=== PATIENT | female | born 1980 | race Caucasian/White ===

== ENCOUNTER 2023-11-24 07:49 | Outpatient (REF) | payer OTHER, SELFPAY ==
[2023-11-24 11:50] LABS: Thyroid Stimulating Hormone 0.57 uIU/mL (0.32-4.0)
[2023-11-25 15:38] LABS: Follicle Stimulating Hormone 38.9 mIU/mL
[2023-11-30 01:18] LABS: Estradiol Ultra Sensitive 101 pg/mL
== END 2023-11-24 07:50 | disposition home or self-care (01) ==
LOC: HO.10HDL 07:49
PROVIDERS: Visit Provider Obstetrics & Gynecology
DX: R61 Generalized hyperhidrosis (principal)
CPT/HCPCS: 36415; 82670; 83001; 84443

== ENCOUNTER 2024-03-23 07:10 | Outpatient (AMB) | payer OTHER, SELFPAY ==
--- NOTE | 2024-03-23 08:32 | MHC.OFFVIS ---
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 Denies any previous injuries. Patient reports pain on her right side scapula. She states she has a very large muscle knots that she has been having for a few years now. Her symptoms started intensifying about a year ago. She is unable to find a comfortable position. When her symptoms flare up she is unable to find relief. This is going on daily, different intensity depending on the day. She describes her pain as aching and pulling. Pressure feels better. When she pulls her arm forward and places a tennis ball on her scapula and then pushes against the wall this gives her relief. Occasionally having numbness and tingling in her right pinky and right ring finger which she thinks may be related to spine. Some times she feels like she has to pop something in her back so she will pull her arm forward forcefully and will find relief after the pop occurs. She has tried ibuprofen and naproxen for relief but has not been successful. Allergies Seasonal Allergies Allergy (Severe, Verified 03/23/24 08:35) Itchy Eyes Medication List - Last Reconciled 03/23/24 by Joann Byers MD amitriptyline 10 mg PO BEDTIME fremanezumab-vfrm (Ajovy) 675 mg subcut [id number] loratadine 10 mg PO DAILY sumatriptan 20 mg/actuation mg intranasal topiramate mg PO HPI Comments Details: Right upper back/scapular, gradually progressive, on/off but more consistent/intensified to becoming more constant. No shoulder anterior pain. Rare posterior neck pain. Non radiating to arm. She can adjust the area/posture to pop it. Occasional episodes with 4th and 5th digits. No weakness. Denies posterior headache. Treatment done so far: massage History of vertigo, migraines, thyroid. 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 Patient was appropriately conversant and oriented. Good historian. MSK: Inspection reveals appropriate head and neck positioning. No pain with palpation over the neck musculature. Cervical ROM was full. Spurling's sign negative. Bilateral shoulder, elbow and wrist ROM WNL. No ligamentous laxity or crepitance. No increased effusion. No scapular winging. Focal tenderness on right rhomboids spine or as it inserts into scapula. Negative Garcia sign. Negative empty can sign. Negative speed's test. Strength is 5/5 in all muscle groups tested. No increased tone noted. Neurological: Neurologic examination of the upper and lower extremities was nonfocal with intact sensation, muscle stretch reflexes and without focal motor deficits . Becerra?s negative bilaterally. Gait is non-antalgic without loss of balance. Office Procedures Therapeutic Injection Therapeutic Injection Details: Trigger point injection, right rhomboids minor. Conset obtained. Trigger points palpated on right rhomboids minor, proximal/as it attaches to scapula. Needling performed with gauge 27 needle, subsequently injecting 1 ml of 2% Lidocaine. Patient tolerated procedure well. Post-injection instructions given. 51241-Aiquppw Point Injection 1 or 2 sites All charges added?: Procedure code (CPT) selection complete Assessment & Plan Assessment & Plan (1) Pain of right scapula: Code(s): M89.8X1 - Other specified disorders of bone, shoulder Category: Medical (2) Myofascial pain: Code(s): M79.18 - Myalgia, other site Category: Medical Plan Very focal sharp pain on right rhomboids minor as it attaches to scapula. Almost feels like a tight cord. Suspect trigger point. She does not have any signs of cervical or thoracic spine radiculitis. There is no scapular winging. We talked about trigger point injections. Patient was eager to proceed. Patient tolerated procedure well. We will schedule 2 more, we total of 3 in series. Scapular x-ray was done prior to injection. Other options in the future would include referral to Dr. Delarosa for trigger point injection under ultrasound or PRP injection. Assessment and plan discussed with patient, and patient was agreeable. All questions were answered thoroughly. Joann Byers MD, YOLY Board Certified, [place] Board [employer] Medicine and Rehabilitation (ABPMR) Board Certified, [place] Board of Electrodiagnostic Medicine (ABEM) Orders: Orders XR scapula RT Today M89.8X1 - Other specified disorders of bone, shoulder AMB Trigger Point Injection Today M79.18 - Myalgia, other site Coding Level of Care Code New Pt Level 4 (40145) Diagnoses Pain of right scapula M89.8X1 Myofascial pain M79.18 CPT Codes Therapeutic Injection - Ther Injection 1: 89556-Ikvtedt Point Injection 1 or 2 sites ([id number])
[2024-03-23 08:33] VITALS: BMI 20.8
== END 2024-03-23 12:02 | disposition home or self-care (01) ==
PROVIDERS: Visit Provider Physical Medicine & Rehabilitation
DX: M89.8X1 Other specified disorders of bone, shoulder (principal); M79.18 Myalgia, other site
CPT/HCPCS: 20552; 99204

== ENCOUNTER 2024-03-23 07:10 | Outpatient (REF) | payer OTHER, SELFPAY | END 2024-03-23 07:11 | disposition home or self-care (01) | LOC: HO.HOSX 07:10 | PROVIDERS: Visit Provider Physical Medicine & Rehabilitation | DX: M79.18 Myalgia, other site (principal); M89.8X1 Other specified disorders of bone, shoulder | CPT/HCPCS: 20552; 73010; J2003 ==

== ENCOUNTER 2024-03-29 08:32 | Outpatient (AMB) | payer OTHER, MEDICAID, SELFPAY ==
[2024-03-29 08:36] VITALS: BMI 20.8
--- NOTE | 2024-03-29 08:36 | MHC.OFFVIS ---
Vital Signs 03/29/24 08:36 Height 5 ft 5 in Weight 125 lb BMI 20.8 Intake Visit Reasons: Trigger Point #2 Intake Note: Layla is a 43 year old female who presents today for: trigger point injection #2. Last injection administered on 03/23/24. Allergies Seasonal Allergies Allergy (Severe, Verified 03/29/24 08:36) Itchy Eyes HPI Comments Details: Layla says there was some relief overall from last week's injection. 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 I do not feel the same cord like swelling that I did last week. Office Procedures Therapeutic Injection Therapeutic Injection Details: Trigger point injection, right rhomboids minor. Consent obtained. Trigger points palpated on right rhomboids minor, proximal/as it attaches to scapula. Needling performed with gauge 27 needle, subsequently injecting 1 ml of 2% Lidocaine. 11658-Jjzzjrb Point Injection 1 or 2 sites All charges added?: Procedure code (CPT) selection complete Assessment & Plan Assessment & Plan (1) Myofascial pain: Code(s): M79.18 - Myalgia, other site Category: Medical Plan Tolerated procedure well. We have 1 last injection next week then we will continue to observe if this resolves her symptoms. No restrictions, can work out or exercise at home. Assessment and plan discussed with patient, and patient was agreeable. All questions were answered thoroughly. Joann Byers MD, YOLY Board Certified, [place] [employer] Medicine and Rehabilitation (ABPMR) Board Certified, [place] Board [employer] Electrodiagnostic Medicine (ABEM) Orders: Orders AMB Trigger Point Injection Today M79.18 - Myalgia, other site Coding Level of Care Code Procedure Only Diagnoses Myofascial pain M79.18 CPT Codes Therapeutic Injection - Ther Injection 1: 71682-Mkadict Point Injection 1 or 2 sites ([id number])
== END 2024-03-29 10:51 | disposition home or self-care (01) ==
LOC: HO.HOS 08:33
PROVIDERS: Visit Provider Physical Medicine & Rehabilitation
DX: M79.18 Myalgia, other site (principal)
CPT/HCPCS: 20552

== ENCOUNTER → 2024-03-29 08:32 | Outpatient (BNVA) | payer OTHER, MEDICAID, SELFPAY | PROVIDERS: Visit Provider Physical Medicine & Rehabilitation | DX: M79.18 Myalgia, other site (principal) | CPT/HCPCS: 20552; J2003 ==

== ENCOUNTER 2024-04-05 10:23 | Outpatient (AMB) | payer OTHER, MEDICAID, SELFPAY ==
--- NOTE | 2024-04-05 10:24 | A.OFFVIS_ITS ---
Intake Visit Reasons: Trigger Point #3 Intake Note: Layla is a 43 year old female who presents today for: trigger point injection #3. Patient reports her pain has traveled further down, she would like to discuss injection. Allergies Seasonal Allergies Allergy (Severe, Verified 04/05/24 10:25) Itchy Eyes HPI Comments Details: She feels that the area that was very tight and tender previously is now improved. But there is an area lower to that that is tighter now. 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 But she does have a tightness/trigger point a little bit lower to that area, on rhomboids major. Office Procedures Therapeutic Injection Therapeutic Injection Details: Trigger point injection, right rhomboids. Consent obtained. Trigger points palpated on right rhomboids. Needling performed with gauge 27 needle, subsequently injecting 1 ml of 2% Lidocaine., injecting 2 sites, total of 2 mL. Patient tolerated procedure well. Post-injection instructions given. 32081-Amtttsr Point Injection 1 or 2 sites All charges added?: Procedure code (CPT) selection complete Assessment & Plan Assessment & Plan (1) Myofascial pain: Code(s): M79.18 - Myalgia, other site Category: Medical Plan Tolerated procedure well. We might need to inject the new trigger point further. We will touch base with Layla tomorrow. Assessment and plan discussed with patient, and patient was agreeable. All questions were answered thoroughly. Joann Byers MD, YOLY Board Certified, [place] Board [employer] Medicine and Rehabilitation (ABPMR) Board Certified, [place] Board [employer] Electrodiagnostic Medicine (ABEM) Orders: Orders AMB Trigger Point Injection Today M79.18 - Myalgia, other site Coding Level of Care Code Procedure Only Diagnoses Myofascial pain M79.18 CPT Codes Therapeutic Injection - Ther Injection 1: 16140-Gnkbrco Point Injection 1 or 2 sites ([id number])
== END 2024-04-05 10:53 | disposition home or self-care (01) ==
LOC: HO.HOS 10:23
PROVIDERS: Visit Provider Physical Medicine & Rehabilitation
DX: M79.18 Myalgia, other site (principal); M89.8X1 Other specified disorders of bone, shoulder
CPT/HCPCS: 20552

== ENCOUNTER → 2024-04-05 10:23 | Outpatient (BNVA) | payer OTHER, MEDICAID, SELFPAY | PROVIDERS: Visit Provider Physical Medicine & Rehabilitation | DX: M79.18 Myalgia, other site (principal) | CPT/HCPCS: 20552; J2003 ==

== ENCOUNTER 2024-04-19 12:17 | Outpatient (AMB) | payer OTHER, MEDICAID, SELFPAY ==
--- NOTE | 2024-04-19 12:21 | A.OFFVIS_ITS ---
Vital Signs 04/19/24 12:22 Height 5 ft 5 in Weight 125 lb BMI 20.8 Intake Visit Reasons: Inj- Right Trigger Point Injection #4 Intake Note: Layla is a 43 year old female who presents today for: trigger point injection #4. Patient reports her pain has traveled further down, she would like to repeat her injection. Allergies Seasonal Allergies Allergy (Severe, Verified 04/19/24 12:22) Itchy Eyes HPI Comments Details: Reports improvement from last injection. 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 Consent obtained. Trigger points palpated on right rhomboids. Needling performed with gauge 27 needle, subsequently injecting 1 ml of 2% Lidocaine. Patient tolerated procedure well. Post-injection instructions given. 29895-Hqwnoyg Point Injection 1 or 2 sites All charges added?: Procedure code (CPT) selection complete Assessment & Plan Assessment & Plan (1) Myofascial pain: Code(s): M79.18 - Myalgia, other site Category: Medical Plan Tolerated procedure well. One more injection next week. Assessment and plan discussed with patient, and patient was agreeable. All questions were answered thoroughly. Joann Byers MD, YOLY Board Certified, [place] Board of Physical Medicine and Rehabilitation (ABPMR) Board Certified, [place] Board of Electrodiagnostic Medicine (ABEM) Orders: Orders AMB Trigger Point Injection Today M79.18 - Myalgia, other site Coding Level of Care Code Procedure Only Diagnoses Myofascial pain M79.18 CPT Codes Therapeutic Injection - Ther Injection 1: 99494-Jaamkfs Point Injection 1 or 2 sites ([id number])
[2024-04-19 12:22] VITALS: BMI 20.8
== END 2024-04-19 12:49 | disposition home or self-care (01) ==
LOC: HO.HOS 12:17
PROVIDERS: Visit Provider Physical Medicine & Rehabilitation
DX: M79.18 Myalgia, other site (principal); M89.8X1 Other specified disorders of bone, shoulder
CPT/HCPCS: 20552

== ENCOUNTER → 2024-04-19 12:17 | Outpatient (BNVA) | payer OTHER, MEDICAID, SELFPAY | PROVIDERS: Visit Provider Physical Medicine & Rehabilitation | DX: M79.18 Myalgia, other site (principal) | CPT/HCPCS: 20552; J2003 ==

== ENCOUNTER 2024-07-26 12:25 | Emergency (ER) | payer OTHER, SELFPAY ==
--- NOTE | ~2024-07-26 | US_ITS ---
EXAMINATION: US PELVIS CLINICAL INFORMATION: Right lower quadrant pain rule out ovarian torsion or abscess. COMPARISON: CT abdomen and pelvis with IV contrast performed earlier same day. TECHNIQUE: Ultrasound of the pelvis is performed using both transabdominal and transvaginal transducers along with Doppler. Transvaginal imaging is performed due to inadequate visualization transabdominally. FINDINGS: Uterus: The uterus is anteverted, anteflexed, and measures 11.5 x 4.1 x 5.1 cm. Normal-appearing cervix. The double wall endometrial thickness is 9 mm. It is uniform without irregularity. The uterus is smooth in contour and has normal myometrial echogenicity. No visible fibroid. Adnexa: Both ovaries are visualized. There is normal color flow to the adnexa. There is no ovarian torsion. There is no pelvic ascites or fluid collection. Right ovary measures 2.7 x 1.2 x 1.3 cm. Volume = 2.2 mL. Normal sonographic appearance. Left ovary measures 2.4 x 2.5 x 2.2 cm. Volume = 7.2 mL. 1.9 cm follicular simple cyst. Otherwise normal sonographic appearance. US/US pelvic ovarian doppler IMPRESSION: Normal pelvic ultrasound. Electronically signed by: Andrew Meyer MD 07/26/2024 04:33 PM EDT
--- NOTE | ~2024-07-26 | CT_ITS ---
EXAMINATION: CT ABDOMEN PELVIS WITH IV CONTRAST HISTORY: RLQ pain COMPARISON: There are no prior studies for comparison. TECHNIQUE: CT scan of the abdomen and pelvis was performed following administration of 85 mL Omnipaque 350 using standard departmental protocol. Coronal and sagittal reformatted images were generated and reviewed. Oral contrast material was not administered at the request of the referring physician. This CT exam was performed with one or more of the following dose reduction techniques: automated exposure control, adjustment of the mA and/or kV according to patient size, use of iterative reconstruction technique. DLP: 397 mGy-cm FINDINGS: LOWER CHEST: The visualized lung bases are clear. There is no pleural effusion. CARDIOVASCULATURE: The heart is normal in size. There is no pericardial effusion. LIVER: The liver is normal in size and contour. No liver mass is identified. The hepatic and portal veins are patent. GALLBLADDER / BILE DUCTS: The gallbladder is unremarkable. There is no intra or extrahepatic biliary ductal dilatation. SPLEEN: The spleen is normal in size. No focal splenic lesion is identified. PANCREAS: The pancreas is unremarkable in appearance. ADRENAL GLANDS: Within normal limits. KIDNEYS/RETROPERITONEUM: There is a punctate nonobstructing calculus at the lower pole of the right kidney. There is no hydronephrosis. The left kidney is unremarkable. No renal masses are identified. LYMPH NODES: No abdominal or pelvic lymphadenopathy. VASCULATURE: The abdominal aorta is normal in caliber. MESENTERY/PERITONEUM: No free fluid. No masses. There is no free intraperitoneal gas. STOMACH: The stomach is collapsed, limiting evaluation. SMALL BOWEL: The small bowel is normal in caliber. COLON: There is a large amount of stool throughout the colon. APPENDIX: Normal. URINARY BLADDER/PELVIC ORGANS: The urinary bladder is unremarkable. The uterus and ovaries are unremarkable. BONES / SOFT TISSUES: No suspicious bony or soft tissue abnormalities. CT/CT abdomen pelvis w IV con IMPRESSION: 1. Large amount of stool throughout the colon. 2. A normal appendix is visualized. 3. Punctate right lower pole renal calculus. Electronically signed by: Corbin Prasad MD 07/26/2024 03:22 PM EDT
--- NOTE | ~2024-07-26 | US_ITS ---
EXAMINATION: US PELVIS CLINICAL INFORMATION: Right lower quadrant pain rule out ovarian torsion or abscess. COMPARISON: CT abdomen and pelvis with IV contrast performed earlier same day. TECHNIQUE: Ultrasound of the pelvis is performed using both transabdominal and transvaginal transducers along with Doppler. Transvaginal imaging is performed due to inadequate visualization transabdominally. FINDINGS: Uterus: The uterus is anteverted, anteflexed, and measures 11.5 x 4.1 x 5.1 cm. Normal-appearing cervix. The double wall endometrial thickness is 9 mm. It is uniform without irregularity. The uterus is smooth in contour and has normal myometrial echogenicity. No visible fibroid. Adnexa: Both ovaries are visualized. There is normal color flow to the adnexa. There is no ovarian torsion. There is no pelvic ascites or fluid collection. Right ovary measures 2.7 x 1.2 x 1.3 cm. Volume = 2.2 mL. Normal sonographic appearance. Left ovary measures 2.4 x 2.5 x 2.2 cm. Volume = 7.2 mL. 1.9 cm follicular simple cyst. Otherwise normal sonographic appearance. US/US pelvic complete IMPRESSION: Normal pelvic ultrasound. Electronically signed by: Andrew Meyer MD 07/26/2024 04:33 PM EDT
[2024-07-26 12:39] VITALS: BP 113/71; PULSE 78; RESP 16; TEMP 36.6; O2SAT 100; BMI 21.9
[2024-07-26] MEDS: 0.9 % Sodium Chloride 1,000 ML 999 ML IV (13:07)
--- NOTE | 2024-07-26 13:07 | ED.GENADULT ---
HPI - General Adult General Chief complaint: Abdominal Pain Stated complaint: Lower R quadrant pain, diarrhea Time Seen by Provider: 07/26/24 12:41 Source: patient Mode of arrival: ambulatory Limitations: no limitations History of Present Illness ED Provider: Gary Leblanc HPI narrative: 43-year-old female with past medical history of myofascial pain presents to the ED for Right lower quadrant pain for the past 3 days and yesterday had diarrhea. patient states no diarrhea today. Patient states history of right ovarian cyst that self resolved. Patient denies any vaginal bleeding, vaginal discharge, dysuria, hematuria, or flank pain Related Data Home Medications ?Medication ?Instructions ?Recorded ?Confirmed amitriptyline 10 mg tablet 10 mg PO BEDTIME 03/23/24 03/23/24 fremanezumab-vfrm 225 mg/1.5 mL 675 mg subcut [id number] 03/23/24 03/23/24 subcutaneous auto-injector (Ajovy) loratadine 10 mg tablet 10 mg PO DAILY 03/23/24 03/23/24 sumatriptan 20 mg/actuation nasal mg intranasal 03/23/24 03/23/24 spray topiramate 50 mg tablet mg PO 03/23/24 03/23/24 Previous Rx's ?Medication ?Instructions ?Recorded naproxen 500 mg tablet 500 mg PO BID PRN pain #14 tabs 07/26/24 Allergies Allergy/AdvReac Type Severity Reaction Status Date / Time Seasonal Allergies Allergy Severe Itchy Eyes Verified 07/26/24 12:44 Review of Systems Review of Systems: Right lower quadrant abdominal pain. 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 Vital Signs: Vital Signs - 24 hr 07/26/24 12:39 07/26/24 17:37 Temperature 97.8 F 98.0 F Pulse Rate 78 76 Respiratory Rate 16 16 Blood Pressure 113/71 112/73 Pulse Oximetry 100 96 Oxygen Delivery Method Room Air Room Air BMI result Body Mass Index 21.9 Const General: cooperative, healthy appearing, comfortable, no acute distress, well developed, alert, awake and Physically active Orientation/consciousness: patient oriented x3 HENMT Head: Yes normal to inspection, Yes No palpable skull fracture present, Yes normocephalic and Yes atraumatic Eyes General: appearance normal, both eyes and all related structures Neck Neck: Yes normal visual inspection, Yes full ROM, Yes no lymphadenopathy, Yes no meningeal signs, Yes trachea midline, Yes supple, No anterior neck swelling and No tender Chest Chest palpation & inspection: normal inspection of the chest and normal palpation of entire chest wall Resp Effort & Inspection: normal respiratory effort and able to speak in complete sentences Auscultation: clear to auscultation bilaterally Cardio Jugular venous distension: no JVD Heart sounds: S1 normal heart sound present and S2 normal heart sound present GI Inspection: Yes normal to inspection Palpation (GI): Soft to palpation, not firm, Tenderness to palpation present (GI) in the RLQ, no guarding and not rigid General: Yes no CVA tenderness Back/Spine/Pelvis Back: no CVA tenderness and No back tenderness Skin General skin exam: no rashes or lesions noted, elasticity normal and turgor normal Neuro General: patient oriented x3, gait normal, tone normal, moves all extremities, Normal light touch and pain sensation, no meningeal signs, no focal motor deficits, CN's II-XI intact bilaterally and normal sensation to monofilament Extrem General: Yes normal to inspection, Yes full ROM and Yes capillary refill normal Psych Appearance: grossly normal, well kempt and not disheveled Medications Administered Discontinued Medications Generic Name Dose Route Start Last Admin Trade Name Freq PRN Reason Stop Dose Admin Sodium Chloride 1,000 mls @ 999 mls/hr 07/26/24 12:49 07/26/24 16:13 Ns IV 07/26/24 13:49 Infused .Q1H1M STA Infusion Iohexol 100 ml 07/26/24 15:04 07/26/24 15:05 Iohexol 350 Mg/Ml 100 Ml Infus..Btl IV 07/26/24 15:05 85 ml ONCE ONE Administration Ketorolac Tromethamine 30 mg 07/26/24 14:00 07/26/24 14:05 Ketorolac Tromethamine 30 Mg/Ml Vial IVPUSH 07/26/24 14:01 30 mg ONCE ONE Administration Medical Decision Making Medical Decision Making MDM Narrative: 43 year old female presents to ED for right lower quadrant tenderness for the past 4 days. Positive for right lower quadrant tenderness on palpation. Labs ordered. 5:06pm: Ultrasound came back negative for torsion or abscess. CT scan came back negative for appendicitis. CT scan shows large amount of stool throughout the colon. CT scan shows renal stone in right renal pelvis. Negative for any signs of hydronephrosis or pyelonephritis. Patient states she had bowel movement last night and take MiraLax every day and does not feel constipated. Patient has had bowel movements every day for the past 3 days. Patient explained worrisome signs and informed to return to the ED immediately. Patient informed to continue taking MiraLax. Not suspecting cholecystitis, pancreatitis, perforation, ectopic , or any other life-threatening etiology Differential Diagnosis Differential Diagnoses: The differential diagnosis associated with the presentation includes (Appendicitis, ovarian torsion, ovarian abscess, UTI) Admission/Observation Consideration of admission/observation: Escalation of care including admission/observation considered Lab Data MDM Lab Attestation statement: I reviewed the patient's lab results. 07/26/24 13:07 07/26/24 13:47 Labs: Lab Results 07/26/24 07/26/24 Range/Units 13:07 13:47 WBC 6.5 (4.8-10.8) X10*3/uL RBC 4.05 L (4.20-5.50) X10*6/uL Hgb 12.9 (12.0-16.0) g/dl Hct 37.7 (37.0-47.0) % MCV 93.1 (80.0-98.0) fL MCH 31.9 (27.0-33.0) pg MCHC 34.2 (31.0-35.0) g/dl RDW 13.4 (11.0-16.0) % Plt Count 315 (160-400) X10*3/uL MPV 9.9 (9.4-12.3) fL Immature Gran % (Auto) 0.3 (0.0-0.4) % Neut % (Auto) 63.5 (45-73) % Lymph % (Auto) 19.0 L (20-40) % Morris % (Auto) 8.0 (2-11) % Eos % (Auto) 8.1 H (0-4) % Baso % (Auto) 1.1 (0-2) % Lymph # (Auto) 1.2 (1.2-4.9) X10*3/uL Morris # (Auto) 0.5 (0.1-1.2) X10*3/uL Eos # (Auto) 0.5 H (0.0-0.4) X10*3/uL Baso # (Auto) 0.1 (0.0-0.2) X10*3/uL Abs Immat Gran (auto) 0.02 (0.00-0.03) X10*3/uL Absolute Neuts (auto) 4.1 (2.0-8.3) x10*3/uL Absolute Nucleated RBC 0.000 (0.0-0.012) X10*3/uL Nucleated RBC % (auto) 0.0 (0.0-0.2) /100WBC Sodium 140 (135-145) mmol/L Potassium 3.7 (3.3-5.1) mmol/L Chloride 110 H (96-108) mmol/L Carbon Dioxide 23 (22-29) mmol/L Anion Gap 11 L (12-20) BUN 15 (9-16) mg/dL Creatinine 0.67 (0.5-1.4) mg/dL Estim Creat Clear Calc 97.4 Estimated GFR > 60 Random Glucose 91 (60-115) mg/dL Calcium 8.7 (8.4-10.2) mg/dL Total Bilirubin 1.3 H (0.0-1.0) mg/dL AST 30 (5-31) U/L ALT 41 H (0-31) U/L Alkaline Phosphatase 59 (39-117) U/L Total Protein 7.4 (6.5-8.0) g/dL Albumin 4.1 (3.5-5.0) g/dL Lipase 34 (8-78) U/L Beta HCG, Quant < 2 mIU/mL Urine Color Yellow Urine Appearance Clear Urine pH 6.5 (5.0-9.0) Ur Specific [place] <= 1.005 (1.005-1.025) Urine Protein Negative (Neg-Trace) mg/dL Urine Glucose (UA) Negative (Negative) mg/dL Urine Ketones Negative (Negative) mg/dL Urine Blood Negative (Negative) Urine Nitrite Negative (Negative) Ur Leukocyte Esterase Negative (Negative) Urine Test NEGATIVE (NEGATIVE) Independent Interpretation I performed an independent interpretation of an: Ultrasound and CT Scan Radiology Impression Discussion of test interpretation with radiology: I have reviewed the radiologist's reading. Independent Historian Clinical information obtained from an independent historian. History obtained from or confirmed by: Other (Patient) Prescription Management I considered prescription management with: Pain Medication Discharge Plan Discharge Clinical Impression: Abdominal pain, Calculus of renal pelvis Patient Disposition: Home, Self-Care Instructions: Kidney Stones (ED), Abdominal Pain (ED) Additional Instructions: Recommend follow-up with primary care provider and neurologist. Lab work and images came back reassuring. CT scan shows large amount of stool in colon and right renal pelvis calculus. Return to the ED immediately for any worsening abdominal pain, vaginal discharge, vaginal bleeding, dysuria, hematuria, flank pain, blood in stool, profuse diarrhea, fever, chills, or any other concerning symptoms. FINDINGS: Uterus: The uterus is anteverted, anteflexed, and measures 11.5 x 4.1 x 5.1 cm. Normal-appearing cervix. The double wall endometrial thickness is 9 mm. It is uniform without irregularity. The uterus is smooth in contour and has normal myometrial echogenicity. No visible fibroid. Adnexa: Both ovaries are visualized. There is normal color flow to the adnexa. There is no ovarian torsion. There is no pelvic ascites or fluid collection. Right ovary measures 2.7 x 1.2 x 1.3 cm. Volume = 2.2 mL. Normal sonographic appearance. Left ovary measures 2.4 x 2.5 x 2.2 cm. Volume = 7.2 mL. 1.9 cm follicular simple cyst. Otherwise normal sonographic appearance. US/US pelvic complete IMPRESSION: Normal pelvic ultrasound. Electronically signed by: Andrew Meyer MD 07/26/2024 04:33 PM EDT EXAMINATION: CT ABDOMEN PELVIS WITH IV CONTRAST HISTORY: RLQ pain COMPARISON: There are no prior studies for comparison. TECHNIQUE: CT scan of the abdomen and pelvis was performed following administration of 85 mL Omnipaque 350 using standard departmental protocol. Coronal and sagittal reformatted images were generated and reviewed. Oral contrast material was not administered at the request of the referring physician. This CT exam was performed with one or more of the following dose reduction techniques: automated exposure control, adjustment of the mA and/or kV according to patient size, use of iterative reconstruction technique. DLP: 397 mGy-cm FINDINGS: LOWER CHEST: The visualized lung bases are clear. There is no pleural effusion. CARDIOVASCULATURE: The heart is normal in size. There is no pericardial effusion. LIVER: The liver is normal in size and contour. No liver mass is identified. The hepatic and portal veins are patent. GALLBLADDER / BILE DUCTS: The gallbladder is unremarkable. There is no intra or extrahepatic biliary ductal dilatation. SPLEEN: The spleen is normal in size. No focal splenic lesion is identified. PANCREAS: The pancreas is unremarkable in appearance. ADRENAL GLANDS: Within normal limits. KIDNEYS/RETROPERITONEUM: There is a punctate nonobstructing calculus at the lower pole of the right kidney. There is no hydronephrosis. The left kidney is unremarkable. No renal masses are identified. LYMPH NODES: No abdominal or pelvic lymphadenopathy. VASCULATURE: The abdominal aorta is normal in caliber. MESENTERY/PERITONEUM: No free fluid. No masses. There is no free intraperitoneal gas. STOMACH: The stomach is collapsed, limiting evaluation. SMALL BOWEL: The small bowel is normal in caliber. COLON: There is a large amount of stool throughout the colon. APPENDIX: Normal. URINARY BLADDER/PELVIC ORGANS: The urinary bladder is unremarkable. The uterus and ovaries are unremarkable. BONES / SOFT TISSUES: No suspicious bony or soft tissue abnormalities. CT/CT abdomen pelvis w IV con IMPRESSION: 1. Large amount of stool throughout the colon. 2. A normal appendix is visualized. 3. Punctate right lower pole renal calculus. Electronically signed by: Corbin Prasad MD 07/26/2024 03:22 PM EDT Prescriptions: New naproxen 500 mg tablet 500 mg PO BID PRN (Reason: pain) Qty: 14 0RF No Action loratadine 10 mg tablet 10 mg PO DAILY topiramate 50 mg tablet PO amitriptyline 10 mg tablet 10 mg PO BEDTIME Ajovy Autoinjector 225 mg/1.5 mL auto-injector 675 mg subcut [id number] Rx Instructions: administer as 3 consecutive 225 mg injections sumatriptan 20 mg/actuation spray,non-aerosol intranasal Referrals: [facility] [place] [facility] [Provider Group] (Right renal pelvic stone) Stand Alone Forms: Work/School Release Interventions: ED Discharge Assessment Last Done: 07/26/24 17:37 Discharge Date/Time: 07/26/24 17:37 Print Language: Slovak
[2024-07-26 13:13] LABS: MANUAL DIFF FLAG NO
[2024-07-26 13:15] LABS: Basophils Absolute Auto 0.1 X10*3/uL (0.0-0.2); Basophils Percent Auto 1.1 % (0-2); Eosinophils Absolute Auto 0.5 X10*3/uL (0.0-0.4); Eosinophils Percent Auto 8.1 % (0-4); Hematocrit 37.7 % (37.0-47.0); Hemoglobin 12.9 g/dl (12.0-16.0); Imm Gran Abs Auto 0.02 X10*3/uL (0.00-0.03); Imm Gran Pct Auto 0.3 % (0.0-0.4); Lymphocytes Absolute Auto 1.2 X10*3/uL (1.2-4.9); Mean Corpuscular HGB Conc 34.2 g/dl (31.0-35.0); Mean Corpuscular Hemoglobin 31.9 pg (27.0-33.0); Mean Corpuscular Volume 93.1 fL (80.0-98.0); Mean Platelet Volume 9.9 fL (9.4-12.3); Monocytes Absolute Auto 0.5 X10*3/uL (0.1-1.2); Neutrophils Absolute Auto 4.1 x10*3/uL (2.0-8.3); Neutrophils Percent Auto 63.5 % (45-73); Platelet Count 315 X10*3/uL (160-400); Red Blood Count 4.05 X10*6/uL (4.20-5.50); Red Cell Distribution Width 13.4 % (11.0-16.0); White Blood Count 6.5 X10*3/uL (4.8-10.8)
--- NOTE | 2024-07-26 13:20 | PC.NURSE ---
patient a&ox3, iv inserted, labs drawn, rlq pain, IVF hung per order, pt medicated for pain per order, vss, call frederick within reach, awaiting US, plan of care ongoing.
[2024-07-26 13:56] LABS: Appearance Urine Clear; Color Urine Yellow; Glucose Urine UA Negative (Negative); Leukocyte Esterase Urine Negative (Negative); Nitrite Urine Negative (Negative); PH 6.5 (5.0-9.0); Specific Gravity - Urine <= 1.005 (1.005-1.025); UPreg QC Valid YES; Urine Blood Negative (Negative); Urine Ketones Negative (Negative); Urine Pregnancy NEGATIVE (NEGATIVE); Urine Protein Negative (Neg-Trace)
--- NOTE | 2024-07-26 14:00 | PC.NURSE ---
pt to US
[2024-07-26] MEDS: Ketorolac Tromethamine 30 MG/ML VIAL IVPUSH (14:05)
[2024-07-26 14:16] LABS: Alanine Aminotransferase 41 U/L (0-31); Albumin Level 4.1 g/dL (3.5-5.0); Alkaline Phosphatase 59 U/L (39-117); Anion Gap 11 (12-20); Aspartate Amino Transferase 30 U/L (5-31); Bilirubin Total 1.3 mg/dL (0.0-1.0); Blood Urea Nitrogen 15 mg/dL (9-16); Calcium 8.7 mg/dL (8.4-10.2); Carbon Dioxide 23 mmol/L (22-29); Chloride 110 mmol/L (96-108); Creatinine Clr Calc Pharmacy 97.4; Estimated Glomerular Filt Rate > 60; Glucose Random 91 mg/dL (60-115); Lipase 34 U/L (8-78); Potassium 3.7 mmol/L (3.3-5.1); Sodium 140 mmol/L (135-145); Total Protein 7.4 g/dL (6.5-8.0)
[2024-07-26 14:17] LABS: HCG Quantitative < 2 mIU/mL
[2024-07-26] MEDS: iohexoL 350 MG/ML 100 ML INFUS..BTL IV (15:05)
--- OUTSIDE RECORDS SUMMARY | 2024-07-26 16:51 | XMS_ITS | Encounter Summary ---
Author Organization [facility] Address [address] [place] [address] Care Team Providers Care Scientific Informatics Analyst Name Role Phone Natalie Blevins Primary Care Provider [phone] Encounter Details Date Type Department Care Team (Late Contact Info) Description 07/09/2024 myChart Message [facility] 198 [facility] Allergy/Immunology [address] [place] [address] Kylee Hernandez DO [address] [place] [address] Allergy Shots Social History Tobacco Use Types Packs/Day Years Used Date Smoking Tobacco: Never Smokeless Tobacco: Never Alcohol Use Standard Drinks/Week Comments Not Currently 0 (1 standard drink = 0.6 oz pur e alcohol) Comments Unknown Sex and Gender Information Value Date Recorded Sex Assigned at Female 01/31/2024 2:43 PM EDT Legal Sex Female 7:15 AM EDT Gender Identity Female 01/31/2024 2:43 PM EDT Sexual Orientation Straight 01/31/2024 2: 43 PM EDT documented as of this encounter Plan of Treatment Upcoming Encounters Date Type Department Care Team (Late st Contact Info) Description 02/06/2025 10:00 AM EDT Office Visit [facility] 198 [facility] Allergy/Immunology [address] [place] [address] Kylee Hernandez DO [address] [place] [address] documented as of this encounter Visit Diagnoses Not on filedocumented in this encounter Care Teams Scientific Informatics Analyst Relationship Specialty Start Date End Date Natalie Blevins [address] [place] [address] PCP - General Family Medicine 03/04/23 documented as of this encounter
--- OUTSIDE RECORDS SUMMARY | 2024-07-26 16:52 | XMS_ITS | Data Portability ---
Author Organization [facility], [address] Address [address] [place] [address] Assessment No assessment recorded. Plan of Treatment Reminders Order Date Submit Date Provider Last Modified By Organization Details Last Modified Time Details Appointments None recorded. Lab rapid strep group A, throat 2023 024 [email or web address] [facility], [address] [place], [address], 4 10:42:46 SARS CoV 2 (COVID-19) Ag, QL, IA, upper respiratory specimen 2023 024 [email or web address] [facility] [address] [place], [address], 4 10:42:48 rapid flu (A+B) 2021 022 [email or web address] _[facility], [address] [place], [address], 2 12:08:31 Referral None recorded. Procedures None recorded. Surgeries None recorded. Imaging None recorded. Medication Orders Paxlovid 300 mg (150 mg x 2)-100 mg tablets in a dose pack 2023 024 [facility]/Pharmacy #[id number], [address] [facility], [place], [address], 4 10:42:46 benzonatate 100 mg capsule 122021 [facility]1230, [address] [place], [address], 4 09:49:26 Tamiflu 75 mg capsule 2021 [facility], [address] [place], [address], 4 09:49:35 albuterol sulfate HFA 90 mcg/actuati on aerosol inhaler [address]/Pharmacy #1230, [address] [place], [address], 09:54:24 Patient TargetsNo targets recorded. Patient Instructions Encounter Date Encounter Id Patient Instructions Last Modified By Organization Details Last Modified Time 05/02/2022 [id number] influenza (flu): care instructions [email or web address] Not available 05/02/2022 12:08:31 Go to the [facility] emergency department if you develop ANY new or worsening symptoms. Call 911 if you feel that you are having a medical emergency. Call your primary care physician today to set up a follow up appointment within one week. Not following up with your primary care physician may result in adverse health conditions. If you have any questions or concerns, please call us. Take over the counter medications such as ibuprofen or tylenol according to package instructions. Do not exceed maximum dosage for age/weight. Do not take anything that you might be allergic to. Make sure to consult us or your primary care physician if you take medications such as blood thinners or blood pressure medications before taking over the counter medications. The best over the counter cough medication for people with high blood pressure is Coricidin, which is available at any pharmacy without a prescription. Drink plenty of water. [email or web address] Not available 05/02/2022 13:05:18 01/25/2024 [id number] Acute Sinusitis: Care Instructions [email or web address] Not available 01/25/2024 10:42:44 You have been Diagnosed with COVID - your Rapid COVID test was positive. I recommend the following to help with your symptoms of this viral infection: 1. Take Ibuprofen or Tylenol if you do not have any allergies to these medications. If you take a blood thinner you should not take NSAIDS like Ibuprofen. These medication will help with the inflammation in your respiratory tract which should help the cough. 2. I suggest taking a Antihistamine (loratadine or cetirizine or Gail or benadryl) - to help with the congestion. I would advise this over a decongestant. 3. Saline Nasal [place] 4. Salt Water Gargles. I would be seen again immediately in the Emergency Room if you develop: 1. Shortness of Breath 2. Chest Pain 3. Fever > 101.0 4. Lethargy or Confusion. You should notify you PCP that you have been diagnosed with this infection. Below is the current CDC guidelines. Updated CDC Guidelines for Quarantine and Testing - 05/23/2021 If You Test Positive for COVID-19 (Isolate) Everyone, regardless of vaccination status. 1. Stay home for 5 days. 2. If you have no symptoms or your symptoms are resolving after 5 days, you can leave your house. 3. Continue to wear a mask around others for 5 additional days. If you have a fever or feel worse, continue to stay home until your fever resolves. If You Were Exposed to Someone with COVID-19 (Quarantine) If you: Have been boosted OR Completed the primary series of Pfizer or Moderna vaccine within the last 6 months. OR Completed the primary series of J&J vaccine within the last 2 months 1. Wear a mask around others for 10 days. 2. Test on day 5, if possible. 3. If you develop symptoms get a test and stay home. If you: Completed the primary series of Pfizer or Moderna vaccine over 6 months ago and are not boosted OR Completed the primary series of J&J over 2 months ago and are not boosted OR Are un-vaccinated 1. Stay home for 5 days. After that continue to wear a mask around others for 5 additional days. 2. Test on day 5, if possible. If you develop symptoms get a test and stay home Quarantine Calculation: Day 0: is the first day of symptoms or a positive viral test. Day 1: is the first full day after your symptoms developed or when your test specimen was collected. Exposure: Day 1: is the first full day after your last known contact with a person that tested positive for COVID 19. [facility] Thank you for visiting [facility] today, please feel free to call our office you have any questions or concerns. [email or web address] Not available 01/25/2024 10:42:42 Reason for Referral None Reported. Results Created Date Observation Date Name Description Value Unit Range Abnormal Flag Note LastModifiedBy Organization Detail LastModifiedTime 05/02/20 22 05/02/2022 rapid flu (A+B) Unknown Analyte Normal = Negati ve Not Available [address] [place], [address], 05/02/2022 11:39:58 05/02/20 22 05/02/2022 rapid flu (A+B) Unknown Analyte positi ve Not Available [address] [place] [address] [place], [address], 05/02/2022 11:39:58 05/02/20 22 05/02/2022 rapid flu (A+B) Unknown Analyte Normal = Negati ve Not Available [address] [place] [address] [place], [address], 05/02/2022 11:39:58 05/02/20 22 05/02/2022 rapid flu (A+B) Unknown Analyte negati ve Not Available [address] [place] [address] [place], [address], 05/02/2022 11:39:58 01/25/20 24 01/25/2024 SARS CoV 2 (COVI D-19) Ag, QL, IA, upper respi rator y speci men Unknown Analyte positi ve Not Available [address] [place], [place] [address] [place], [address], 01/25/2024 09:56:55 01/25/2001/25/2024 SARS CoV 2 (COVI D-19) Ag, QL, IA, upper respi rator y speci men Unknown Analyte yes Not Available [address] [place], [address], 01/25/2024 09:56:55 01/25/2001/25/2024 rapid strep group A, throa t Unknown Analyte negati ve Not Available [address] [place], [address], 01/25/2024 09:56:49 01/25/2001/25/2024 rapid strep group A, throa t Unknown Analyte yes Not Available [address] [facility] [address] [address] [place], [address], 01/25/2024 09:56:49 Result Notes None recorded. Problems Name Problem SNOMED Code Status Onset Date Resolution Date Notes Provider Name and Address Organization Details Recorded Time Migraine 71249480 Active SAMMI DEPINTO null, PA - [facility] 2 11:37:59 Goiter 4085752 Active 022 SAMMI DEPINTO null, PA - [facility] 2 11:38:32 Depressive disorder 44588414 Active [place]ari [place] null, [place] - [facility] 4 09:50:43 Problem Notes None recorded. Procedures Surgical History Date Name Laterality Status Provider Name and Address Organization Details Recorded Time 4 delivery completed SAMMI DEPINTO PA - [facility] 05/02/2022 11:39:23 0 excision of benign tumor of breast completed SAMMI DEPINTO PA - [facility] 05/02/2022 11:39:44 extraction of wisdom tooth completed SAMMI DEPINTO PA - [facility] 05/02/2022 11:39:51 Imaging Results None recorded. Procedure Notes None recorded. Medical Equipment None Reported. Allergies Allergen ID Allergen Name Allergen Category Reaction Reaction Severity Criticality Documentation Date Start Date Code Code System Note Provider Name and Address Organization Details Recorded Time 398706 tree and shrub pollen environme nt,medica tion Not available Not available Not available 01/25/2024 58055 UNK Pari kyle PA - [facility] 4 09:53:35 Medications Name Sig Start Date Stop Date Status Note LastModified by Organization Details LastModified Time Topamax 25 mg tablet Take 1 tablet every day by oral route. active Not Available Not Available No t Available Tamiflu 75 mg capsule Take 1 capsule twice a day by oral route for 5 days. 01/24 completed Not Available Not Available Not Available benzonatate 100 mg capsule Take 1 capsule 3 times a day by oral route. 01/24 completed Not Available Not Available Not Available albuterol sulfate HFA 90 mcg/actuati on aerosol inhaler Inhale 2 puffs every 6 hours by inhalatio n route. 01/24 completed Not Available Not Available Not Available loratadine active Not Available Not Av ailable Not Available amitriptyli ne active Not Available Not Available Not Available Flonase Allergy Relief active Not Available Not Available Not Available Emgality Syringe 01/24 completed Not Available Not Available Not Available Tosymra active Not Available Not Avail able Not Available Ajovy Autoinjecto r active Not Available Not Available Not Available Paxlovid 300 mg (150 mg x 2)-100 mg tablets in a dose pack use as directed 2023 active Not Available Not Available Not Avai lable Vitals Date Recorded Body height Body mass index (BMI) Body weight Pain severity - 0-10 verbal numeric rating [Score] - Reported Oxygen saturation Oxygen saturation in Arterial blood by Pulse oximetry Heart rate Respiratory rate Body temperature Systolic blood pressure Diastolic blood pressure Provider Name and Address Organization Details Last Updated DateTime 2 165.1 cm 19 kg/m2 18214.5 3 g 4 98 % 98 % 119 /min 18 /min 98.2 [degF] 107 mm[Hg] 72 mm[Hg] SAMMI DEPINTO PA - [facility] 2 11:44:17 Date Recorded Body height Body mass index (BMI) Body weight Body temperature Oxygen saturation Oxygen saturation in Arterial blood by Pulse oximetry Heart rate Respiratory rate Systolic blood pressure Diastolic blood pressure Provider Name and Address Organization Details Last Updated DateTime 4 165.1 cm 19.1 kg/m2 46757.1 2 g 97.9 [degF] 100 % 100 % 106 /min 14 /min 100 mm[Hg] 67 mm[Hg] [place] [facility] 4 09:56:25 Social History Question Answer Notes LastModified by Organizat ion Details LastModified Time Tobacco Smoking Status Never Smoker [facility] 05/02/2022 11:42:34 What Is Your Level Of Alcohol Consumption? None Information not available 05/02/2022 Have You Had A Flu Shot This Season? No Information not available 01/25/2024 If No, Would You Like A Flu Shot Today? No Information not available 01/25/2024 Do You Use Any Illicit Or Recreational Drugs? No Information not available 05/02/2022 Have You Recently Traveled Abroad? No Information not available 05/02/2022 Do You Or Have You Ever Used Any Other Forms Of Tobacco Or Nicotine? No Information not available 05/02/2022 Sex: Unknown Functional Status None recorded. Mental Status None recorded. Family History Relationship Description Onset Age of this Age Resolved Age Notes LastModified by Organization Details LastModified Time Mother Kidney disease Not available 2021 11:39:02 Medical History No medical history recorded. Gynecological History Statement/Question Response Date of LMP 01/25/2024 Obstetrics History GPAL:G 0 P 0 0 0 0 Immunizations Vaccine Type Date Status Note Provider Nam e and Address Organization Details Recorded Time COVID-19, mRNA, LNP-S, PF, 100 mcg/0.5mL dose or 50 mcg/0.25mL dose 07/24/2020 completed [facility] 05/02/2022 11:36:19 yellow fever live 07/29/2006 completed SAMMI DEPINTO null, PA - [facility] 05/02/2022 11:36:19 COVID-19, mRNA, LNP-S, bivalent, PF, 30 mcg/0.3 mL dose 04/02/2022 completed SAMMI DEPINTO null, PA - [facility] 05/02/2022 11:36:19 typhoid, ViCPs 07/29/2006 completed SAMMI DEPIN TO null, PA - [facility] 05/02/2022 11:36:19 Influenza, MDCK, quadrivalent, PF 02/12/2022 completed SAMMI DEPINTO null, PA - [facility] 05/02/2022 11:36:19 COVID-19, mRNA, LNP-S, PF, 100 mcg/0.5mL dose or 50 mcg/0.25mL dose 06/28/2020 completed SAMMI DEPINTO null, PA - [facility] 05/02/2022 11:36:19 Influenza, split virus, quadrivalent, PF 02/11/2020 completed SAMMI DEPINTO null, PA - [facility] 05/02/2022 11:36:19 COVID-19, mRNA, LNP-S, PF, 30 mcg/0.3 mL dose, erick-sucrose 11/06/2021 completed SAMMI DEPINTO null, PA - [facility] 05/02/2022 11:36:19 Past Encounters Encounter ID Performer Location Encounter Start Date Encounter Closed Date Diagnosis/Indication Diagnosis SNOMED-CT Code Diagnosis ICD10 Code Diagnosis Note [id number] [address] [place] [address] 09/13/2021 09:08:24 09/13/2021 10:35:40 [id number] [facility] Vyas [address] [place] [address] 05/02/2022 10:07:30 05/02/2022 12:19:56 Influenza caused by Influenza A virus 088334100 J09.X2 [id number] [facility] LARIOS [address] [place] [address] 01/25/2024 09:26:14 01/25/2024 10:45:01 COVID-19 741227704 U07.1 Health Concerns Section Related Observation LastModified by Organization Detai ls LastModified Time None Recorded Concern Status LastModified by Organization Details LastModified Time None Recorded Advance Directives Directive None Recorded Payers Encounter Date Sequence Insurance Name Policy Number Policy Roman Covered Member ID Roman Member ID Guarantor Name 09/13/2021 1 [place] [id number] Layla Kai [id number] Layla Kai 05/02/2022 1 [place] [id number] Layla Kai [id number] Lalya Kai 01/25/2024 1 [place] [facility] [id number] Layla Kai [id number] Layla Kai 01/25/2024 2 [place] [facility] Layla Kai [id number] Layla Kai Notes Date Note Type Note Provider Name and Address Organization Details Recorded Time 05/02/2022 text/html CongestionReport ed bypatient.Notes:Pt reports mild cough for about 2 weeks that was improved. Within the last 48 hours, developed sweats, chills, congestion, body aches, worsening cough all the sudden. Reports no SOB, wheezing, n/v/d. No known exposures. LAVERN Vyas [address] [place], [address], [place] - [facility] 05/02/2022 13:05:44 01/25/2024 text/html Sinus Complaints UCReported bypatient.Notes:43 y.o female pt presents with congestion, sore throat x 3 days. Pt denies chest pain or SOB. LAVERN LARIOS [address] [place], [address], PA - [facility] 01/25/2024 13:17:49 OBGyn Episode No OBEpisode recorded.
--- OUTSIDE RECORDS SUMMARY | 2024-07-26 16:52 | XMS_ITS | Clinical Summary ---
Author Organization [facility] Address [address] [place] [address] Care Team Providers Care Maintenance Manager Name Role Phone Natalie Blevins Primary Care Provider [phone] Allergies Active Allergy Reactions Criticality Noted Date Comments Pepper (Genus Capsicum) Nausea 04/26/2023 Red pepper causes severe GI upset, nausea, vomiting and diarrhea Medications loratadine (CLARITIN) 10 mg tablet Take 10 mg by mouth once a day. Active amitriptyline (ELAVIL) 10 mg tablet Take 10 mg by mouth nightly. Active fluticasone propionate (FLONASE) 50 mcg/actuation nasal spray Administer 1 spray into each nostril once a day. Active topiramate (TOPAMAX) 50 mg tablet Take 50 mg by mouth once a day. Active azelastine (ASTELIN) 137 mcg (0.1 %) nasal sprayIndications: Seasonal allergic rhinitis due to pollen Administer 2 sprays into each nostril 2 times a day. 30 mL 5 3 Active fremanezumab-vfrm (AJOVY AUTOINJECTOR SUBCUTANEO) Inject under the skin. Active predniSONE (DELTASONE) 20 mg tabletIndications :Adverse effect of drug, subsequent encounter Take 1 tablet (20 mg total) by mouth once a day. prednisone 40 mg 11 hours, then 7 hours and 3 hours prior to vaccine 6 tablet 4 Active levocetirizine (XYZAL) 5 mg tabletIndications :Adverse effect of drug, subsequent encounter,Seasona l allergic rhinitis due to pollen Take 1 tablet (5 mg total) by mouth every evening. 30 tablet 5 4 Active Active Problems Problem Noted Date Diagnosed Date Adverse reaction to vaccine, sequela 04/26/2023 Seasonal allergic rhinitis due to pollen 023 Encounters Date Type Department Care Team Description 07/09/2024 myChart Message [facility] [address] Allergy/Immunology [address] [place] [address] Kylee Hernandez DO Allergy Shots from Last 3 Months Social History Tobacco Use Types Packs/Day Years Used Date Smoking Tobacco: Never Smokeless Tobacco: Never Tobacco Cessation:Counseling Given: Not Answered Alcohol Use Standard Drinks/Week Comments Not Currently 0 (1 standard drink = 0.6 oz pur e alcohol) Comments Unknown Sex and Gender Information Value Date Recorded Sex Assigned at Female 01/31/2024 2:43 PM EDT Legal Sex Female 7:15 AM EDT Gender Identity Female 01/31/2024 2:43 PM EDT Sexual Orientation Straight 01/31/2024 2: 43 PM EDT Last Filed Vital Signs Vital Sign Reading Time Taken Comments Blood Pressure 102/66 02/01/2024 1:08 PM EDT Pulse 85 02/01/2024 1:08 PM EDT Temperature - - Respiratory Rate 16 04/26/2023 10:11 AM EST Oxygen Saturation 99% 02/01/2024 1:08 PM EDT Inhaled Oxygen Concentration - - Weight 57.7 kg (127 lb 3.2 oz) 02/01/2024 1:08 P M EDT Height - - Body Mass Index - - Plan of Treatment Upcoming Encounters Date Type Department Care Team (Late st Contact Info) Description 02/06/2025 10:00 AM EDT Office Visit [facility] [address] Allergy/Immunology [address] [place] [address] Kylee Hernandez DO [address] [place] [address] Health Maintenance Due Date Last Done Comments Cervical Cancer Screening 1980 HIV Screening 1980 HPV and Pap Smear 1980 Hepatitis C Screening 1980 Pap Smear 1980 Varicella Vaccines (1 of 2 - 13+ 2-dose series) 1993 Hepatitis B Vaccines (1 of 3 - 19+ 3-dose series) 09/19/1999 Mammogram 2020 COVID-19 Vaccine (2023- season) 2024 04/28/2023, 04/02/2022, 11/06/2021, Additional history exists Influenza Vaccine (#1) 2024 , 02/12/2022, 02/11/2020, Additional history exists Alcohol/Substance Use Screening 05/16/2024 Depression Screening and Follow-Up 05/16/2024 Social Drivers of Health Annual Screening 05/16/2024 DTaP,Tdap,and Td Vaccines (2 - Td or Tdap) 04/12/2026 04/12/2016 RSV Vaccine (60+ years old and patients) (1 - 1-dose 75+ series) 09/19/2055 Pneumococcal Vaccine: Pediatric (0-5 Years) and At-Risk Patients (6-50 Years) Aged Out No longer eligible based on patient's age to complete [place] [id number] [employer] [facility] Care Teams Maintenance Manager Relationship Specialty Start Date End Date Natalie Blevins [address] [facility] [place] [address] PCP - General Family Medicine 03/04/23
--- OUTSIDE RECORDS SUMMARY | 2024-07-26 16:52 | XMS_ITS | Referral Summary ---
Author Organization [facility] Address [address] [place] [address] Care Team Providers Care Wide Area Network Administrator Name Role Phone Natalie Blevins Primary Care Provider [phone] Encounters Date Type Department Care Team Description 07/09/2024 [place] Message [facility] 198 [facility] Allergy/Immunology [address] [place] [address] Kylee Hernandez, Allergy Shots from Last 3 Months Allergies Active Allergy Reactions Criticality Noted Date [...] Seasonal allergic rhinitis due to pollen 023 Social History Tobacco Use Types Packs/Day Years [...] Description 02/06/2025 10:00 AM EDT Office Visit [address] Allergy/Immunology [address] [place] [address] Kylee Hernandez DO [address] [place], [place] [phone] [place] [id number] [place] [address] [employer] [facility] Care Teams Wide Area Network Administrator Relationship Specialty Start Date End Date Natalie Blevins [address] [place] [address] PCP - General Family Medicine 03/04/23
[2024-07-26 17:37] VITALS: BP 112/73; PULSE 76; RESP 16; TEMP 36.7; O2SAT 96
== END 2024-07-26 17:37 | disposition home or self-care (01) ==
PROVIDERS: Physician Assistant; Emergency Provider Emergency Medicine; PCP Family Medicine
DX: N20.0 Calculus of kidney (principal); R10.31 Right lower quadrant pain; R19.7 Diarrhea, unspecified; R10.813 Right lower quadrant abdominal tenderness; R10.2 Pelvic and perineal pain; R11.0 Nausea; Z79.899 Other long term (current) drug therapy
CPT/HCPCS: 36415; 74177; 76856; 80053; 81003; 81025; 83690; 84702; 85025; 93975; 96361; 96374; 99284; J1885; Q9967

== ENCOUNTER → 2024-07-26 14:00 | Outpatient (BNV) | payer OTHER, SELFPAY | PROVIDERS: Emergency Provider Emergency Medicine; PCP Family Medicine; Visit Provider Radiology Diagnostic Radiology | DX: R10.11 Right upper quadrant pain (principal) | CPT/HCPCS: 74177; 93975 ==

== ENCOUNTER 2024-08-20 15:53 | Outpatient (REF) | payer OTHER, SELFPAY ==
[2024-08-20] MEDS: gadobutroL 7.5 ML VIAL IVPUSH (17:00)
--- OUTSIDE RECORDS SUMMARY | 2024-08-20 18:31 | XMS_ITS | Data Portability ---
Author Organization [facility] Pal[facility], [address] Address [address] [place] [address] Assessment No assessment recorded. Plan of Treatment Reminders Order Date Submit Date Provider Last Modified By Organization Details Last Modified Time Details Appointments None recorded. Lab rapid strep group A, throat 2023 024 [email or web address] [facility] [address] [place], [address], 4 10:42:46 SARS CoV 2 (COVID-19) Ag, QL, IA, upper respiratory specimen 2023 024 [email or web address] [facility] [address] [place], [address], 4 10:42:48 rapid flu (A+B) 2021 022 [email or web address] [facility], [address] [place], [address], 2 12:08:31 Referral None recorded. Procedures None recorded. Surgeries None recorded. Imaging None recorded. Medication Orders Paxlovid 300 mg (150 mg x 2)-100 mg tablets in a dose pack 2023 024 [facility]armacy #1230, [address], [place], [address], 4 10:42:46 benzonatate 100 mg capsule 122021 [facility] #1230, [address] [place], [address], 4 09:49:26 Tamiflu 75 mg capsule 2021 [facility], [address] [place], [address], 4 09:49:35 albuterol sulfate HFA 90 mcg/actuati on aerosol inhaler [address]/Pharmacy #1230, [address] [place], [address], 09:54:24 Patient TargetsNo targets recorded. Patient Instructions Encounter Date Encounter Id Patient Instructions Last Modified By Organization Details Last Modified Time 05/02/2022 [id number] influenza (flu): care instructions [email or web address] Not available 05/02/2022 12:08:31 Go to the [facility] emergency department if you develop ANY new [...] without a prescription. Drink plenty of water. [email or web address] Not available 05/02/2022 13:05:18 01/25/2024 [id number] Acute Sinusitis: Care Instructions [email or web address] Not available 01/25/2024 10:42:44 You have been [...] this over a decongestant. 3. Saline Nasal [facility] 4. Salt Water Gargles. I would be [...] AND HUMAN SERVICES Thank you for visiting [facility] today, please feel free to call our office you have any questions or concerns. [email or web address] Not available 01/25/2024 10:42:42 Reason for Referral None Reported. Results Created Date Observation Date Name Description Value Unit Range Abnormal Flag Note LastModifiedBy Organization Detail LastModifiedTime 05/02/20 22 05/02/2022 rapid flu (A+B) Unknown Analyte Normal = Negati ve Not Available [address] [place], [address], 05/02/2022 11:39:58 05/02/20 22 05/02/2022 rapid flu (A+B) Unknown Analyte positi ve Not Available [address] [place] [address] [place], [address], 05/02/2022 11:39:58 05/02/20 22 05/02/2022 rapid flu (A+B) Unknown Analyte Normal = Negati ve Not Available [address] [place] [address] [place], [address], 05/02/2022 11:39:58 05/02/20 22 05/02/2022 rapid flu (A+B) Unknown Analyte negati ve Not Available [address] [place] [address] [place], [address], 05/02/2022 11:39:58 01/25/20 24 01/25/2024 SARS CoV 2 (COVI D-19) Ag, QL, IA, upper respi rator y speci men Unknown Analyte positi ve Not Available [address] [place], [place] [address], [address], 01/25/2024 09:56:55 01/25/2001/25/2024 SARS CoV 2 (COVI D-19) Ag, QL, IA, upper respi rator y speci men Unknown Analyte yes Not Available [address] [place], [address], 01/25/2024 09:56:55 01/25/2001/25/2024 rapid strep group A, throa t Unknown Analyte negati ve Not Available [address] [place], [address], 01/25/2024 09:56:49 01/25/2001/25/2024 rapid strep group A, throa t Unknown Analyte yes Not Available [address] [facility] [address] [place], [address], 01/25/2024 09:56:49 Result Notes None recorded. Problems Name Problem SNOMED Code Status Onset Date Resolution Date Notes Provider Name and Address Organization Details Recorded Time Migraine 89318034 Active SAMMI DEPINTO null, [place] - [facility] 2 11:37:59 Goiter 2025622 Active 022 SAMMI DEPINTO null, [place] - [facility] 2 11:38:32 Depressive disorder 16288520 Active Pari [place] null, [place] - [facility] 4 09:50:43 [...] Name and Address Organization Details Recorded Time 221069 tree and shrub pollen environme nt,medica tion Not available Not available Not available 01/25/2024 36[address] UNK Pari kyle [place] - [facility] [...] Updated DateTime 2 165.1 cm 19 kg/m2 97674.5 3 g 4 98 % 98 % [...] Updated DateTime 4 165.1 cm 19.1 kg/m2 39240.1 2 g 97.9 [degF] 100 % 100 % 106 /min 14 /min 100 mm[Hg] 67 mm[Hg] Pari [place] [facility] 4 09:56:25 Social History [...] SNOMED-CT Code Diagnosis ICD10 Code Diagnosis Note [id number] [address] [place] [address] 09/13/2021 09:08:24 09/13/2021 10:35:40 [id number] [facility] Vyas [address] [place] [address] 05/02/2022 10:07:30 05/02/2022 12:19:56 Influenza caused by Influenza A virus 355951091 J09.X2 [id number] [facility] LARIOS [address] [place] [address] 01/25/2024 09:26:14 01/25/2024 10:45:01 COVID-19 387527111 U07.1 Health Concerns Section Related Observation LastModified by Organization Detai ls LastModified Time None Recorded Concern Status LastModified by Organization Details LastModified Time None Recorded Advance Directives Directive None Recorded Payers Encounter Date Sequence Insurance Name Policy Number Policy Roman Covered Member ID Roman Member ID Guarantor Name 09/13/2021 1 [place] [id number] Layla Kai [id number] Layla Kai 05/02/2022 1 [place] [id number] Layla Kai [id number] Layla Kai 01/25/2024 1 [place] [facility] BLUE [facility] [id number] Layla Kai [id number] Layla Kai 01/25/2024 2 [place] [facility] Layla Kai [id number] Layla Kai Notes Date Note Type Note Provider Name and Address Organization Details Recorded Time 05/02/2022 text/html CongestionReport ed bypatient.Notes:Pt reports mild cough for about 2 weeks that was improved. Within the last 48 hours, developed sweats, chills, congestion, body aches, worsening cough all the sudden. Reports no SOB, wheezing, n/v/d. No known exposures. LAVERN Vyas [address] [place], [address], [place] - [facility] 05/02/2022 13:05:44 01/25/2024 text/html Sinus Complaints UCReported bypatient.Notes:43 y.o female pt presents with congestion, sore throat x 3 days. Pt denies chest pain or SOB. LAVERN LARIOS [address] [place], [address], [place] - [facility] 01/25/2024 13:17:49 OBGyn Episode No OBEpisode recorded.
--- OUTSIDE RECORDS SUMMARY | 2024-08-20 18:32 | XMS_ITS | Clinical Summary ---
Author Organization [facility] Address [address] [place] [phone] Phone Care Team Providers Care Software Developer Manager Name Role Phone Natalie Blevins MD Primary Care Provider Allergies Active Allergy Reactions Criticality Noted Date Comments Pepper (Genus Capsicum) Nausea Only 04/26/2023 Red pepper causes severe GI upset, nausea, vomiting and diarrhea Medications Medication Sig Dispensed Refills Start Date End Date Status loratadine (CLARITIN) 10 mg tablet Take 10 mg by mouth. 03/14/2020 Active mv,calcium,min/i quan/folic/vitK (MULTI FOR HER ORAL) Orally Active albuterol 90 mcg/actuation inhaler Inhale 2 puffs every 6 hours by inhalation route. 05/02/2022 Active azelastine (ASTELIN) 137 mcg (0.1 %) nasal spray 2 sprays by Nasal route. 04/26/2023 Active busPIRone (BUSPAR) 7.5 MG tablet Take 7.5 mg by mouth. 03/09/2022 Active doxycycline hyclate (VIBRAMYCIN) 50 MG capsule 60 each, TAKE 1 CAPSULE BY MOUTH TWICE A DAY, 0 Refills, 07/01/21 20:31:00 EST, Partial fill upon patient request if the prescription is for a schedule II opioid drug. 07/01/2021 Active fluticasone propionate (FLONASE) 50 mcg/actuation nasal spray 1 spray by Nasal route. Active SUMAtriptan (IMITREX) 25 MG tablet Orally Active amitriptyline (ELAVIL) 10 MG tablet TAKE 1 TABLET (10 MG TOTAL) BY MOUTH NIGHTLY AT BEDTIME. TO CLARIFY THE DOSE SHOULD BE 10 MG NIGHTLY 90 tablet 1 04/06/2024 Active topiramate (TOPAMAX) 50 MG tablet TAKE 1 TABLET (50 MG TOTAL) BY MOUTH DAILY. 90 tablet 1 04/06/2024 Active SUMAtriptan (TOSYMRA) 10 mg/actuation [place] INSTILL 10 MG BY NASAL ROUTE DAILY NEEDED. INDICATIONS: BRAND NAME MEDICALLY NECESSARY 6 each 5 05/14/2024 Active fremanezumab-vfr m (AJOVY AUTOINJECTOR) 225 mg/1.5 mL AtInIndications: Migraine without aura and without status migrainosus, not intractable INJECT 225 MG UNDER THE SKIN EVERY 28 DAYS. 1.5 mL 5 08/16/2024 Active fremanezumab-vfr m (AJOVY AUTOINJECTOR) 225 mg/1.5 mL AtIn INJECT 225 MG UNDER THE SKIN EVERY 28 DAYS. 1.5 mL 5 01/31/2024 Discontinued Active Problems Problem Noted Date Diagnosed Date Nontoxic multinodular goiter 08/17/2021 Encounters Date Type Department Care Team Description 08/14/2024 Refill [facility] Neurology at [address] [address] Andre Deng MD Medication Refill 07/03/2024 Refill [facility] Neurology at [address] [address] Andre Deng MD Medication Refill from Last 3 Months Social History Tobacco Use Types Packs/Day Years Used Date Smoking Tobacco: Never Smokeless Tobacco: Never Tobacco Cessation:Counseling Given: Not Answered Education Answer Date Recorded Are you interested in more education? Not on enrique e 09/11/2022 Are you concerned about learning? Not on file 09/11/2022 No 09/11/2022 No 09/11/2022 Digital Access Answer Date Recorded No 10/12/2022 No 10/12/2022 Reliable internet access at home? Not on file 10/12/2022 Device with a working camera? Not on file Sex and Gender Information Value Date Recorded Sex Assigned at Not on file Gender Identity Not on file Sexual Orientation Not on file Last Filed Vital Signs Vital Sign Reading Time Taken Comments Blood Pressure 92/54 02/20/2024 1:05 PM EDT Pulse 93 02/20/2024 1:05 PM EDT Temperature 36.7 ??C (98 ??F) 06/04/2023 2:51 PM EST Respiratory Rate 20 06/04/2023 2:51 PM EST Oxygen Saturation 100% 02/20/2024 1:05 PM EDT Inhaled Oxygen Concentration - - Weight 57.7 kg (127 lb 3.2 oz) 02/20/2024 1:05 P M EDT Height 165.1 cm (5' 5 ) 02/20/2024 1:05 PM EDT Body Mass Index 21.17 02/20/2024 1:05 PM EDT Plan of Treatment Upcoming Encounters Date Type Department Care Team (Late st Contact Info) Description 02/20/2025 11:30 AM EDT Office Visit [facility] Neurology at [address] [address] Rosanne Julian PA-C [address] [place] [address] Department of Neurology, [place] [address] [email or web address] Health Maintenance Due Date Last Done Comments HEPATITIS C SCREENING 1998 HIV ONE-TIME SCREENING (18-65 YEARS) 1998 PAP SMEAR 2001 MAMMOGRAM 01/29/2023 01/29/2021, 10/05/2018 COVID-19 VACCINE ( season) 2024 04/28/2023, 04/02/2022, 11/06/2021, Additional history exists DEPRESSION SCREENING 02/19/2025 02/20/2024 Adult Td,Tdap Booster 04/12/2026 04/12/2016 HEPATITIS A VACCINES Aged Out 07/29/2006 No long er eligible based on patient's age to complete this topic INFLUENZA VACCINE Completed 02/16/2024, , 02/12/2022, Additional history exists SMOKING STATUS SCREENING (Once After 26 Yrs) Completed 02/20/2024 HIB VACCINES Aged Out No longer eligi ble based on patient's age to complete this topic MENINGOCOCCAL VACCINES (ACWY) Aged Out No longer eligible based on patient's age to complete this topic PNEUMOCOCCAL VACCINES (0-49 years) Aged Out No longer eligible based on patient's age to complete this topic Medical Devices Not on file Procedures Procedure Name Priority Date/Time Associated Diagnosis Comments BI MAMMOGRAM OUTSIDE (NO INTERPRETATION) Routine 01/29/2021 12:00 AM EDT from Last 3 Months or Most Recently Relevant to Health Maintenance Results * Mammogram Outside (No Interpretation) (01/29/2021 12:00 AM EDT) Narrative BIGG_KARENH - 09/04/2021 12:18 PM EDT This study is for PACS storage only and not for interpretation. Andre Deng MD IMG OUTSIDE IMAGING W/OUT INTERPRETATION [facility] from Last 3 Months or Most Recently Relevant to Health Maintenance Care Teams Software Developer Manager Relationship Specialty Start Date End Date Natalie Blevins MD [address] [place] [address] PCP - General Internal Medicine 12/01/23 Additional Source Comments The information contained in this document represents components of the legal health record. It is not the complete legal health record.[facility]
--- OUTSIDE RECORDS SUMMARY | 2024-08-20 18:32 | XMS_ITS | Patient Health Record ---
Author Organization [facility] Address [address] [place] [address] Care Team Providers Care Portfolio Architect Name Role Phone NICOLASA ROJAS MD Primary Care Provider Dee Dasilva Unavailable [phone] Reason For Referral No Information Medications Medication SIG (Take, Route, Frequency, Duration) Notes Start Date End Date Status Multi For Her Orally Active Topamax 50 MG 1 tablet at bedtime Orally Once a day Active SUMAtriptan Succinate 25 MG Orally Active Problems Problem Type SNOMED Code ICD Code Onset Dates Problem Status W/U Status Risk Notes Problem Cyst of thyroid (88673113) Cyst of thyroid (246.2) Active confirmed Problem Migraine (disorder) (98335589) Migraine, unspecified without mention of intractable migraine without mention of status migrainosus (346.90) Active confirmed Major Problem Abnormal vaginal bleeding (496300561) Other disorder of menstruation and other abnormal bleeding from female genital tract (626.8) Active confirmed Diag Plan Of Treatment No Information Insurance Providers Payer Name Payer Address Payer Phone Subscriber Number Group Number Insured Name Patient Relationship to Insured Coverage Start Date Coverage End Date [employer] [address] [address] [facility] [place] [address] [id number] DOROTHY MODI Self - patient is the insured Medical (General) History Medical History History ICD Code Other disorder of menstruati on and other abnormal bleeding from female genital tract Migraine, unspecified withou t mention of intractable migraine without mention of status migrainosus Cyst of thyroid Surgical History Surgery Date(Month/Year) extraction wisdom teeth tonsilectomy right breast biopsy, ?fibroadenoma Thyroid biospies x 2, benign 2013
--- OUTSIDE RECORDS SUMMARY | 2024-08-20 18:32 | XMS_ITS | Encounter Summary ---
Author Organization [facility] Address [address] [place] [address] Phone Care Team Providers Care Equipment Service Engineer Name Role Phone Ania Noe NP Primary Care Provider [phone] Natalie Blevins MD Primary Care Provider Encounter Details Date Type Department Care Team (Late Contact Info) Description 06/16/2023 Telephone [facility] Specialties [address] [place] [address] Corbin Beckford [address] [place] [address] 5th [place] [address] [email or web address] Social History Tobacco Use Types Packs/Day [...] on file Sexual Orientation Not on file documented as of this encounter Plan of Treatment Upcoming Encounters Date Type Department Care Team (Late st Contact Info) Description 02/20/2025 11:30 AM EDT Office Visit [facility] Neurology at [address] [address] Rosanne Julian PA-C [address] Department of Neurology, [place] [address] [email or web address] documented as of this encounter Visit Diagnoses Not on filedocumented in this encounter Care Teams Equipment Service Engineer Relationship Specialty Start Date End Date Anai Noe NP [address] [place] [address] PCP - General 07/02/21 11/30/23 Natalie Blevins MD [address] [place] [address] PCP - General Internal Medicine 12/01/23 documented as of this encounter Additional Source Comments The information contained in this document represents components of the legal health record. It is not the complete legal health record.[facility]
--- OUTSIDE RECORDS SUMMARY | 2024-08-20 18:32 | XMS_ITS | Encounter Summary ---
Author Organization [facility] Address [address] [place] [address] Phone Care Team Providers Care Stripping Shovel Operator Name Role Phone Natalie Blevins MD Primary Care Provider Reason for Referral * Medication Prior Authorization - Closed Specialty Diagnoses / Procedures Referred By Contnoel t Referred To Contact Diagnoses Migraine without aura and without status migrainosus, not intractable Andre Deng MD [address] [place] [address] Department of Neurology, [place] [address] Email: [email or web address] Referral ID Status Reason Start Date Expiration Date Visits Re quested Visits Authorized [id number] Closed 1 1 Reason for Visit * Reason Comments Medication Refill Encounter Details Date Type Department Care Team (Late st Contact Info) Description 08/14/2024 Refill [facility] Neurology at [address] [address] Andre Deng MD [address] [place] [address] Department of Neurology, [place] [address] [email or web address] [email or web address] Refill Social History Tobacco Use Types Packs/Day Years [...] Description 02/20/2025 11:30 AM EDT Office Visit [facility] Neurology at [place] [address] [facility] [address] [place] [address] Rosanne Julian PA-C [address] [facility] [address] Department of Neurology, [place] [address] [email or web address] documented as of this encounter Visit Diagnoses Diagnosis Migraine without aura and without status migrainosus, not intractable- Primary documented in this encounter Additional Health Concerns Assessment Noted Time PHQ-2 Depression Total Score: 0 02/20/20 24 1:05 PM EDT documented as of this encounter Care Teams Stripping Shovel Operator Relationship Specialty Start Date End Date Natalie Blevins MD [address] [place] [address] PCP - General Internal Medicine 12/01/23 documented as of this encounter Additional Source Comments The information contained in this document represents components of the legal health record. It is not the complete legal health record.[facility]
--- OUTSIDE RECORDS SUMMARY | 2024-08-20 18:32 | XMS_ITS | Clinical Summary ---
Author Organization [facility] Address [address] [place] [address] Care Team Providers Care Drawing Machine Operator Name Role Phone Natalie Blevins Primary Care Provider [phone] Allergies Active Allergy Reactions Criticality Noted Date [...] total) by mouth every evening. 30 tablet 11 5 Active Active Problems Problem Noted Date Diagnosed Date Adverse reaction to vaccine, sequela 04/26/2023 Seasonal allergic rhinitis due to pollen 023 Encounters Date Type Department Care Team Description 08/06/2024 Refill [facility] [address] [facility] Allergy/Immunology [address] [place] [address] Kylee Hernandez DO Adverse effect of drug, subsequent encounter; Seasonal allergic rhinitis due to pollen 07/09/2024 myChart Message [facility] [address] [facility] Allergy/Immunology [address] [place] [address] Kylee Hernandez DO Allergy Shots from Last [...] Description 02/06/2025 10:00 AM EDT Office Visit [facility] [address] [facility] Allergy/Immunology [address] [place] [address] Kylee Hernandez DO [address] [place] [address] Health Maintenance Due Date Last Done Comments Cervical Cancer Screening 1980 HIV Screening 1980 HPV and Pap Smear 1980 Hepatitis C Screening 1980 Pap Smear 1980 Varicella Vaccines (1 of 2 - 13+ 2-dose series) 1993 Hepatitis B Vaccines (1 of 3 - 19+ 3-dose series) 09/19/1999 Mammogram 2020 COVID-19 Vaccine ( season) 2024 04/28/2023, 04/02/2022, 11/06/2021, Additional history exists Alcohol/Substance Use Screening 05/16/2024 Depression Screening and Follow-Up 05/16/2024 Social Drivers of Health Annual Screening 05/16/2024 Influenza Vaccine (Season Ended) 2025 02/15/2023, 02/12/2022, 02/11/2020, Additional history exists DTaP,Tdap,and Td Vaccines (2 - Td or Tdap) 04/12/2026 04/12/2016 RSV Vaccine (60+ years old and patients) (1 - 1-dose 75+ series) 09/19/2055 Pneumococcal Vaccine: Pediatric (0-5 Years) and At-Risk Patients (6-50 Years) Aged Out No longer eligible based on patient's age to complete this topic Insurance [id number] [employer] [facility] Care Teams Drawing Machine Operator Relationship Specialty Start Date End Date Natalie Blevins [address] [place] [address] PCP - General Family Medicine 03/04/23
--- OUTSIDE RECORDS SUMMARY | 2024-08-20 18:32 | XMS_ITS | Encounter Summary ---
Author Organization [facility] Address [address] [place] [phone] Phone Care Team Providers Care Marketing Project Coordinator Name Role Phone Natalie Blevins MD Primary Care Provider Reason for Visit * Reason Comments Medication Refill Encounter Details Date Type Department Care Team (Late Contact Info) Description 07/03/2024 Refill [facility] Neurology at [address] [address] Andre Deng MD [address] [place] [address] Department of Neurology, [place] [address] [email or web address] Medication Refill Social History Tobacco Use [...] Description 02/20/2025 11:30 AM EDT Office Visit [facility] Neurology at [place] [address] [place] [address] Rosanne Julian PA-C [address] [facility] [address] Department of Neurology, [place] [address] [email or web address] documented as of this encounter Visit Diagnoses Not on filedocumented in this encounter Additional Health Concerns Assessment Noted Time PHQ-2 Depression Total Score: 0 02/20/20 24 1:05 PM EDT documented as of this encounter Care Teams Marketing Project Coordinator Relationship Specialty Start Date End Date Natalie Blevins MD [address] [place] [address] PCP - General Internal Medicine 12/01/23 documented as of this encounter Additional Source Comments The information contained in this document represents components of the legal health record. It is not the complete legal health record.[facility]
--- OUTSIDE RECORDS SUMMARY | 2024-08-20 18:32 | XMS_ITS | Referral Summary ---
Author Organization [facility] Address [address] [place] [address] Care Team Providers Care Head Cook Name Role Phone Natalie Blevins Primary Care Provider [phone] Encounters Date Type Department Care Team Description 08/06/2024 Refill [facility] 198 [facility] Allergy/Immunology [address] [place] [address] Kylee Hernandez, Adverse effect of drug, subsequent encounter; Seasonal allergic rhinitis due to pollen 07/09/2024 myChart Message [facility] 198 [facility] Allergy/Immunology [address] [place] [address] Kylee Hernandez DO Allergy Shots from Last 3 Months Allergies [...] Description 02/06/2025 10:00 AM EDT Office Visit [address] Allergy/Immunology [address] [place] [address] Kylee Hernandez, [address] [place] [address] [place] [address] [place] [employer] [facility] Care Teams Head Cook Relationship Specialty Start Date End Date Natalie Blevins [address] [place] [address] PCP - General Family Medicine 03/04/23
== END 2024-08-20 15:54 | disposition home or self-care (01) ==
LOC: HO.MRI 15:53
PROVIDERS: PCP Family Medicine; Visit Provider Nurse Practitioner Family
DX: R92.8 Other abnormal and inconclusive findings on diagnostic imaging of breast (principal)
CPT/HCPCS: 77049; A9585

== ENCOUNTER → 2024-08-20 16:15 | Outpatient (BNV) | payer OTHER, SELFPAY | PROVIDERS: PCP Family Medicine; Visit Provider Internal Medicine | DX: Z80.3 Family history of malignant neoplasm of breast (principal) | CPT/HCPCS: 77049 ==

== ENCOUNTER 2024-09-24 14:56 | Outpatient (AMB) | payer OTHER, SELFPAY ==
--- NOTE | 2024-09-24 14:58 | A.OFFVIS_ITS ---
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 Recently, she was in the ED -07/26/24, with right sided abdominal pain and a CT scan with IV contrast revealed an incidental punctate calculus in the kidney while also noting significant stool retention in the colon. She states she uses MiraLAX. I have discussed diet modification to decrease risk of forming more kidney stones. I have discussed low oxalate diet and specific foods to avoid including certain green leafy vegetables, chocalate, nuts, tea, beets, rubarb; low sodium, decreased use of animal protein and the importance of hydration drinking up to 2-2.5 liters of fluids and use of adding lemon to water to increase citrate in the diet. A pamphlet is also provided today. Results - Imaging/CT Scan Abd/pelvis with IV Contrast-07/26/24: Noted a tiny punctate calculus in the kidney and a large amount of stool in the colon. - Urinalysis today is negative for blood, or leukocytes. 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 Review of Systems Const All systems reviewed & are unremarkable except as noted in HPI and below Reports no additional complaints Eyes Reports no additional complaints ENT Reports no additional complaints Card Reports no additional complaints Resp Reports no additional complaints GI Reports no additional complaints Reports as per HPI Musc Reports no additional complaints Skin/Breast Reports system reviewed and no additional complaints, except as documented Neuro Reports no additional complaints Psych Reports no additional complaints Endo Reports no additional complaints Heriberto/Lymph Reports no additional complaints Aller/Immun Reports no additional complaints Physical Exam Const General: cooperative, healthy appearing and no acute distress Orientation/consciousness: patient oriented x3 HEENT Head: Yes normal to inspection, Yes normocephalic and Yes atraumatic Eyes Conjunctivae: conjunctivae normal Neck Neck: Yes normal visual inspection and Yes trachea midline Chest Chest palpation & inspection: normal inspection of the chest Resp Effort & Inspection: normal respiratory effort GI Inspection: Yes normal to inspection Palpation (GI): Soft to palpation Neuro General: patient oriented x3 Psych Appearance: grossly normal Results Reviewed Results Reviewed: Date of Service: 07/26/24 EXAMINATION: CT ABDOMEN PELVIS WITH IV CONTRAST HISTORY: RLQ pain COMPARISON: There are no prior studies for comparison. TECHNIQUE: CT scan of the abdomen and pelvis was performed following administration of 85 mL Omnipaque 350 using standard departmental protocol. Coronal and sagittal reformatted images were generated and reviewed. Oral contrast material was not administered at the request of the referring physician. This CT exam was performed with one or more of the following dose reduction techniques: automated exposure control, adjustment of the mA and/or kV according to patient size, use of iterative reconstruction technique. DLP: 397 mGy-cm FINDINGS: LOWER CHEST: The visualized lung bases are clear. There is no pleural effusion. CARDIOVASCULATURE: The heart is normal in size. There is no pericardial effusion. LIVER: The liver is normal in size and contour. No liver mass is identified. The hepatic and portal veins are patent. GALLBLADDER / BILE DUCTS: The gallbladder is unremarkable. There is no intra or extrahepatic biliary ductal dilatation. SPLEEN: The spleen is normal in size. No focal splenic lesion is identified. PANCREAS: The pancreas is unremarkable in appearance. ADRENAL GLANDS: Within normal limits. KIDNEYS/RETROPERITONEUM: There is a punctate nonobstructing calculus at the lower pole of the right kidney. There is no hydronephrosis. The left kidney is unremarkable. No renal masses are identified. LYMPH NODES: No abdominal or pelvic lymphadenopathy. VASCULATURE: The abdominal aorta is normal in caliber. MESENTERY/PERITONEUM: No free fluid. No masses. There is no free intraperitoneal gas. STOMACH: The stomach is collapsed, limiting evaluation. SMALL BOWEL: The small bowel is normal in caliber. COLON: There is a large amount of stool throughout the colon. APPENDIX: Normal. URINARY BLADDER/PELVIC ORGANS: The urinary bladder is unremarkable. The uterus and ovaries are unremarkable. BONES / SOFT TISSUES: No suspicious bony or soft tissue abnormalities. IMPRESSION: 1. Large amount of stool throughout the colon. 2. A normal appendix is visualized. 3. Punctate right lower pole renal calculus. Assessment & Plan Assessment & Plan (1) Kidney stone: Code(s): N20.0 - Calculus of kidney Category: Medical Plan Plan - Drink plenty of water each day to help prevent kidney stones. - Add lemon juice to your water regularly to help increase urine citrate levels. - Low sodium intake - We will schedule a renal ultrasound in three months for further assessment. Orders: Orders US renal BI 3 Months N20.0 - Calculus of kidney Patient Instructions: The patient had an opportunity to ask questions regarding treatment plan. The patient expressed understanding and agreement with the above treatment plan. The patient is aware they should contact our office by phone for worsening of their current condition or the appearance of new symptoms. Compliance is encouraged with any medications and followup testing that is ordered. It is a privilege to be allowed the opportunity to participate in the urologic care of your patient. If you have any questions or concerns regarding treatment for the above conditions please do not hesitate to contact me. The office telephone contact is [phone]. This note is constructed in part using voice recognition software. While every effort has been made to ensure accuracy inspecting machine adjuster errors may have been included. Yours sincerely, Rupa Wilson MD Scribe Plan - Not visible on output: Patient was informed and verbally consented to the use of an ambient scribe for clinic note documentation during this visit. Coding Level of Care Code New Pt Level 3 (16536) Diagnoses Kidney stone N20.0
--- OUTSIDE RECORDS SUMMARY | 2024-09-24 14:59 | XMS_ITS | Data Portability ---
Author Organization [facility], [address] Address [address] [place] [address] Assessment No assessment recorded. Plan of Treatment Reminders Order Date Submit Date Provider Last Modified By Organization Details Last Modified Time Details Appointments None recorded. Lab rapid strep group A, throat 2023 024 [email or web address] [facility] [address] [place], [address], 4 10:42:46 SARS CoV 2 (COVID-19) Ag, QL, IA, upper respiratory specimen 2023 024 [email or web address] [facility], [address] [place], [address], 4 10:42:48 rapid flu (A+B) 2021 022 [email or web address] [facility], [address] [place], [address], 2 12:08:31 Referral None recorded. Procedures None recorded. Surgeries None recorded. Imaging None recorded. Medication Orders Paxlovid 300 mg (150 mg x 2)-100 mg tablets in a dose pack 2023 024 [facility]/Pharmacy #1230, [address] [facility], [place], [address], 4 10:42:46 benzonatate 100 mg capsule 122021 [email or web address]/Pharmacy #1230, [address] [place], [address], 4 09:49:26 Tamiflu 75 mg capsule 2021 [email or web address], [address] [place], [address], 4 09:49:35 albuterol sulfate HFA 90 mcg/actuati on aerosol inhaler [address]/Pharmacy #1230, [address] [place], [address], 09:54:24 Patient TargetsNo targets recorded. Patient Instructions Encounter Date Encounter Id Patient Instructions Last Modified By Organization Details Last Modified Time 05/02/2022 [id number] influenza (flu): care instructions [email or web address] Not available 05/02/2022 12:08:31 [facility] if you develop ANY [...] without a prescription. Drink plenty of water. [email or web address] Not available 05/02/2022 13:05:18 01/25/2024 [id number] Acute Sinusitis: Care Instructions [email or web address] Not available 01/25/2024 10:42:44 You have been [...] this over a decongestant. 3. Saline Nasal [place] 4. Salt Water Gargles. I would be [...] AND HUMAN SERVICES Thank you for visiting [facility] today, please feel free to call our office you have any questions or concerns. [email or web address] Not available 01/25/2024 10:42:42 Reason for Referral None Reported. Results Created Date Observation Date Name Description Value Unit Range Abnormal Flag Note LastModifiedBy Organization Detail LastModifiedTime 05/02/20 22 05/02/2022 rapid flu (A+B) Unknown Analyte Normal = Negati ve Not Available [address] [place], [address], 05/02/2022 11:39:58 05/02/20 22 05/02/2022 rapid flu (A+B) Unknown Analyte positi ve Not Available [address] [place] [address] [place], [address], 05/02/2022 11:39:58 05/02/20 22 05/02/2022 rapid flu (A+B) Unknown Analyte Normal = Negati ve Not Available [address] [place] [address] [place], [address], 05/02/2022 11:39:58 05/02/20 22 05/02/2022 rapid flu (A+B) Unknown Analyte negati ve Not Available [address] [place] [address] [place], [address], 05/02/2022 11:39:58 01/25/20 24 01/25/2024 SARS CoV 2 (COVI D-19) Ag, QL, IA, upper respi rator y speci men Unknown Analyte positi ve Not Available [address] [place], [place] [address], [address], 01/25/2024 09:56:55 01/25/2001/25/2024 SARS CoV 2 (COVI D-19) Ag, QL, IA, upper respi rator y speci men Unknown Analyte yes Not Available [id number] [facility] [place], [address], 01/25/2024 09:56:55 01/25/2001/25/2024 rapid strep group A, throa t Unknown Analyte negati ve Not Available [address] [facility] [place], [address], 01/25/2024 09:56:49 01/25/2001/25/2024 rapid strep group A, throa t Unknown Analyte yes Not Available [address] [address] [place], [address], 01/25/2024 09:56:49 Result Notes None recorded. Problems Name Problem SNOMED Code Status Onset Date Resolution Date Notes Provider Name and Address Organization Details Recorded Time Migraine 85606440 Active SAMMI DEPINTO null, PA - [facility] 2 11:37:59 Goiter 6570128 Active 022 SAMMI DEPINTO null, PA - [facility] 2 11:38:32 Depressive disorder 30848227 Active Pari Crockett null, PA - [facility] 4 09:50:43 [...] Name and Address Organization Details Recorded Time 062017 tree and shrub pollen environme nt,medica tion Not available Not available Not available 01/25/2024 50443 UNK Pari kyle PA - [facility] [...] Updated DateTime 2 165.1 cm 19 kg/m2 25886.5 3 g 4 98 % 98 % [...] Updated DateTime 4 165.1 cm 19.1 kg/m2 25119.1 2 g 97.9 [degF] 100 % 100 % 106 /min 14 /min 100 mm[Hg] 67 mm[Hg] Pari Crockett [facility] 4 09:56:25 Social History Question Answer Notes LastModified by [email or web address] Details LastModified Time Tobacco Smoking Status Never Smoker [facility] 05/02/2022 11:42:34 Have You Had A Flu Shot This Season? No Information not available 01/25/2024 If No, Would You Like A Flu Shot Today? No Information not available 01/25/2024 Have You Recently Traveled Abroad? No Information not available 05/02/2022 Sex: Unknown Functional Status Question Answer Note LastModified by [employer] Details LastModified Time Do you use any illicit or recreational drugs? No Information not available 05/02/2022 Do you or have you ever used any other forms of tobacco or nicotine? No Information not available 05/02/2022 What is your level of alcohol consumption? None Information not available 05/02/2022 Mental Status None recorded. Family History Relationship [...] 50 mcg/0.25mL dose 07/24/2020 completed [facility] 05/02/2022 11:36:19 yellow fever live 07/29/2006 completed [...] SNOMED-CT Code Diagnosis ICD10 Code Diagnosis Note [id number] [address] [place] [address] 09/13/2021 09:08:24 09/13/2021 10:35:40 [id number] [facility] Vyas [address] [place] [address] 05/02/2022 10:07:30 05/02/2022 12:19:56 Influenza caused by Influenza A virus [id number] J09.X2 [id number] [facility] LARIOS [address] [facility] [place] [address] 01/25/2024 09:26:14 01/25/2024 10:45:01 COVID-19 254734509 U07.1 Health Concerns Section Related Observation LastModified by Organization Detai ls LastModified Time None Recorded Concern Status LastModified by Organization Details LastModified Time None Recorded Advance Directives Directive None Recorded Payers Insurance Date Sequence Insurance Name Policy Number Policy Roman Covered Member ID Roman Member ID Guarantor Name 02/09/2024 1 [employer] [place] [id number] Layla Kai [id number] Layla Kai 02/09/2024 1 [place] [id number] Layla Kai [id number] Layla Kai 02/09/2024 2 [place] [facility] Layla Kai [id number] Layla Kai 02/09/2024 1 [place] [id number] Layla Kai [id number] Layla Kai Notes Date Note Type Note Provider Name and Address Organization Details Recorded Time 05/02/2022 text/html CongestionReport ed bypatient.Notes:Pt reports mild cough for about 2 weeks that was improved. Within the last 48 hours, developed sweats, chills, congestion, body aches, worsening cough all the sudden. Reports no SOB, wheezing, n/v/d. No known exposures. LAVERN Vyas [address] [place], [address], [place] - [facility] 05/02/2022 13:05:44 01/25/2024 text/html Sinus Complaints UCReported bypatient.Notes:43 y.o female pt presents with congestion, sore throat x 3 days. Pt denies chest pain or SOB. LAVERN LARIOS [address] [place], [address], [place] - [facility] 01/25/2024 13:17:49 OBGyn Episode No OBEpisode recorded.
--- OUTSIDE RECORDS SUMMARY | 2024-09-24 15:00 | XMS_ITS | Clinical Summary ---
Author Organization Located Within [facility] Address [address] [place] [address] Phone Care Team Providers Care Workers Compensation Claims Adjuster Name Role Phone Natalie Blevins MD Primary Care Provider Allergies Active Allergy Reactions Criticality Noted Date Comments Pepper (Genus Capsicum) Nausea Only 04/26/2023 Red pepper causes severe GI upset, nausea, vomiting and diarrhea Medications loratadine (CLARITIN) 10 mg tablet Take 10 mg by mouth. 0 Active mv,calcium,min/ iron/folic/vitK (MULTI FOR HER ORAL) Orally Active albuterol 90 mcg/actuation inhaler Inhale 2 puffs every 6 hours by inhalation route. 2 Active azelastine (ASTELIN) 137 mcg (0.1 %) nasal spray 2 sprays by Nasal route. 3 Active busPIRone (BUSPAR) 7.5 MG tablet Take 7.5 mg by mouth. 2 Active doxycycline hyclate (VIBRAMYCIN) 50 MG capsule 60 each, TAKE 1 CAPSULE BY MOUTH TWICE A DAY, 0 Refills, 07/01/21 20:31:00 EST, Partial fill upon patient request if the prescription is for a schedule II opioid drug. 2 Active fluticasone propionate (FLONASE) 50 mcg/actuation nasal spray 1 spray by Nasal route. Active SUMAtriptan (IMITREX) 25 MG tablet Orally Active amitriptyline (ELAVIL) 10 MG tablet TAKE 1 TABLET (10 MG TOTAL) BY MOUTH NIGHTLY AT BEDTIME. TO CLARIFY THE DOSE SHOULD BE 10 MG NIGHTLY 90 tablet 1 4 Active topiramate (TOPAMAX) 50 MG tablet TAKE 1 TABLET (50 MG TOTAL) BY MOUTH DAILY. 90 tablet 1 4 Active SUMAtriptan (TOSYMRA) 10 mg/actuation [place] INSTILL 10 MG BY NASAL ROUTE DAILY NEEDED. INDICATIONS: BRAND NAME MEDICALLY NECESSARY 6 each 5 4 Active fremanezumab-vf rm (AJOVY AUTOINJECTOR) 225 mg/1.5 mL AtInIndications :Migraine without aura and without status migrainosus, not intractable INJECT 225 MG UNDER THE SKIN EVERY 28 DAYS. 1.5 mL 5 5 Active Active Problems Problem Noted Date Diagnosed Date Nontoxic multinodular goiter 08/17/2021 Encounters Date Type Department Care Team Description 08/14/2024 Refill [facility] Neurology at [address] [address] Andre Deng MD Medication Refill 07/03/2024 Refill [facility] Neurology at [address] [address] Andre Deng MD Medication Refill from Last [...] Recorded Sex Assigned at Not on file Legal Sex Female 1:59 PM EST Gender Identity Not on file Sexual Orientation [...] Description 02/20/2025 11:30 AM EDT Office Visit [facility] Neurology at [place] [address] [facility] [address] [place] [address] Rosanne Julian PA-C [address] [facility] [address] Department of Neurology, [place] [address] [email or web address] Health Maintenance Due Date Last Done Comments [...] (No Interpretation) (01/29/2021 12:00 AM EDT) Narrative KIRSTYH - 09/04/2021 12:18 PM EDT This study is for PACS storage only and not for interpretation. us Andre Deng MD IMG OUTSIDE IMAGING W/OUT INTE RPRETATION Final Result [id number] from Last 3 Months or Most Recently Relevant to Health Maintenance Insurance [employer] Care Teams Workers Compensation Claims Adjuster Relationship Specialty Start Date End Date Natalie Blevins MD [address] [place], [place] [address] [address] PCP - General Internal Medicine 12/01/23 Additional Source Comments The information contained in this document represents components of the legal health record. It is not the complete legal health record.[facility]
--- OUTSIDE RECORDS SUMMARY | 2024-09-24 15:00 | XMS_ITS | Encounter Summary ---
Author Organization [facility] Address [address] [place] [address] Phone Care Team Providers Care Radiographer Angiogram Name Role Phone Natalie Blevins MD Primary Care Provider Reason for Visit * Reason Comments Medication Refill Encounter Details Date Type Department Care Team (Late st Contact Info) Description 07/03/2024 Refill [facility] Neurology at [address] [address] Andre Deng MD [address] [place] [address] Department of Neurology, [place] [address] [email or web address] Medication Refill Social History Tobacco [...] Description 02/20/2025 11:30 AM EDT Office Visit [facility] [place] at [place] [address] [place] [address] Rosanne Julian PA-C [address] Department of Neurology, [place] [address] [email or web address] documented as of this encounter Visit Diagnoses Not on filedocumented in this encounter Additional Health Concerns Assessment Noted Time PHQ-2 Depression Total Score: 0 02/20/20 24 1:05 PM EDT documented as of this encounter Care Teams Radiographer Angiogram Relationship Specialty Start Date End Date Natalie Blevins MD [address] [place] [address] PCP - General Internal Medicine 12/01/23 documented as of this encounter Additional Source Comments The information contained in this document represents components of the legal health record. It is not the complete legal health record.[facility]
--- OUTSIDE RECORDS SUMMARY | 2024-09-24 15:00 | XMS_ITS | Patient Health Record ---
Author Organization [facility] Address [address] [facility] [address] [place] [address] Care Team Providers Care Sales Support Engineer Name Role Phone NICOLASA ORJAS MD Primary Care Provider Dee Dasilva Unavailable [phone] Reason For Referral No Information Medications Medication SIG (Take, Route, Frequency, Duration) Notes Start Date End Date Status Multi For Her Orally Active Topamax 50 MG 1 tablet at bedtime Orally Once a day Active SUMAtriptan Succinate 25 MG Orally Active Problems Problem Type SNOMED Code ICD Code Onset Dates Problem Status W/U Status Risk Notes Problem Cyst of thyroid (80997820) Cyst of thyroid (246.2) Active confirmed Problem Migraine (disorder) (69659670) Migraine, unspecified without mention of intractable migraine without mention of status migrainosus (346.90) Active confirmed Major Problem Abnormal vaginal bleeding (363627368) Other disorder of menstruation and other abnormal bleeding from female genital tract (626.8) Active confirmed Diag Plan Of Treatment No Information Insurance Providers Payer Name Payer Address Payer Phone Subscriber Number Group Number Insured Name Patient Relationship to Insured Coverage Start Date Coverage End Date A[employer] [address] [address] [place] [address] [id number] DOROTHY MODI Self - patient is the [...]
--- OUTSIDE RECORDS SUMMARY | 2024-09-24 15:00 | XMS_ITS | Referral Summary ---
Author Organization [facility] Address [address] [place] [address] Care Team Providers Care Therapeutic Recreation Director Name Role Phone Natalie Blevins Primary Care Provider [phone] Encounters Date Type Department Care Team Description 08/06/2024 Refill [facility] [address] [facility] Allergy/Immunology [address] [place] [address] Kylee Hernandez, Adverse effect of drug, subsequent encounter; Seasonal allergic rhinitis due to pollen 07/09/2024 myChart Message [facility] [address] [facility] Allergy/Immunology [address] [place] [address] Kylee Hernandez DO Allergy Shots from Last [...] Description 02/06/2025 10:00 AM EDT Office Visit [address] Allergy/Immunology [address] [place] [address] Kylee Hernandez, [address] [place] [address] [place] [id number] [place] [employer] [facility] Care Teams Therapeutic Recreation Director Relationship Specialty Start Date End Date Natalie Blevins [address] [place] [address] [facility] [facility] [place] [address] PCP - General Family Medicine 03/04/23
--- OUTSIDE RECORDS SUMMARY | 2024-09-24 15:00 | XMS_ITS | Encounter Summary ---
Author Organization [facility] Address [address] [place] [address] Phone Care Team Providers Care Bag Making Machine Operator Name Role Phone Ania Noe NP Primary Care Provider [phone] Natalie Blevins MD Primary Care Provider Encounter Details Date Type Department Care Team (Late st Contact Info) Description 06/16/2023 Telephone [facility] Specialties [address] [place], [place] [address] [place] [address] Corbin Beckford [address] [place] [address]. [address] [place] [address] [email or web address] Social History Tobacco Use Types Packs/Day Years [...] Description 02/20/2025 11:30 AM EDT Office Visit [facility] Neurology at [place] [address] [place] [address] Rosanne Julian PA-C [address] [place] [address] Department of Neurology, [place] [address] [email or web address] documented as of this encounter Visit Diagnoses Not on filedocumented in this encounter Care Teams Bag Making Machine Operator Relationship Specialty Start Date End Date Ania Noe NP [address] [place] [address] PCP - General 07/02/21 11/30/23 Natalie Blevins MD [address] [place] [address] PCP - General Internal Medicine 12/01/23 documented as of this encounter Additional Source Comments The information contained in this document represents components of the legal health record. It is not the complete legal health record.[facility]
--- OUTSIDE RECORDS SUMMARY | 2024-09-24 15:00 | XMS_ITS | Clinical Summary ---
Author Organization [facility] Address [address] [place] [address] Care Team Providers Care Materials Engineering Technician Name Role Phone Natalie Blevins Primary Care Provider [phone] Allergies Active Allergy Reactions Criticality Noted Date [...] Type Department Care Team Description 08/06/2024 Refill [facility] [address] [facility] Allergy/Immunology [address] [place] [address] Kylee Hernandez DO Adverse effect of drug, subsequent encounter; Seasonal allergic rhinitis due to pollen 07/09/2024 myChart Message [facility] [address] [facility] Allergy/Immunology [address] [place] [address] Kylee Hernandez DO Allergy Shots from Last [...] Description 02/06/2025 10:00 AM EDT Office Visit [facility] 198 [place] Allergy/Immunology [address] [place] [address] Kylee Hernandez DO [address] [place] [address] Health Maintenance Due Date Last Done Comments Cervical Cancer Screening 1980 HIV Screening 1980 HPV and Pap Smear 1980 Hepatitis C Screening 1980 Pap Smear 1980 Varicella Vaccines (1 of 2 - 13+ 2-dose series) 1993 Hepatitis B Vaccines (1 of 3 - 19+ 3-dose series) 09/19/1999 Mammogram 2020 COVID-19 Vaccine ( - season) 2024 04/28/2023, 04/02/2022, 11/06/2021, Additional history exists Alcohol/Substance Use Screening 05/16/2024 Depression Screening and Follow-Up 05/16/2024 [employer] Annual Screening 05/16/2024 Influenza Vaccine [...] to complete this topic Insurance DR [id number] [employer] [facility] Care Teams Materials Engineering Technician Relationship Specialty Start Date End Date Natalie Blevins [address] [facility] [place] [address] PCP - General Family Medicine 03/04/23
== END 2024-09-24 15:31 | disposition home or self-care (01) ==
LOC: HO.HUSH 14:57
PROVIDERS: PCP Family Medicine; Visit Provider Urology
DX: Z13.9 Encounter for screening, unspecified (principal); N20.0 Calculus of kidney
CPT/HCPCS: 99203

== ENCOUNTER → 2024-09-24 14:56 | Outpatient (BNVA) | payer OTHER, SELFPAY | PROVIDERS: PCP Family Medicine; Visit Provider Urology | DX: N20.0 Calculus of kidney (principal) | CPT/HCPCS: 81003 ==

== ENCOUNTER 2024-12-11 07:51 | Outpatient (REF) | payer OTHER, SELFPAY ==
--- NOTE | ~2024-12-11 | US_ITS ---
CLINICAL HISTORY: N20.0 - Calculus of kidney US renal with Color Doppler Comparison: Prior relevant studies not available for comparison at the time of this interpretation Findings: Right kidney normal size and echotexture, 10.6 cm length. No hydronephrosis. No renal masses. Normal color flow. Nonobstructing caliceal stone lower pole measuring 2 x 2 x 2 mm Left kidney normal size and echotexture, 10.0 cm length. No hydronephrosis calculus or mass. Normal color flow. Impression: 1. Nephrolithiasis on the right. No evidence of hydronephrosis. This document has been electronically signed by: Giovanni Gilliland MD on 12/11/2024 11:05:25
--- OUTSIDE RECORDS SUMMARY | 2024-12-11 07:53 | XMS_ITS | Data Portability ---
Author Organization [facility] Palencia s, [address] Address [address] [place] [address] Assessment No assessment recorded. Plan of Treatment Reminders Order Date Submit Date Provider Last Modified By Organization Details Last Modified Time Details Appointments None recorded. Lab rapid strep group A, throat 2023 024 [email or web address] _[facility], [address] [place] [address], [id number], 4 10:42:46 SARS CoV 2 (COVID-19) Ag, QL, [place], upper respiratory specimen 2023 024 [email or web address] _[facility], [address] [place] [address], [id number], 4 10:42:48 rapid flu (A+B) 2021 022 [email or web address] 05 [facility], [address] [place] [address], [address], 2 12:08:31 Referral None recorded. Procedures None recorded. Surgeries None recorded. Imaging None recorded. Medication Orders Paxlovid 300 mg (150 mg x 2)-100 mg tablets in a dose pack 2023 024 [facility]/Pharmacy #1230, [address] [facility], [place], [address], 4 10:42:46 benzonatate 100 mg capsule 2021 [facility], [address] [place], [address], 4 09:49:26 Tamiflu 75 mg capsule 2021 [address], [address] [place], [address], 4 09:49:35 albuterol sulfate HFA 90 mcg/actuati on aerosol inhaler [address]/Pharmacy #1230, [address] [place], [address], 4 09:54:24 Patient TargetsNo targets recorded. Patient Instructions Encounter Date Encounter Id Patient Instructions Last Modified By Organization Details Last Modified Time 05/02/2022 [id number] influenza (flu): care instructions [email or web address] Not available 05/02/2022 12:08:31 Go to the [facility] emergency department if you develop [...] without a prescription. Drink plenty of water. [email or web address] Not available 05/02/2022 13:05:18 01/25/2024 [id number] Acute Sinusitis: Care Instructions [email or web address] Not available 01/25/2024 10:42:44 You have been [...] this over a decongestant. 3. Saline Nasal [place] 4. Salt Water Gargles. I would be [...] AND HUMAN SERVICES Thank you for visiting [facility] today, please feel free to call our office you have any questions or concerns. [email or web address] Not available 01/25/2024 10:42:42 Reason for Referral None Reported. Results Created Date Observation Date Name Description Value Unit Range Abnormal Flag Note LastModifiedBy Organization Detail LastModifiedTime 05/02/20 22 05/02/2022 rapid flu (A+B) Unknown Analyte Normal = Negati ve Not Available [address], [address], 05/02/2022 11:39:58 05/02/20 22 05/02/2022 rapid flu (A+B) Unknown Analyte positi ve Not Available [address], [address], 05/02/2022 11:39:58 05/02/20 22 05/02/2022 rapid flu (A+B) Unknown Analyte Normal = Negati ve Not Available [address] [place] [address], [address], 05/02/2022 11:39:58 05/02/20 22 05/02/2022 rapid flu (A+B) Unknown Analyte negati ve Not Available [address] [place] [address], [address], 05/02/2022 11:39:58 01/25/20 24 01/25/2024 SARS CoV 2 (COVI D-19) Ag, QL, IA, upper respi rator y speci men Unknown Analyte positi ve Not Available [address] [place], [address], 01/25/2024 09:56:55 01/25/20 24 01/25/2024 SARS CoV 2 (COVI D-19) Ag, QL, IA, upper respi rator y speci men Unknown Analyte yes Not Available [address]_ [facility] [address] [facility] [place], [address], 01/25/2024 09:56:55 01/25/20 24 01/25/2024 rapid strep group A, throa t Unknown Analyte negati ve Not Available [address] [facility] [place], [address], 01/25/2024 09:56:49 01/25/20 24 01/25/2024 rapid strep group A, throa t Unknown Analyte yes Not Available _ [facility] [address] [place], [address], 01/25/2024 09:56:49 Result Notes None recorded. Problems Name Problem SNOMED Code Status Onset Date Resolution Date Notes Provider Name and Address Organization Details Recorded Time Depressive disorder 46830990 Active Pari Waterford null, [place] - [facility] 09:50:43 Migraine 11487675 Active 022 SAMMI DEPINTO null, [place] - [facility] 11:37:59 Goiter 2240318 Active 022 SAMMI DEPINTO null, [place] - [facility] 2 11:38:32 Problem Notes None recorded. Procedures Surgical History [...] Name and Address Organization Details Recorded Time 917171 tree and shrub pollen environme nt,medica tion Not available Not available Not available 01/25/2024 [id number] UNK Pari Waterford anabella, [place] - [facility] 4 09:53:35 Medications [...] Pulse oximetry Heart rate Respiratory rate Systolic And Diastolic Provider Name and Address Organization Details Last Updated DateTime 4 165.1 cm 19.1 kg/m2 12212.1 2 g 97.9 [degF] 100 % 100 % 106 /min 14 /min 100/67 mm[Hg] Pari Waterford [place] - [facility] 4 09:56:25 Date Recorded Body height Body mass index (BMI) Body weight Pain severity - 0-10 verbal numeric rating [Score] - Reported Oxygen saturation Oxygen saturation in Arterial blood by Pulse oximetry Heart rate Respiratory rate Body temperature Systolic And Diastolic Provider Name and Address Organization Details Last Updated DateTime 2 165.1 cm 19 kg/m2 25566.5 3 g 4 98 % 98 % 119 /min 18 /min 98.2 [degF] 107/72 mm[Hg] SAMMI PATEL PA - [facility] 2 11:44:17 Social History Question Answer Notes LastModified by [employer] Details LastModified Time Tobacco Smoking Status Never Smoker LAVERN Snyder [facility] 05/02/2022 11:42:34 Have You Had A Flu Shot This Season? No Information not available 01/25/2024 If No, Would You Like A Flu Shot Today? No Information not available 01/25/2024 Have You Recently Traveled Abroad? No Information not available 05/02/2022 Sex: Unknown Functional Status Question Answer Note LastModified by [employer] Details LastModified Time Do you use any [...] 50 mcg/0.25mL dose 07/24/2020 completed LAVERN Snyder [facility] 05/02/2022 11:36:19 yellow fever live 07/29/2006 [...] SNOMED-CT Code Diagnosis ICD10 Code Diagnosis Note [id number] _[address] [place] [address] 09/13/2021 09:08:24 09/13/2021 10:35:40 [id number] LAVERN Vyas [address] [place] [address] 05/02/2022 10:07:30 05/02/2022 12:19:56 Influenza caused by Influenza A virus 177896275 J09.X2 [id number] LAVERN LARIOS [address] [facility] VERÓNICA Shearer [address] 01/25/2024 09:26:14 01/25/2024 10:45:01 COVID-19 727191521 U07.1 Health Concerns Section Related Observation LastModified by Organization Detai ls LastModified Time None Recorded Concern Status LastModified by Organization Details LastModified Time None Recorded Advance Directives Directive None Recorded Payers Insurance Date Sequence Insurance Name Policy Number Policy Roman Covered Member ID Roman Member ID Guarantor Name 02/09/2024 1 [employer] [facility] (EPO) [id number] Layla Kai [id number] Layla Kai 02/09/2024 1 [facility] [id number] Layla Kai [id number] Layla Kai 02/09/2024 2 [place] [facility] Layla Kai [id number] Layla Kai 02/09/2024 1 [facility] (PPO) [id number] Layla Kai [id number] Layla Kai OBGyn Episode No OBEpisode recorded.
--- OUTSIDE RECORDS SUMMARY | 2024-12-11 07:53 | XMS_ITS | Patient Health Record ---
Author Organization [facility] Address [address] [facility] [address] [place] [address] Care Team Providers Care Well Services Operator Name Role Phone NICOLASA ROJAS MD Primary Care Provider Dee Dasilva Unavailable [phone] Reason For Referral No Information Medications Medication SIG (Take, Route, Frequency, Duration) Notes Start Date End Date Status Multi For Her Orally Active Topamax 50 MG 1 tablet at bedtime Orally Once a day Active SUMAtriptan Succinate 25 MG Orally Active Problems Problem Type SNOMED Code ICD Code Onset Dates Problem Status W/U Status Risk Notes Problem Cyst of thyroid (27258874) Cyst of thyroid (246.2) Active confirmed Problem Migraine (disorder) (65025090) Migraine, unspecified without mention of intractable migraine without mention of status migrainosus (346.90) Active confirmed Major Problem Abnormal vaginal bleeding (803709428) Other disorder of menstruation and other abnormal bleeding from female genital tract (626.8) Active confirmed Diag Plan Of Treatment No Information Insurance Providers Payer Name Payer Address Payer Phone Subscriber Number Group Number Insured Name Patient Relationship to Insured Coverage Start Date Coverage End Date [employer] [address] [address] [place] [address] [id number] DOROTHY MODI Self - patient is the [...]
--- OUTSIDE RECORDS SUMMARY | 2024-12-11 07:53 | XMS_ITS | Clinical Summary ---
Author Organization [facility] Address [address] [place] [address] Phone Care Team Providers Care Settlement Technician Name Role Phone Natalie Blevins MD Primary [...] SUMAtriptan (IMITREX) 25 MG tablet Orally Active SUMAtriptan (TOSYMRA) 10 mg/actuation [place] INSTILL 10 MG BY NASAL ROUTE DAILY NEEDED. INDICATIONS: BRAND NAME MEDICALLY NECESSARY 6 each 5 4 Active fremanezumab-vf rm (AJOVY AUTOINJECTOR) 225 mg/1.5 mL AtInIndications :Migraine without aura and without status migrainosus, not intractable INJECT 225 MG UNDER THE SKIN EVERY 28 DAYS. 1.5 mL 5 5 Active topiramate (TOPAMAX) 50 MG tablet Take 1 tablet (50 mg total) by mouth daily. 90 tablet 1 5 Active amitriptyline (ELAVIL) 10 MG tablet Take 1 tablet (10 mg total) by mouth nightly at bedtime. 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 Social History Tobacco Use Types Packs/Day Years [...] 93 02/20/2024 1:05 PM EDT Temperature 36.7 C (98 F) 06/04/2023 2:51 PM EST Respiratory Rate 20 [...] Description 02/20/2025 11:30 AM EDT Office Visit [facility] Neurology at [place] [address] [place] [address] Rosanne Julian PA-C [address] [facility] [address] Department of Neurology, [place] [address] [email or web address] Health Maintenance Due Date Last Done Comments HEPATITIS C SCREENING 1998 HIV ONE-TIME SCREENING (18-65 YEARS) 1998 PAP SMEAR 2001 MAMMOGRAM 01/29/2023 01/29/2021, 10/05/2018 COVID-19 VACCINE ( season) 2024 04/28/2023, 04/02/2022, 11/06/2021, Additional history exists DEPRESSION SCREENING 02/19/2025 02/20/2024 Adult Td,Tdap Booster 04/12/2026 04/12/2016 HEPATITIS A VACCINES Aged Out 07/29/2006 No long er eligible based on patient's age to complete this topic SMOKING STATUS SCREENING (Once After 26 Yrs) Completed 02/20/2024 HIB VACCINES Aged Out No longer eligi ble based on patient's age to complete this topic MENINGOCOCCAL VACCINES (ACWY) Aged Out No longer eligible based on patient's age to complete this topic MENINGOCOCCAL VACCINES (B) Aged Out N o longer eligible based on patient's age to [...] (No Interpretation) (01/29/2021 12:00 AM EDT) Narrative TERRY - 09/04/2021 12:18 PM EDT This study is for PACS storage only and not for interpretation. us Andre Dneg MD IMG OUTSIDE IMAGING W/OUT INTE RPRETATION Final Result [id number] from Last 3 Months or Most Recently Relevant to Health Maintenance Insurance Care Teams Settlement Technician Relationship Specialty Start Date End Date Natalie Blevins MD [address] [place] [address] PCP - General Internal Medicine 12/01/23 Additional Source Comments The information contained in this document represents components of the legal health record. It is not the complete legal health record.[facility]
--- OUTSIDE RECORDS SUMMARY | 2024-12-11 07:53 | XMS_ITS | Clinical Summary ---
Author Organization [facility] Address [address] [place] [address] Care Team Providers Care Insurance Sales Representative Name Role Phone Natalie Blevins Primary Care Provider [phone] Allergies Active Allergy Reactions Criticality Noted Date [...] Description 02/06/2025 10:00 AM EDT Office Visit [address] Allergy/Immunology [address] [place] [address] Kylee Hernandez DO [address] [place] [address] Health Maintenance Due Date Last Done Comments [...] of Health Annual Screening 05/16/2024 Influenza Vaccine (#1) 2025 3, 02/12/2022, 02/11/2020, Additional history exists DTaP,Tdap,and Td Vaccines (2 - Td or Tdap) 04/12/2026 04/12/2016 RSV Vaccine (60+ years old and patients) (1 - 1-dose 75+ series) 09/19/2055 Pneumococcal Vaccine: Pediatric (0-5 Years) and At-Risk Patients (6-50 Years) Aged Out No longer eligible based on patient's age to complete [place] [id number] [employer] [facility] Care Teams Insurance Sales Representative Relationship Specialty Start Date End Date Natalie Blevins [address] [place] [address] PCP - General Family Medicine 03/04/23
== END 2024-12-11 07:52 | disposition home or self-care (01) ==
LOC: HO.US 07:51
PROVIDERS: PCP Family Medicine; Visit Provider Urology
DX: N20.0 Calculus of kidney (principal)
CPT/HCPCS: 76775

== ENCOUNTER → 2024-12-11 07:53 | Outpatient (BNV) | payer OTHER, SELFPAY | PROVIDERS: PCP Family Medicine; Visit Provider Radiology Diagnostic Radiology | DX: N20.0 Calculus of kidney (principal) | CPT/HCPCS: 76775 ==

== ENCOUNTER 2025-01-31 14:36 | Outpatient (REF) | payer OTHER, SELFPAY ==
--- OUTSIDE RECORDS SUMMARY | 2025-01-31 16:21 | XMS_ITS | Encounter Summary ---
Author Organization [facility] Address [address] [place] [address] Phone Care Team Providers Care Dietary Tech Name Role Phone Natalie Blevins MD Primary Care Provider Reason for Visit * Reason Comments Medication Refill Encounter Details Date Type Department Care Team (Late st Contact Info) Description 01/07/[address] [facility] Neurology at [address] [address] Andre Deng MD [address] [place] [address] Department of Neurology, [place] [address] [email or web address] Medication Refill Social History Tobacco Use [...] Description 02/20/2025 11:30 AM EDT Office Visit [facility] Neurology at [place] [address] [place] [address] Rosanne Julian PA-C [address] Department of Neurology, [place] [address] [email or web address] documented as of this encounter Visit Diagnoses Not on filedocumented in this encounter Additional Health Concerns Assessment Noted Time PHQ-2 Depression Total Score: 0 02/20/20 24 1:05 PM EDT documented as of this encounter Care Teams Dietary Tech Relationship Specialty Start Date End Date Natalie Blevins MD [address] [place] [address] PCP - General Internal Medicine 12/01/23 documented as of this encounter Additional Source Comments The information contained in this document represents components of the legal health record. It is not the complete legal health record.[facility]
--- OUTSIDE RECORDS SUMMARY | 2025-01-31 16:21 | XMS_ITS | Clinical Summary ---
Author Organization [facility] Address [address] [place] [address] Care Team Providers Care Electrifier Operator Name Role Phone Natalie Blevins Primary Care Provider [phone] Allergies Active Allergy Reactions Criticality Noted Date [...] Description 02/06/2025 10:00 AM EDT Office Visit [address] Allergy/Immunology [address] [place] [address] Kylee Hernandez DO [address] [place] [address] Health Maintenance Due Date Last Done Comments Cervical Cancer Screening 1980 HIV Screening 1980 HPV and Pap Smear 1980 Hepatitis C Screening 1980 Pap Smear 1980 Varicella Vaccines (1 of 2 - 13+ 2-dose series) 1993 Hepatitis B Vaccines (1 of 3 - 19+ 3-dose series) 09/19/1999 Mammogram 2020 Alcohol/Substance Use Screening 05/16/2024 Depression Screening and Follow-Up 05/16/2024 Social Drivers of Health Annual Screening 05/16/2024 COVID-19 Vaccine ( season) 2025 04/28/2023, 04/02/2022, 11/06/2021, Additional history exists Influenza Vaccine (#1) 2025 , 02/12/2022, 02/11/2020, Additional history exists DTaP,Tdap,and Td Vaccines (2 - Td or Tdap) 04/12/2026 04/12/2016 RSV Vaccine (60+ years old and patients) (1 - 1-dose 75+ series) 09/19/2055 Pneumococcal Vaccine: Pediatric (0-5 Years) and At-Risk Patients (6-50 Years) Aged Out No longer eligible based on patient's age to [place] [id number] [employer] [facility] HS/FREE CARE Care Teams Electrifier Operator Relationship Specialty Start Date End Date Nataile Blevins [address] [place] [address] PCP - General Family Medicine 03/04/23
--- OUTSIDE RECORDS SUMMARY | 2025-01-31 16:21 | XMS_ITS | Clinical Summary ---
Author Organization [facility] Address [address] [place] [address] Phone Care Team Providers Care Rhia Name Role Phone Natalie Blevins MD Primary Care Provider Allergies Active Allergy Reactions Criticality Noted Date Comments Pepper (Genus Capsicum) Nausea Only 04/26/2023 Red pepper causes severe GI upset, nausea, vomiting and diarrhea Medications loratadine (CLARITIN) 10 mg tablet Take 10 mg by mouth. 03/14/20 Active mv,calcium,min /iron/folic/vi tK (MULTI FOR HER ORAL) Orally Active albuterol 90 mcg/actuation inhaler Inhale 2 puffs every 6 hours by inhalation route. 05/02/20 22 Active azelastine (ASTELIN) 137 mcg (0.1 %) nasal spray 2 sprays by Nasal route. 04/26/20 23 Active busPIRone (BUSPAR) 7.5 MG tablet Take 7.5 mg by mouth. 03/09/20 22 Active doxycycline hyclate (VIBRAMYCIN) 50 MG capsule 60 each, TAKE 1 CAPSULE BY MOUTH TWICE A DAY, 0 Refills, 07/01/21 20:31:00 EST, Partial fill upon patient request if the prescription is for a schedule II opioid drug. 07/01/19 Active fluticasone propionate (FLONASE) 50 mcg/actuation nasal spray 1 spray by Nasal route. Active SUMAtriptan (IMITREX) 25 MG tablet Orally Active SUMAtriptan (TOSYMRA) 10 mg/actuation [place] INSTILL 10 MG BY NASAL ROUTE DAILY NEEDED. INDICATIONS: BRAND NAME MEDICALLY NECESSARY 6 each 5 05/14/20 24 Active fremanezumab-v frm (AJOVY AUTOINJECTOR) 225 mg/1.5 mL AtInIndication s:Migraine without aura and without status migrainosus, not intractable INJECT 225 MG UNDER THE SKIN EVERY 28 DAYS. 1.5 mL 5 08/17/19 25 Active topiramate (TOPAMAX) 50 MG tablet Take 1 tablet (50 mg total) by mouth daily. 90 tablet 1 10/11/19 25 Active amitriptyline (ELAVIL) 10 MG tablet TAKE 1 TABLET (10 MG TOTAL) BY MOUTH NIGHTLY AT BEDTIME. TO CLARIFY THE DOSE SHOULD BE 10 MG NIGHTLY 90 tablet 1 01/16/20 25 Active amitriptyline (ELAVIL) 10 MG tablet Take 1 tablet (10 mg total) by mouth nightly at bedtime. 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 Encounters Date Type Department Care Team Description 01/15/2025 Refill [facility] Neurology at [address] [address] Andre Deng MD Medication Refill 01/07/2025 Refill [facility] Neurology at [address] [address] Andre Deng MD Medication Refill from Last [...] Description 02/20/2025 11:30 AM EDT Office Visit [facility] Neurology at [place] [address] [address] Rosanne Julian PA-C [address] Department of Neurology, [place] [address] [email or web address] Health Maintenance Due Date Last Done Comments HEPATITIS C SCREENING 1998 HIV ONE-TIME SCREENING (18-65 YEARS) 1998 PAP SMEAR 2001 MAMMOGRAM 01/29/2023 01/29/2021, 10/05/2018 INFLUENZA VACCINE (#1) 2024 , 02/15/2023, 02/12/2022, Additional history exists COVID-19 VACCINE ( season) 2025 04/28/2023, 04/02/2022, 11/06/2021, Additional history exists DEPRESSION [...] OUTSIDE IMAGING W/OUT INTE RPRETATION Final Result PERCIPIO_BWH from Last 3 Months or Most Recently Relevant to Health Maintenance [place] [address] [place] [address] [employer] Care Teams Rhia Relationship Specialty Start Date End Date Natalie Blevins MD [address] [place], [place] [address] [address] PCP - General Internal Medicine 12/01/23 Additional Source Comments The information contained in this document represents components of the legal health record. It is not the complete legal health record.[facility]
--- OUTSIDE RECORDS SUMMARY | 2025-01-31 16:21 | XMS_ITS | Encounter Summary ---
Author Organization [facility] Address [address] [place] [address] Phone Care Team Providers Care Warehouse Administrator Name Role Phone Ania Noe NP Primary Care Provider [phone] Natalie Blevins MD Primary Care Provider Encounter Details Date Type Department Care Team (Late st Contact Info) Description 06/16/2023 Telephone [facility] Specialties [address] [place], [place] [address]2 [place] [address] Corbin Beckford [address] [place] [address]. 5[address] [place] [address] [email or web address] Social History Tobacco Use Types Packs/Day Years [...] Description 02/20/2025 11:30 AM EDT Office Visit [facility] Neurology at [place] [address] [place] [address] Rosanne Julian PA-C [address] Department of Neurology, [place] [address] [email or web address] documented as of this encounter Visit Diagnoses Not on filedocumented in this encounter Care Teams Warehouse Administrator Relationship Specialty Start Date End Date Ania Noe NP [address] [place] [address] PCP - General 07/02/21 11/30/23 Natalie Blevins MD [address] [place] [address] PCP - General Internal Medicine 12/01/23 documented as of this encounter Additional Source Comments The information contained in this document represents components of the legal health record. It is not the complete legal health record.[facility]
== END 2025-01-31 14:37 | disposition home or self-care (01) ==
LOC: HO.MAMMO 14:36
PROVIDERS: PCP Family Medicine; Visit Provider Family Medicine
DX: Z12.31 Encounter for screening mammogram for malignant neoplasm of breast (principal)
CPT/HCPCS: 77063; 77067

== ENCOUNTER → 2025-01-31 14:45 | Outpatient (BNV) | payer OTHER, SELFPAY | PROVIDERS: PCP Family Medicine; Visit Provider Internal Medicine | DX: Z12.31 Encounter for screening mammogram for malignant neoplasm of breast (principal) | CPT/HCPCS: 77063; 77067 ==

== ENCOUNTER 2025-02-01 16:01 | Outpatient (AMB) | payer OTHER, SELFPAY ==
--- NOTE | 2025-02-01 16:02 | A.OFFVIS_ITS ---
Intake Visit Reasons: 4m/ US Intake Note: Patient presents today via telehealth for 4m/US * 12/11 Renal US Urology Medication:None Blood Thinner:None Antibiotic Allergies:None Allergies Seasonal Allergies Allergy (Severe, Verified 02/01/25 16:02) Itchy Eyes Medication List - Last Reconciled 02/03/25 by Rupa Wilson MD amitriptyline 10 mg PO BEDTIME sumatriptan 20 mg/actuation mg intranasal topiramate mg PO HPI Comments Details: 02/01/25-- Layla is a 44-year-old female who was initially evaluated on 09/24/2024 after she was referred due to diagnosis of right kidney stone on CAT scan imaging in July. During the initial visit she was asymptomatic. She presents as a telehealth follow-up to discuss ultrasound results. Ultrasound was done in November which notes a 2 mm stone in the right kidney persists no hydronephrosis. History of Present Illness The patient is a 44-year-old female presenting with a follow-up on the right kidney stone. Initially evaluated on September 24, 2024, after a CT scan in July diagnosed a right kidney stone, she was asymptomatic during the first visit. A follow-up ultrasound in November showed a persistent 2 mm stone in the right kidney without hydronephrosis, located in the lower pole, reducing movement likelihood. Dietary and fluid intake modifications have been advised to prevent stone growth, with the patient adhering to these recommendations, including lemon in her water. A 24-hour urine collection test has been recommended to assess stone risk factors, with detailed instructions provided for its completion. Results - Ultrasound (November): 2 mm stone in right kidney, no hydronephrosis Plan 1. Nephrolithiasis (Right Kidney Stone) - Monitor stone size and position with periodic ultrasounds every 9 to 12 months. - Recommend dietary modifications and increased fluid intake to prevent stone growth. - Conduct a 24-hour urine collection to assess stone risk factors. - Prescribe tamsulosin if the stone begins to move and causes discomfort, unless contraindicated. 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 Recently, she was in the ED -07/26/24, with right sided abdominal pain and a CT scan with IV contrast revealed an incidental punctate calculus in the kidney while also noting significant stool retention in the colon. She states she uses MiraLAX. I have discussed diet modification to decrease risk of forming more kidney stones. I have discussed low oxalate diet and specific foods to avoid including certain green leafy vegetables, chocalate, nuts, tea, beets, rubarb; low sodium, decreased use of animal protein and the importance of hydration drinking up to 2-2.5 liters of fluids and use of adding lemon to water to increase citrate in the diet. A pamphlet is also provided today. Results - Imaging/CT Scan Abd/pelvis with IV Contrast-07/26/24: Noted a tiny punctate andrew culus in the kidney and a large amount of stool in the colon. - Urinalysis today is negative for blood, or leukocytes. 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 Review of Systems Const All systems reviewed & are unremarkable except as noted in HPI and below Reports no additional complaints Eyes Reports no additional complaints ENT Reports no additional complaints Card Reports no additional complaints Resp Reports no additional complaints GI Reports no additional complaints Reports as per HPI Musc Reports no additional complaints Skin/Breast Reports system reviewed and no additional complaints, except as documented Neuro Reports no additional complaints Psych Reports no additional complaints Endo Reports no additional complaints Heriberto/Lymph Reports no additional complaints Aller/Immun Reports no additional complaints Telehealth Telehealth Telehealth Platform: [facility] Location of provider rendering services: practice address Location of patient: address on file Patient Identification confirmed using: Name, : Yes Telehealth method: voice only Patient verbally consented to treatment: Yes Patient verbally consented to billing insurance company: Yes Patient informed of any privacy concerns related to visit: Yes Minutes spent on Phone/Video with Pt.: 14 Results Reviewed Results Reviewed: Date of Service: 12/11/24 CLINICAL HISTORY: N20.0 - Calculus of kidney US renal with Color Doppler Comparison: Prior relevant studies not available for comparison at the time of this interpretation Findings: Right kidney normal size and echotexture, 10.6 cm length. No hydronephrosis. No renal masses. Normal color flow. Nonobstructing caliceal stone lower pole measuring 2 x 2 x 2 mm Left kidney normal size and echotexture, 10.0 cm length. No hydronephrosis calculus or mass. Normal color flow. Impression: 1. Nephrolithiasis on the right. No evidence of hydronephrosis. Date of Service: 07/26/24 EXAMINATION: CT ABDOMEN PELVIS WITH IV CONTRAST HISTORY: RLQ pain COMPARISON: There are no prior studies for comparison. TECHNIQUE: CT scan of the abdomen and pelvis was performed following administration of 85 mL Omnipaque 350 using standard departmental protocol. Coronal and sagittal reformatted images were generated and reviewed. Oral contrast material was not administered at the request of the referring physician. This CT exam was performed with one or more of the following dose reduction techniques: automated exposure control, adjustment of the mA and/or kV according to patient size, use of iterative reconstruction technique. DLP: 397 mGy-cm FINDINGS: LOWER CHEST: The visualized lung bases are clear. There is no pleural effusion. CARDIOVASCULATURE: The heart is normal in size. There is no pericardial effusion. LIVER: The liver is normal in size and contour. No liver mass is identified. The hepatic and portal veins are patent. GALLBLADDER / BILE DUCTS: The gallbladder is unremarkable. There is no intra or extrahepatic biliary ductal dilatation. SPLEEN: The spleen is normal in size. No focal splenic lesion is identified. PANCREAS: The pancreas is unremarkable in appearance. ADRENAL GLANDS: Within normal limits. KIDNEYS/RETROPERITONEUM: There is a punctate nonobstructing calculus at the lower pole of the right kidney. There is no hydronephrosis. The left kidney is unremarkable. No renal masses are identified. LYMPH NODES: No abdominal or pelvic lymphadenopathy. VASCULATURE: The abdominal aorta is normal in caliber. MESENTERY/PERITONEUM: No free fluid. No masses. There is no free intraperitoneal gas. STOMACH: The stomach is collapsed, limiting evaluation. SMALL BOWEL: The small bowel is normal in caliber. COLON: There is a large amount of stool throughout the colon. APPENDIX: Normal. URINARY BLADDER/PELVIC ORGANS: The urinary bladder is unremarkable. The uterus and ovaries are unremarkable. BONES / SOFT TISSUES: No suspicious bony or soft tissue abnormalities. IMPRESSION: 1. Large amount of stool throughout the colon. 2. A normal appendix is visualized. 3. Punctate right lower pole renal calculus. Assessment & Plan Assessment & Plan (1) Kidney stone: Code(s): N20.0 - Calculus of kidney Category: Medical Plan Plan 1. Nephrolithiasis (Right Kidney Stone) - Monitor stone size and position with periodic ultrasounds every 9 to 12 months. - Recommend dietary modifications and increased fluid intake to prevent stone growth. - Conduct a 24-hour urine collection to assess stone risk factors. - Prescribe tamsulosin if the stone begins to move and causes discomfort, unless contraindicated. Orders: Orders US renal BI 10 Months N20.0 - Calculus of kidney Patient Instructions: The patient had an opportunity to ask questions regarding treatment plan. The patient expressed understanding and agreement with the above treatment plan. The patient is aware they should contact our office by phone for worsening of their current condition or the appearance of new symptoms. Compliance is encouraged with any medications and followup testing that is ordered. It is a privilege to be allowed the opportunity to participate in the urologic care of your patient. If you have any questions or concerns regarding treatment for the above conditions please do not hesitate to contact me. The office telephone contact is [phone]. This note is constructed in part using voice recognition software. While every effort has been made to ensure accuracy rug scratcher errors may have been included. Yours sincerely, Rupa Wilson MD Scribe Plan - Not visible on output: Patient was informed and verbally consented to the use of an ambient scribe for clinic note documentation during this visit. Coding Level of Care Code Tele Est Pt Level 3 (48206) Diagnoses Kidney stone N20.0
--- OUTSIDE RECORDS SUMMARY | 2025-02-01 16:06 | XMS_ITS | Encounter Summary ---
Author Organization [facility] Address [address] [place] [address] Phone Care Team Providers Care Consulting Technical Manager Name Role Phone Ania Noe NP Primary Care Provider [phone] Natalie Blevins MD Primary Care Provider Encounter Details Date Type Department Care Team (Late st Contact Info) Description 06/16/2023 Telephone [facility] Specialties [address] [place], [place] [address]2 [place] [address] Corbin Beckford [address] [place] [address]. [address] [place] [address] [email or web address] Social History Tobacco Use Types Packs/Day Years [...] Description 02/20/2025 11:30 AM EDT Office Visit [facility] Neurology at [place] [address] [place] [address] Rosanne Julian PA-C [address] Department of Neurology, [place] [address] [email or web address] documented as of this encounter Visit Diagnoses Not on filedocumented in this encounter Care Teams Consulting Technical Manager Relationship Specialty Start Date End Date Ania Neo NP [address] [place] [address] PCP - General 07/02/21 11/30/23 Natalie Blevins MD [address] [place] [address] PCP - General Internal Medicine 12/01/23 documented as of this encounter Additional Source Comments The information contained in this document represents components of the legal health record. It is not the complete legal health record.[facility]
--- OUTSIDE RECORDS SUMMARY | 2025-02-01 16:06 | XMS_ITS | Clinical Summary ---
Author Organization [facility] Address [address] [place] [address] Phone Care Team Providers Care Tipple Operator Name Role Phone Natalie Blevins MD [...] tablet Orally Active SUMAtriptan (TOSYMRA) 10 mg/actuation [place] INSTILL 10 MG BY NASAL ROUTE DAILY [...] Type Department Care Team Description 01/15/2025 Refill [facility] Neurology at [address] [address] Anrde Deng MD Medication Refill 01/07/2025 Refill [facility] Neurology at [address] [address] Andre Deng MD Medication Refill from Last [...] Description 02/20/2025 11:30 AM EDT Office Visit [facility] Neurology at [place] [address] [address] Rosanne Julian PA-C [address] Department of Neurology, Division [place] [address] [email or web address] Health Maintenance Due Date Last [...] Most Recently Relevant to Health Maintenance [place] [address] [place] [address] [employer] Care Teams Tipple Operator Relationship Specialty Start Date End Date Natalie Blevins MD [address] [place], [place] [address] [address] PCP - General Internal Medicine 12/01/23 Additional Source Comments The information contained in this document represents components of the legal health record. It is not the complete legal health record.[facility]
--- OUTSIDE RECORDS SUMMARY | 2025-02-01 16:06 | XMS_ITS | Clinical Summary ---
Author Organization [facility] Address [address] [place] [address] Care Team Providers Care Livestock Rancher Name Role Phone Natalie Blevins Primary Care Provider [phone] Allergies Active Allergy Reactions Criticality Noted Date [...] Description 02/06/2025 10:00 AM EDT Office Visit [address] Allergy/Immunology [address] [place] [address] Kylee Hernandez DO [address] [place] [address] Health Maintenance Due Date Last Done Comments [...] to complete [place] [id number] [employer] [facility] HS/FREE CARE Care Teams Livestock Rancher Relationship Specialty Start Date End Date Natalie Blevins [address] [place] [address] PCP - General Family Medicine 03/04/23
--- OUTSIDE RECORDS SUMMARY | 2025-02-01 16:06 | XMS_ITS | Encounter Summary ---
Author Organization [facility] Address [address] [place] [phone] Phone Care Team Providers Care Dressmaking Teacher Name Role Phone Natalie Blevins MD Primary Care Provider Reason for Visit * Reason Comments Medication Refill Encounter Details Date Type Department Care Team (Late st Contact Info) Description 01/07/2025 Refill [facility] Neurology at [address] [address] Andre Deng MD [address] [place] [address] Department of Neurology, [place] [address] [email or web address] Medication Refill Social History Tobacco Use [...] Description 02/20/2025 11:30 AM EDT Office Visit [facility] Neurology at [place] [address] [place] [address] Rosanne Julian PA-C [address] Department of Neurology, [place] [address] [email or web address] documented as of this encounter Visit Diagnoses Not on filedocumented in this encounter Additional Health Concerns Assessment Noted Time PHQ-2 Depression Total Score: 0 02/20/20 24 1:05 PM EDT documented as of this encounter Care Teams Dressmaking Teacher Relationship Specialty Start Date End Date Natalie Blevins MD [address] [place] [address] PCP - General Internal Medicine 12/01/23 documented as of this encounter Additional Source Comments The information contained in this document represents components of the legal health record. It is not the complete legal health record.[facility]
== END 2025-02-01 16:45 | disposition home or self-care (01) ==
LOC: HO.HUSH 16:02
PROVIDERS: PCP Family Medicine; Visit Provider Urology
DX: N20.0 Calculus of kidney (principal)
CPT/HCPCS: 99213

== ENCOUNTER 2025-03-04 12:17 | Outpatient (REF) | payer OTHER, SELFPAY ==
--- NOTE | ~2025-03-04 | US_ITS ---
EXAMINATION(S): 1. MM DIAGNOSTIC DIGITAL BREAST TOMOSYNTHESIS, RIGHT 2. Targeted ultrasound of the right breast CLINICAL INFORMATION: Callback from screening for right breast asymmetry located in the upper breast posterior depth on the MLO view. COMPARISON: Mammograms on January 31, 2025 and March 02, 2024. TECHNIQUE: Digital breast tomosynthesis is performed in MLO and XCCL along with computer-aided detection (CAD). Synthesized 2D images are generated from the tomosynthesis. Spot compression tomosynthesis were obtained. FINDINGS: BREAST COMPOSITION: There are scattered areas of fibroglandular density. RIGHT BREAST: Previously suggested asymmetry in the upper breast posterior depth could not be included on today's MLO or spot MLO views. However, this was included on the full-field XCCL, best seen on the XCCL image , located in the lateral breast posterior depth at approximately 8.3 cm from the nipple. Targeted ultrasound of the right breast was performed at the location of the mammographic finding. The survey shows a 0.7 x 0.6 x 0.4 cm hypoechoic solid mass at 10 o'clock position at 10 cm from the nipple. No internal vascularity demonstrated with color Doppler evaluation. US/US Breast RT Limited Mamm Only IMPRESSION: RIGHT BREAST: 0.7 cm solid mass at 10 o'clock position at 10 cm from the nipple. Suspicious findings. An ultrasound-guided needle core biopsy is recommended. ASSESSMENT: BI-RADS: Category 4: Suspicious RECOMMENDATION: Biopsy recommended Results and recommendations were discussed with the patient at time of visit by me. This patient's information was entered into a reminder system with a target due date for their next mammogram. Electronically signed by: Ru Otoole MD 03/04/2025 02:07 PM EDT
== END 2025-03-04 12:18 | disposition home or self-care (01) ==
LOC: HO.MAMMO 12:17
PROVIDERS: PCP Family Medicine; Visit Provider Family Medicine
DX: N64.89 Other specified disorders of breast (principal); Z80.3 Family history of malignant neoplasm of breast
CPT/HCPCS: 76642; 77061; 77065

== ENCOUNTER → 2025-03-04 12:30 | Outpatient (BNV) | payer OTHER, SELFPAY | PROVIDERS: PCP Family Medicine; Visit Provider Radiology Body Imaging | DX: N63.11 Unspecified lump in the right breast, upper outer quadrant (principal) | CPT/HCPCS: 76642; 77061; 77065 ==

== ENCOUNTER 2025-03-05 09:47 | Outpatient (REF) | payer OTHER, SELFPAY ==
--- NOTE | ~2025-03-05 | MM_ITS ---
EXAMINATION/PROCEDURES: 1. ULTRASOUND GUIDED CORE BIOPSY BREAST, RIGHT 2. ULTRASOUND GUIDED CORE BIOPSY BREAST, RIGHT (ADDITIONAL SITE) 3. POST PROCEDURE DIGITAL MAMMOGRAM, RIGHT CLINICAL INFORMATION: Patient is status post mammogram/ultrasound workup on March 04, 2025, which recommended on ultrasound-guided needle core biopsy of solid mass located at 10 o'clock position at 10 cm from the nipple that measured 0.7 x 0.6 x 0.4 cm. COMPARISON: Right mammogram/ultrasound workup on March 04, 2025. Screening mammogram on January 31, 2025. FINDINGS: Proper informed consent is obtained from the patient after discussion of the procedure, potential risks and complications, and alternatives. Patient was given an opportunity for questions. The patient appeared to understand. The patient consented to the procedure and signed the consent form. During the preprocedure evaluation, the 0.6 x 0.6 x 0.4 cm solid mass at 10 o'clock position 10 cm from the nipple was redemonstrated. During the survey, an additional adjacent ill-defined hypoechoic area measuring approximately 0.5 x 0.3 cm was seen. It was decided to sample both areas. GUIDANCE: Ultrasound-guided; aseptic technique. 1) site A (larger) LESION: 0.6 x 0.6 x 0.4 cm solid mass at 10 o'clock position at 10 cm from the nipple. ANESTHESIA: 7 cc of lidocaine 1% buffered with Sodium Bicarbonate 8.4% (9ml:1ml ratio). NEEDLE: 14-gauge Bard Marquee biopsy device with co-axial introducer. CORES: 4. CLIP: HydroMARK; shape: open coil. 2) site B (smaller) LESION: 0.5 x 0.3 cm hypoechoic area at 10 o'clock position 10 cm from the nipple, adjacent to the aforementioned mass. ANESTHESIA: 7 cc of lidocaine 1% buffered with Sodium Bicarbonate 8.4% (9ml:1ml ratio). NEEDLE: 14-gauge Bard Marquee biopsy device with co-axial introducer. CORES: 3. CLIP: HydroMARK; shape: butterfly. POST PROCEDURE UNILATERAL DIGITAL MAMMOGRAM: The post biopsy mammogram is performed in separate room using separate digital mammography equipment from the biopsy procedure. Full-field ML 90 degrees, MLO and XCCL views are obtained. Note that the visualized tissue markers could not be entirely included in all 3 views, but they appear in satisfactory position. The patient tolerated the procedure well. No immediate complications. Home instructions reviewed with the patient. Final pathology results are pending. MM/MM tomosynthesis diagnostic RT IMPRESSION: 1. Status post ultrasound-guided core biopsy of 2 adjacent soft tissue masses at 10 o'clock position at 10 cm from the nipple of the right breast . 2. Clip placed: HydroMARK; shape: open coil- for site A larger. 3. Clip placed: HydroMARK; shape: butterfly for site B smaller. 4. Pathology pending. An addendum report will be issued. BI-RADS: Post Procedure Mammograms for Marker Placement FOLLOW-UP: Awaiting Pathology Results Electronically signed by: Ru Otoole MD 03/05/2025 01:47 PM EDT
--- OUTSIDE RECORDS SUMMARY | 2025-03-05 11:06 | XMS_ITS | Clinical Summary ---
Author Organization [facility] Address [address] [place] [phone] Phone Care Team Providers Care Chairman Emeritus Name Role Phone Natalie Blevins MD Primary Care Provider Allergies Active Allergy Reactions Criticality Noted Date Comments Pepper (Genus Capsicum) Nausea Only 04/26/2023 Red pepper causes severe GI upset, nausea, vomiting and diarrhea Medications loratadine (CLARITIN) 10 mg tablet Take 10 mg by mouth. 03/14/20 Active mv,calcium,min/ iron/folic/vitK (MULTI FOR HER ORAL) [...] spray 1 spray by Nasal route. Active topiramate (TOPAMAX) 50 MG tablet Take 1 tablet (50 mg total) by mouth daily. 90 tablet 1 10/11/19 25 Active amitriptyline (ELAVIL) 10 MG tablet TAKE 1 TABLET (10 MG TOTAL) BY MOUTH NIGHTLY AT BEDTIME. TO CLARIFY THE DOSE SHOULD BE 10 MG NIGHTLY 90 tablet 1 01/16/20 25 Active SUMAtriptan (TOSYMRA) 10 mg/actuation [place] 10 mg by Nasal route daily as needed (Migraine). BRAND NAME MEDICALLY NECESSARY 6 each 5 02/21/20 25 Active SUMAtriptan (IMITREX) 25 MG tablet Orally Discontin ued(No longer taking) SUMAtriptan (TOSYMRA) 10 mg/actuation [place] INSTILL 10 MG BY NASAL ROUTE DAILY NEEDED. INDICATIONS: BRAND NAME MEDICALLY NECESSARY 6 each 5 05/14/20 24 Discontin ued(Reord er) fremanezumab-vf rm (AJOVY AUTOINJECTOR) 225 mg/1.5 mL AtInIndications :Migraine without aura and without status migrainosus, not intractable INJECT 225 MG UNDER THE SKIN EVERY 28 DAYS. 1.5 mL 08/17/19 025 Discontin ued(No longer taking) SUMAtriptan (TOSYMRA) 10 mg/actuation [place] 10 mg by Nasal route daily as needed (Migraine). 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 Encounters Date Type Department Care Team Description 02/20/2025 11:30 AM EDT Telemedicine [facility] Neurology at [address] [address] Rosanne Julian PA-C Migraine without aura and without status migrainosus, not intractable (Primary Dx) 01/15/2025 Refill [facility] Neurology at [address] [address] Andre Deng MD Medication Refill 01/07/2025 Refill [facility] Neurology at [address] [address] Andre Deng MD Medication Refill from Last [...] 02/20/2024 1:05 PM EDT Plan of Treatment Health Maintenance Due Date Last Done Comments [...] (No Interpretation) (01/29/2021 12:00 AM EDT) Narrative [facility] - 09/04/2021 12:18 PM EDT This study is for PACS storage only and not for interpretation. us Andre Deng MD IMG OUTSIDE IMAGING W/OUT INTE RPRETATION Final Result [facility] from Last 3 Months or Most Recently Relevant to [place] [id number] [facility] [employer] Care Teams Chairman Emeritus Relationship Specialty Start Date End Date Natalie Blevins MD [address] [place], [place] [address] [place] [address] PCP - General Internal Medicine 12/01/23 Additional Source Comments The information contained in this document represents components of the legal health record. It is not the complete legal health record.[facility]
--- OUTSIDE RECORDS SUMMARY | 2025-03-05 11:06 | XMS_ITS | Encounter Summary ---
Author Organization [facility] Address [address] [place] [address] Phone Care Team Providers Care News Reporter Name Role Phone Natalie Blevins MD Primary Care Provider Reason for Visit * Reason Comments Medication Refill Encounter Details Date Type Department Care Team ([facility] st Contact Info) Description 01/07/2025 Refill [facility] Neurology at [address] [address] Andre Deng MD [address] [place] [address] Department of Neurology, Division [place] [address] [email or web address] Medication Refill Social History Tobacco Use [...] as of this encounter Plan of Treatment Not on file documented as of this encounter Visit Diagnoses Not on filedocumented in this encounter Additional Health Concerns Assessment Noted Time PHQ-2 Depression Total Score: 0 02/20/20 24 1:05 PM EDT documented as of this encounter Care Teams News Reporter Relationship Specialty Start Date End Date Natalie Blevins MD [address] [place] [phone] PCP - General Internal Medicine 12/01/23 documented as of this encounter Additional Source Comments The information contained in this document represents components of the legal health record. It is not the complete legal health record.[facility]
--- OUTSIDE RECORDS SUMMARY | 2025-03-05 11:06 | XMS_ITS | Encounter Summary ---
Author Organization [facility] Address [address] [place] [address] Phone Care Team Providers Care Merchandise Executive Name Role Phone Ania Noe NP Primary Care Provider [phone] Natalie Blevins MD Primary Care Provider Encounter Details Date Type Department Care Team ([facility] st Contact Info) Description 06/16/2023 Telephone [facility] [address] [facility] [place] [address] [email or web address] [email or web address] Social History Tobacco Use Types Packs/Day Years [...] on filedocumented in this encounter Care Teams Merchandise Executive Relationship Specialty Start Date End Date Ania Noe NP [address] [place] [address] PCP - General 07/02/21 11/30/23 Natalie Blevins MD [address] [place] [address] PCP - General Internal Medicine 12/01/23 documented as of this encounter Additional Source Comments The information contained in this document represents components of the legal health record. It is not the complete legal health record.[facility]
--- OUTSIDE RECORDS SUMMARY | 2025-03-05 11:06 | XMS_ITS | Data Portability ---
Author Organization [facility] Palencia [facility], [address] Address [address] [place] [address] Assessment No assessment recorded. Plan of Treatment Reminders Order Date Submit Date Provider Last Modified By Organization Details Last Modified Time Details Appointments None recorded. Lab rapid strep group A, throat 2023 024 [email or web address] _[facility], [address] [place] [address], [phone], 4 10:42:46 SARS CoV 2 (COVID-19) Ag, QL, IA, upper respiratory specimen 2023 024 [facility], [address] [place] [address], [phone], 4 10:42:48 rapid flu (A+B) 2021 022 [email or web address] 05 [facility], [address] [place] [address], [phone], 2 12:08:31 Referral None recorded. Procedures None recorded. Surgeries None recorded. Imaging None recorded. Medication Orders Paxlovid 300 mg (150 mg x 2)-100 mg tablets in a dose pack 2023 024 [facility]acy #1230, [address] [facility], [place], [address], 4 10:42:46 benzonatate 100 mg capsule 2021 [facility], [address] [place], [address], 4 09:49:26 Tamiflu 75 mg capsule [address], [address] [place], [address], 4 09:49:35 albuterol sulfate HFA 90 mcg/actuati on aerosol inhaler [address]/Pharmacy #1230, [address] [place], [address], 4 09:54:24 Patient TargetsNo targets recorded. Patient Instructions Encounter Date Encounter Id Patient Instructions Last Modified By Organization Details Last Modified Time 05/02/2022 [id number] influenza (flu): care instructions [email or web address] Not available 05/02/2022 12:08:31 Go to the [facility] emergency department if you develop [...] without a prescription. Drink plenty of water. [email or web address] Not available 05/02/2022 13:05:18 01/25/2024 [id number] Acute Sinusitis: Care Instructions Not available 01/25/2024 10:42:44 You have been [...] this over a decongestant. 3. Saline Nasal Nemo 4. Salt Water Gargles. I would be [...] AND HUMAN SERVICES Thank you for visiting [facility] today, please feel free to call our office you have any questions or concerns. Not available 01/25/2024 10:42:42 Reason for Referral None Reported. Results Created Date Observation Date Name Description Value Unit Range Abnormal Flag Note LastModifiedBy Organization Detail LastModifiedTime 05/02/20 22 05/02/2022 rapid flu (A+B) Unknown Analyte Normal = Negati ve Not Available [address], [address], 05/02/2022 11:39:58 05/02/20 22 05/02/2022 rapid flu (A+B) Unknown Analyte positi ve Not Available [address], [address], 05/02/2022 11:39:58 05/02/20 22 05/02/2022 rapid flu (A+B) Unknown Analyte Normal = Negati ve Not Available [address] [place] [address], [address], 05/02/2022 11:39:58 05/02/20 22 05/02/2022 rapid flu (A+B) Unknown Analyte negati ve Not Available [address] [place] [address], [address], 05/02/2022 11:39:58 01/25/20 24 01/25/2024 SARS CoV 2 (COVI D-19) Ag, QL, IA, upper respi rator y speci men Unknown Analyte positi ve Not Available [address] [place], [address], 01/25/2024 09:56:55 01/25/20 24 01/25/2024 SARS CoV 2 (COVI D-19) Ag, QL, IA, upper respi rator y speci men Unknown Analyte yes Not Available 20999_ [facility] [address] [place], [address], 01/25/2024 09:56:55 01/25/20 24 01/25/2024 rapid strep group A, throa t Unknown Analyte negati ve Not Available [address] [place], [address], 01/25/2024 09:56:49 01/25/20 24 01/25/2024 rapid strep group A, throa t Unknown Analyte yes Not Available _ [facility] [address] [place], [address], 01/25/2024 09:56:49 Result Notes None recorded. Problems Name Problem SNOMED Code Status Onset Date Resolution Date Notes Provider Name and Address Organization Details Recorded Time Depressive disorder 34359093 Active Pari [place] null, [place] - [facility] 09:50:43 Migraine 59259573 Active 022 SAMMI DEPINTO null, PA - [facility] 11:37:59 Goiter 4818295 Active 022 SAMMI DEPINTO null, PA - [...] Name and Address Organization Details Recorded Time 609157 tree and shrub pollen environme nt,medica tion Not available Not available Not available 01/25/2024 Pari kyle PA - [facility] 4 [...] Updated DateTime 4 165.1 cm 19.1 kg/m2 88538.1 2 g 97.9 [degF] 100 % 100 % 106 /min 14 /min 100/67 mm[Hg] Pari Sy PA - [facility] 4 09:56:25 Date Recorded Body height Body mass index (BMI) Body weight Pain severity - 0-10 verbal numeric rating [Score] - Reported Oxygen saturation Oxygen saturation in Arterial blood by Pulse oximetry Heart rate Respiratory rate Body temperature Systolic And Diastolic Provider Name and Address Organization Details Last Updated DateTime 2 165.1 cm 19 kg/m2 43049.5 3 g 4 98 % 98 % 119 /min 18 /min 98.2 [degF] 107/72 mm[Hg] SAMMI PATEL PA - [facility] 11:44:17 Social History Question Answer Notes LastModified by Organizat ion Details LastModified Time Tobacco Smoking Status Never Smoker SAMMI kyle PA - [facility] 05/02/2022 11:42:34 Have You Had A Flu Shot This Season? No Information not available 01/25/2024 If No, Would You Like A Flu Shot Today? No Information not available 01/25/2024 Have You Recently Traveled Abroad? No Information not available 05/02/2022 Sex: Unknown Functional Status Question Answer Note LastModified by Organizat ion Details LastModified Time Do you use any [...] dose or 50 mcg/0.25mL dose 07/24/2020 completed SAMMI kyle PA Nga [facility] 05/02/2022 11:36:19 yellow fever live [...] Diagnosis SNOMED-CT Code Diagnosis ICD10 Code Diagnosis IMO Codes Diagnosis Note [id number] [address] [place] [address] 09/13/2021 09:08:24 09/13/2021 10:35:40 [id number] LAVERN Vyas [address] [place] [address] 05/02/2022 10:07:30 05/02/2022 12:19:56 Influenza caused by Influenza A virus 457807838 J09.X2 [id number] L[facility]ERN LARIOS [address] [place] [address] 01/25/2024 09:26:14 01/25/2024 10:45:01 COVID-19 852960583 U07.1 Health Concerns Section Related Observation LastModified by Organization Detai ls LastModified Time None Recorded Concern Status LastModified by Organization Details LastModified Time None Recorded Advance Directives Directive None Recorded Payers Insurance Date Sequence Insurance Name Policy Number Policy Roman Covered Member ID Roman Member ID Guarantor Name 02/09/2024 1 [employer] [place] [id number] Layla Kai [id number] Layla Kai 02/09/2024 1 [facility] [id number] Layla Kai [id number] Layla Kai 02/09/2024 2 [place] [facility] Layla Kai [id number] Layla Kai 02/09/2024 1 [facility] (PPO) [id number] Layla Kai [id number] Layla Kai Notes Date Note Type Note Provider Name and Address Organization Details Recorded Time 05/02/2022 text/html CongestionReport ed by PatientPt reports mild cough for about 2 weeks that was improved. Within the last 48 hours, developed sweats, chills, congestion, body aches, worsening cough all the sudden. Reports no SOB, wheezing, n/v/d. No known exposures. LAVERN Vyas [address] [place], [address], [place] - [facility] 05/02/2022 13:05:44 01/25/2024 text/html Sinus Complaints UCReported by Ohtunfi43 y.o female pt presents with congestion, sore throat x 3 days. Pt denies chest pain or SOB. LAVERN LARIOS [address] [place], [address], [place] - [facility] 01/25/2024 13:17:49 OBGyn Episode No OBEpisode recorded.
--- OUTSIDE RECORDS SUMMARY | 2025-03-05 11:06 | XMS_ITS | Clinical Summary ---
Author Organization [facility] Address [address] [place] [address] Care Team Providers Care Smoke And Flame Specialist Name Role Phone Natalie Blevins Primary Care Provider [phone] Allergies Active Allergy Reactions Criticality Noted Date Comments Pepper (Genus Capsicum) Nausea 04/26/2023 Red pepper causes severe GI upset, nausea, vomiting and diarrhea Medications amitriptyline (ELAVIL) 10 mg tablet Take 10 mg by mouth nightly. Active topiramate (TOPAMAX) 50 mg tablet Take 50 mg by mouth once a day. Active fexofenadine (ANDERSON) 180 mg tablet Take 180 mg by mouth once a day. Active vitamin B complex, vit C no.4 (SUPER B COMPLEX + C ORAL) Take 1 capsule by mouth daily. Active PUMPKIN SEED EXTRACT ORAL Take 3,000 Units by mouth daily. Active predniSONE (DELTASONE) 20 mg tabletIndication s:Adverse effect of drug, subsequent encounter Take 0.5 tablets (10 mg total) by mouth once a day. prednisone 30 mg 11 hours, then 7 hours and 3 hours prior to vaccine 9 tablet 02/07/20 25 Active mometasone (ELOCON) 0.1 % ointmentIndicati ons:Dermatitis Apply topically to the affected area once a day. 45 g 1 02/07/20 25 Active levocetirizine (XYZAL) 5 mg tabletIndication s:Adverse effect of drug, subsequent encounter,Season al allergic rhinitis due to pollen Take 1 tablet (5 mg total) by mouth every evening. 30 tablet 11 02/07/20 25 Active loratadine (CLARITIN) 10 mg tablet Take 10 mg by mouth once a day. 025 Discontinued fluticasone propionate (FLONASE) 50 mcg/actuation nasal spray Administer 1 spray into each nostril once a day. 025 Discontinued azelastine (ASTELIN) 137 mcg (0.1 %) nasal sprayIndications :Seasonal allergic rhinitis due to pollen Administer 2 sprays into each nostril 2 times a day. 30 mL 5 04/26/20 23 025 Discontinued fremanezumab-vfr m (AJOVY AUTOINJECTOR SUBCUTANEO) Inject under the skin. 025 Discontinued Active Problems Problem Noted Date Diagnosed Date Adverse reaction to vaccine, sequela 04/26/2023 Seasonal allergic rhinitis due to pollen 023 Encounters Date Type Department Care Team Description 02/06/2025 10:00 AM EDT Office Visit [address] Allergy/Immunology [address] [place] [address] Kylee Hernandez, Dermatitis (Primary Dx); Adverse effect of drug, subsequent encounter; Seasonal allergic rhinitis due to pollen from Last 3 Months Social History Tobacco [...] Sign Reading Time Taken Comments Blood Pressure 92/58 02/06/2025 9:38 AM EDT Pulse 75 02/06/2025 9:38 AM EDT Temperature - - Respiratory Rate 16 04/26/2023 10:11 AM EST Oxygen Saturation 97% 02/06/2025 9:38 AM EDT Inhaled Oxygen Concentration - - Weight 60.6 kg (133 lb 9.6 oz) 02/06/2025 9:38 A M EDT Height - - Body Mass Index - - Plan of Treatment Upcoming Encounters Date Type Department Care Team (Late st Contact Info) Description 02/12/2026 10:00 AM EDT Office Visit [facility] [address] [facility] Allergy/Immunology [address] [place] [address] Kylee Hernandez, DO [address] [place] [address] Health Maintenance Due Date Last Done Comments [...] to complete [place] [id number] [employer] [place] HSNO/FREE CARE Care Teams Smoke And Flame Specialist Relationship Specialty Start Date End Date Natalie Blevins [address] [place] [address] PCP - General Family Medicine 03/04/23
--- OUTSIDE RECORDS SUMMARY | 2025-03-05 11:06 | XMS_ITS | Patient Health Record ---
Author Organization [facility] Address [address] [facility] [address] [place] [address] Care Team Providers Care Road Crew Member Name Role Phone NICOLASA ROJAS MD Primary Care Provider Dee Dasilva Unavailable [phone] Reason For Referral No Information Medications Medication SIG (Take, Route, Frequency, Duration) Notes Start Date End Date Status Multi For Her Orally Active Topamax 50 MG 1 tablet at bedtime Orally Once a day Active SUMAtriptan Succinate 25 MG Orally Active Problems Problem Type SNOMED Code ICD Code Onset Dates Problem Status W/U Status Risk Notes Problem Cyst of thyroid (02536759) Cyst of thyroid (246.2) Active confirmed Problem Migraine (disorder) (08948245) Migraine, unspecified without mention of intractable migraine without mention of status migrainosus (346.90) Active confirmed Major Problem Abnormal vaginal bleeding (108383655) Other disorder of menstruation and other abnormal bleeding from female genital tract (626.8) Active confirmed Diag Plan Of Treatment No Information Insurance Providers Payer Name Payer Address Payer Phone Subscriber Number Group Number Insured Name Patient Relationship to Insured Coverage Start Date Coverage End Date [employer] [address] [address] [place] [address] [id number] DOROTHY MODI Self - patient is the [...]
[2025-03-05] MEDS: Lidocaine HCl 1 % 20 ML VIAL 18 ML SUBCUT (11:45)
== END 2025-03-05 09:48 | disposition home or self-care (01) ==
LOC: HO.MAMMO 09:47
PROVIDERS: Visit Provider Nurse Practitioner Family
DX: Z80.8 Family history of malignant neoplasm of other organs or systems (principal); Z12.31 Encounter for screening mammogram for malignant neoplasm of breast
CPT/HCPCS: 19083; 19084; 77061; 77065; 88305; 88342; 88360; A4648; J2003

== ENCOUNTER → 2025-03-05 10:00 | Outpatient (BNV) | payer OTHER, SELFPAY | PROVIDERS: Visit Provider Radiology Body Imaging | DX: C50.411 Malignant neoplasm of upper-outer quadrant of right female breast (principal) | CPT/HCPCS: 19083; 19084; 77065 ==

== ENCOUNTER 2025-03-15 09:56 | Outpatient (REF) | payer OTHER, SELFPAY ==
--- OUTSIDE RECORDS SUMMARY | 2024-08-20 | XMS_ITS | Encounter Summary ---
Author Organization [facility] Address [address] [place] [address] Phone Care Team Providers Care Delivery Consultant Name Role Phone Natalie Blevins MD Primary Care Provider Encounter Details Date Type Department Care Team (Late st Contact Info) Description 08/20/2024 Hospital Encounter [facility] [address] [place] [address] Karen Watts MD [address] [place] [address] [email or web address] Social History Tobacco Use Types Packs/Day Years Used Date Smoking Tobacco: Never Smokeless Tobacco: Never Education Answer Date Recorded Are you interested in more education? Not on enrique e 09/11/2022 Are you concerned about learning? Not on file 09/11/2022 No 09/11/2022 No 09/11/2022 Digital Access Answer Date Recorded No 10/12/2022 No 10/12/2022 Reliable internet access at home? Not on file 10/12/2022 Device with a working camera? Not on file Comments Unknown Sex and Gender Information Value Date Recorded Sex Assigned at Female 03/08/2025 8:40 AM EDT Legal Sex Female 1:59 PM EST Gender Identity Female 03/08/2025 8:40 AM EDT Sexual Orientation Straight 03/08/2025 8: 40 AM EDT documented as of this encounter Plan of Treatment Upcoming Encounters Date Type Department Care Team (Late st Contact Info) Description 03/25/2025 11:00 AM EST Pre-Admission Testing [facility] [place] Evaluation Department Please [place] [phone] Karen Watts MD [address] [place] [address] [email or web address] 03/29/2025 Hospital Encounter [facility] [address] [place] [phone] Karen Watts MD [address] [place] [address] [email or web address] 03/29/2025 Procedure Pass [facility] PER[facility] [address] [place] [phone] 03/29/2025 9:30 AM EST Procedure visit Counts include 234 beds at the [facility] [address], [address] [place] [address] Karen Watts MD [address] [place] [address] [email or web address] Scheduled Procedures Name Priority Associated Diagnoses Date/Ti me MASTECTOMY Malignant neoplasm of right female breast, unspecified estrogen receptor status, unspecified site of breast BIOPSY SENTINEL LYMPH NODE BREAST Malignant neoplasm of right female breast, unspecified estrogen receptor status, unspecified site of breast IMMEDIATE RECONSTRUCTION GLENN AST WITH IMPLANT Malignant neoplasm of right female breast, unspecified estrogen receptor status, unspecified site of breast documented as of this encounter Procedures Procedure Name Priority Date/Time Associated Diagnosis Comments BI MRI BREAST OUTSIDE (NO INTERPRETATION) Routine 08/20/2024 12:00 AM EDT documented in this encounter Results * MRI Breast Outside (No Interpretation) (08/20/2024 12:00 AM EDT) Narrative [facility] IMG INTERFACES - 03/12/2025 8:22 AM EDT This study is for PACS storage only and not for interpretation. Karen rocha MD IMG OUTSIDE IMAGING W/OUT INTERPRETATION Final Result [facility] IMG INTERFACES documented in this encounter Visit Diagnoses Not on filedocumented in this encounter Additional Health Concerns Assessment Noted Time PHQ-2 Depression Total Score: 0 02/20/20 1:05 PM EDT documented as of this encounter Care Teams Delivery Consultant Relationship Specialty Start Date End Date Natalie Blevins MD [address] [place] [address] PCP - General Internal Medicine 12/01/23 documented as of this encounter Additional Source Comments The information contained in this document represents components of the legal health record. It is not the complete legal health record.[facility]
--- OUTSIDE RECORDS SUMMARY | 2025-03-04 | XMS_ITS | Encounter Summary ---
Author Organization [facility] Address [address] [facility] [address] [place] [address] Phone Care Team Providers Care Superintendent Operating Name Role Phone Natalie Blevins MD Primary Care Provider Encounter Details Date Type Department Care Team (Late st Contact Info) Description 03/04/2025 Hospital Encounter [facility] [address] [place] [address] Karen Watts MD [address] [place] [address] [email or web address] Social History Tobacco Use Types Packs/Day [...] Description 03/25/2025 11:00 AM EST Pre-Admission Testing [facility] Pre-Procedure Evaluation Department [place] [phone] Karen Watts MD [address] [place] [address] [email or web address] 03/29/2025 Hospital Encounter [facility] PERIOPERATIVE DEPT [address] [place] [phone] Karen Watts MD [address] [place] [address] [email or web address] 03/29/2025 Procedure Pass [facility] PERIOPERATIVE DEPT [address] [place] [phone] 03/29/2025 9:30 AM EST Procedure visit [facility] [address] [facility], [address] [place] [address] Karen Watts MD [address] [place] [phone] [email or web address] Scheduled Procedures Name Priority Associated Diagnoses [...] Name Priority Date/Time Associated Diagnosis Comments BI US BREAST OUTSIDE (NO INTERPRETATION) Routine 03/04/2025 12:00 AM EDT documented in this encounter Results * US Breast Outside (No Interpretation) (03/04/2025 12:00 AM EDT) Narrative [facility] IMG INTERFACES - 03/12/2025 8:21 AM EDT This study is for PACS storage only and not for interpretation. Karen rocha MD IMG OUTSIDE IMAGING W/OUT INTERPRETATION Final Result [facility] IMG INTERFACES documented in this encounter Visit Diagnoses Not on filedocumented in this encounter Additional Health Concerns Assessment Noted Time PHQ-2 Depression Total Score: 0 02/20/20 1:05 PM EDT documented as of this encounter Care Teams Superintendent Operating Relationship Specialty Start Date End Date Natalie Blevins MD [address] [place] [address] PCP - General Internal Medicine 12/01/23 documented as of this encounter Additional Source Comments The information contained in this document represents components of the legal health record. It is not the complete legal health record.[facility]
--- OUTSIDE RECORDS SUMMARY | 2025-03-05 | XMS_ITS | Encounter Summary ---
Author Organization [facility] Address [address] [facility] [address] [place] [address] Phone Care Team Providers Care Composite Assembler Name Role Phone Natalie Blevins MD Primary Care Provider Encounter Details Date Type Department Care Team (Late st Contact Info) Description 03/05/2025 Hospital Encounter [facility] [address] [place] [address] Karen Watts MD [address] [place] [address] [email or web address] Social History Tobacco Use Types Packs/Day Years [...] Description 03/25/2025 11:00 AM EST Pre-Admission Testing [facility] Pre-Procedure Evaluation Department [place] [phone] Karen Watts MD [address] [place] [address] [email or web address] 03/29/2025 Hospital Encounter [facility] PERIOPERATIVE DEPT [address] [place] [phone] Karen Watts MD [address] [place] [address] [email or web address] 03/29/2025 Procedure Pass [facility] PERIOPERATIVE DEPT [address] [place] [phone] 03/29/2025 9:30 AM EST Procedure visit [facility] [address] [facility], [address] [place] [address] Karen Watts MD [address] [place] [phone] [email or web address] Scheduled Procedures Name Priority Associated Diagnoses [...] BI US BREAST OUTSIDE (NO INTERPRETATION) Routine 03/05/2025 12:00 AM EDT documented in this encounter Results * US Breast Outside (No Interpretation) (03/05/2025 12:00 AM EDT) Narrative [facility] IMG INTERFACES - 03/12/2025 8:17 AM EDT This study is for PACS storage only and not for interpretation. Karen rocha MD IMG OUTSIDE IMAGING W/OUT INTERPRETATION Final Result [facility] IMG INTERFACES documented in this encounter Visit Diagnoses Not on filedocumented in this encounter Additional Health Concerns Assessment Noted Time PHQ-2 Depression Total Score: 0 02/20/20 1:05 PM EDT documented as of this encounter Care Teams Composite Assembler Relationship Specialty Start Date End Date Natalie Blevins MD [address] [place] [phone] PCP - General Internal Medicine 12/01/23 documented as of this encounter Additional Source Comments The information contained in this document represents components of the legal health record. It is not the complete legal health record.[facility]
--- OUTSIDE RECORDS SUMMARY | 2025-03-05 00:05 | XMS_ITS | Encounter Summary ---
Author Organization [facility] Address [address] [facility] [address] [place] [address] Phone Care Team Providers Care Ic Engineer Name Role Phone Natalie Blevins MD Primary Care Provider Encounter Details Date Type Department Care Team (Late st Contact Info) Description 03/05/2025 12:05 AM EDT Hospital Encounter [facility] [address] [place] [address] Karen Watts MD [address] [place] [address] [email or web address] Social History Tobacco Use Types Packs/Day [...] Description 03/25/2025 11:00 AM EST Pre-Admission Testing [facility] Pre-Procedure Evaluation Department Please See [place]oint[place] [phone] Karen Watts MD [address] [place] [phone] [email or web address] 03/29/2025 Hospital Encounter [facility] PERIOPERATIVE DEPT [address] [place] [phone] Karen Watts MD [address] [place] [address] [email or web address] 03/29/2025 Procedure Pass [facility] PERIOPERATIVE DEPT [address] [place] [phone] 03/29/2025 9:30 AM EST Procedure visit [facility] [address] [facility], [address] [place] [address] Karen Watts MD [address] [place] [address] [email or web address] Scheduled Procedures Name Priority Associated Diagnoses [...] US BREAST OUTSIDE (NO INTERPRETATION) Routine 03/05/2025 12:05 AM EDT documented in this encounter Results * US Breast Outside (No Interpretation) (03/05/2025 12:05 AM EDT) Narrative [facility] IMG INTERFACES - 03/12/2025 8:21 AM EDT This study is for PACS storage only and not for interpretation. Karen rocha MD IMG OUTSIDE IMAGING W/OUT INTERPRETATION Final Result [facility] IMG INTERFACES documented in this encounter Visit Diagnoses Not on filedocumented in this encounter Additional Health Concerns Assessment Noted Time PHQ-2 Depression Total Score: 0 02/20/20 1:05 PM EDT documented as of this encounter Care Teams Ic Engineer Relationship Specialty Start Date End Date Natalie Blevins MD [address] [place] [address] PCP - General Internal Medicine 12/01/23 documented as of this encounter Additional Source Comments The information contained in this document represents components of the legal health record. It is not the complete legal health record.[facility]
--- OUTSIDE RECORDS SUMMARY | 2025-03-12 15:20 | XMS_ITS | Encounter Summary ---
Author Organization [facility] Address [address] [place] [address] [place] [phone] Phone Care Team Providers Care Career Development Coordinator/Teacher Name Role Phone Natalie Blevins MD Primary Care Provider Cesilia Betancourt MD Unavailable Todd Priest MD Unavailable Encounter Details Date Type Department Care Team (Latest Contact Info) Description 03/12/2025 3:20 PM EDT - 03/12/2025 11:59 PM EDT Hospital Encounter [facility] [address] [place] [address] Karen Watts MD [address] [facility] [place] [address] [email or web address] Arrived Discharge Disposition: Home or Self Care Social History Tobacco Use Types Packs/Day Years [...] AM EDT documented as of this encounter Medications at Time of Discharge amitriptyline (ELAVIL) 10 MG tablet TAKE 1 TABLET (10 MG TOTAL) BY MOUTH NIGHTLY AT BEDTIME. TO CLARIFY THE DOSE SHOULD BE 10 MG NIGHTLY 90 tablet 1 01/15/2025 SUMAtriptan (TOSYMRA) 10 mg/actuation Hundred 10 mg by Nasal route daily as needed (Migraine). BRAND NAME MEDICALLY NECESSARY 6 each 5 02/20/2025 topiramate (TOPAMAX) 50 MG tablet Take 1 tablet (50 mg total) by mouth daily. 90 tablet 1 10/10/2024 albuterol 90 mcg/actuation inhaler Inhale 2 puffs every 6 hours by inhalation route. 05/02/2022 5 azelastine (ASTELIN) 137 mcg (0.1 %) nasal spray 2 sprays by Nasal route. 04/26/2023 5 busPIRone (BUSPAR) 7.5 MG tablet Take 7.5 mg by mouth. 03/09/2022 5 doxycycline hyclate (VIBRAMYCIN) 50 MG capsule 60 each, TAKE 1 CAPSULE BY MOUTH TWICE A DAY, 0 Refills, 07/01/21 20:31:00 EST, Partial fill upon patient request if the prescription is for a schedule II opioid drug. 07/01/2021 5 fluticasone propionate (FLONASE) 50 mcg/actuation nasal spray 1 spray by Nasal route. 5 loratadine (CLARITIN) 10 mg tablet Take 10 mg by mouth. 03/14/2020 5 mv,calcium,min/i quan/folic/vitK (MULTI FOR HER ORAL) Orally 5 documented as of this encounter Plan of Treatment Upcoming Encounters Date Type Department Care Team (Late st Contact Info) Description 03/25/2025 11:00 AM EST Pre-[place] [facility] [place] Department [place] [phone] Karen Watts MD [address] [place] [phone] [email or web address] 03/29/2025 Hospital Encounter [facility] [place] [place] [address] [place] [phone] Karen Watts MD [address] [place] [phone] [email or web address] 03/29/2025 Procedure Pass [facility] [place] [place] [address] [place] [phone] 03/29/2025 9:30 AM EST Procedure visit [facility] [address], [address] [place] [address] Karen Watts MD [address] [place] [phone] [email or web address] Scheduled Procedures Name Priority Associated Diagnoses Date/Ti [...] Date/Time Associated Diagnosis Comments BI MAMMOGRAM OUTSIDE WITH INTERPRETATION OR CONSULT Routine 03/12/2025 3:20 PM EDT Cancer documented in this encounter Results * (ABNORMAL) Mammogram Outside With Interpretation Or Consult (03/12/2025 3:20 PM EDT) 03/13/2025 10:4 1 AM EDT Impressions [facility] - 03/13/2025 2:16 PM EDT 1. Biopsy-proven malignancy in the upper outer right breast with associated open coil clip. Given dense breast tissue and patient age, breast MRI is recommended to evaluate extend of disease. 2. Benign right breast mass status post biopsy with associated butterfly clip. 3. No mammographic evidence of malignancy in the left breast. Findings and recommendations were discussed at the multidisciplinary oncology conference on 03/13/2025. BI-RADS 6 KNOWN BIOPSY PROVEN MALIGNANCY ATTESTATION: I, Dr. Kelvin Dee as teaching physician, have reviewed the images for this case and if necessary edited the report originally created by Chas Dietrich. Narrative [facility] - 03/13/2025 2:16 PM EDT BI MAMMOGRAM OUTSIDE WITH INTERPRETATION OR CONSULT Additional patient information: 44-year-old patient with a new diagnosis of right invasive ductal carcinoma, presents for oncologic management. COMPARISON: No relevant prior MGB imaging is available at time of dictation. Only the submitted outside imaging is used for comparison. TECHNIQUE: The imaging reviewed below was performed at an outside institution. [facility] facilities are not responsible for image quality, completeness of this examination, or accuracy of patient identity. At the request of the patient's referring clinician, we have been asked to interpret the examination(s) pertinent to facilitating breast care at [facility]. OUTSIDE IMAGING REVIEWED: Mammogram(s): - Bilateral screening mammogram (01/31/2025). Digital mammography and tomosynthesis were performed; the tomosynthesis images are available and were reviewed. - Right diagnostic mammogram (03/04/2025). Digital mammography and tomosynthesis were performed; the tomosynthesis images are available and were reviewed. - Right post-procedure mammogram (03/05/2025). Digital mammography and tomosynthesis were performed; the tomosynthesis images are available and were reviewed. Ultrasound(s): - Right diagnostic breast ultrasound (03/04/2025). - Right ultrasound-guided breast biopsy (03/05/2025). Ultrasound is an jumbo operator-dependent real-time examination and therefore no interpretation can be rendered on the submitted US imaging. Any US findings mentioned below are based only on what has been described in the outside imaging reports. MRI(s): - None. FINDINGS: SCREENING MAMMOGRAM (01/31/2025): Breast Composition: The breasts are heterogeneously dense, which may obscure small masses. Right: There is an asymmetry in the upper right breast at posterior depth. Left: No abnormal masses, suspicious calcifications, or other significant findings are identified mammographically in the left breast. RIGHT DIAGNOSTIC MAMMOGRAM (03/04/2025): There is a mass in the upper outer quadrant at posterior depth that persists on spot compression images, better seen in the full-field XCCL view. RIGHT DIAGNOSTIC ULTRASOUND (03/04/2025): Per outside facility reports, sonographic images show at 10:00, 10 cm from the nipple, there is a 7 x 6 x 4 mm hypoechoic irregular mass, likely correlating with the mammographic findings. RIGHT BREAST ULTRASOUND-GUIDED CORE NEEDLE BIOPSY AND POST-BIOPSY MAMMOGRAM (03/05/2025): *Ultrasound-guided core needle biopsy of an irregular mass with in the right breast at 10:00, 10 cm from the nipple with clip placement. Postbiopsy mammogram demonstrates a open coil-shaped tissue marker in appropriate position. *As described in the outside report, during the pre-procedure evaluation, a second smaller hypoechoic mass measuring 5 x 3 mm was identified at 10:00, 10 cm from the nipple, adjacent to the large mass. An ultrasound-guided biopsy with clip placement of this mass was performed on the same day. Post-biopsy mammogram demonstrate a butterfly-shape tissue marker in appropriate position. PATHOLOGY (PER OUTSIDE FACILITY; NO [facility] [place]VIEW AVAILABLE AT TIME OF THIS REPORT): *Breast, right, 10:00 mass, site A larger, core biopsy: - Invasive ductal carcinoma with lobular features, grade 2 - Ductal carcinoma in situ, nuclear grade 1. *Breast, right, 10:00 mass, site B smaller, core biopsy: - Benign breast tissue with columnar cell change and hyperplasia without atypia, stromal fibrosis, and sclerosing adenosis with focal microcalcifications. Procedure Note Kelvin Dee MD - 03/13/2025 BI MAMMOGRAM OUTSIDE WITH INTERPRETATION OR CONSULT Additional patient information: 44-year-old patient with a new diagnosisof right invasive ductal carcinoma, presents for oncologic management. COMPARISON: No relevant prior MGB imaging is available at time ofdictation. Only the submitted outside imaging is used for comparison. TECHNIQUE: The imaging reviewed below was performed at an outsideinstitution. [facility] facilities are not responsible for imagequality, completeness of this examination, or accuracy of patientidentity. At the request of the patient's referring clinician, we havebeen asked to interpret the examination(s) pertinent to facilitatingbreast care at [facility]. OUTSIDE IMAGING REVIEWED: Mammogram(s): - Bilateral screening mammogram (01/31/2025). Digital mammography andtomosynthesis were performed; the tomosynthesis images are available andwere reviewed. - Right diagnostic mammogram (03/04/2025). Digital mammography andtomosynthesis were performed; the tomosynthesis images are available andwere reviewed. - Right post-procedure mammogram (03/05/2025). Digital mammography andtomosynthesis were performed; the tomosynthesis images are available andwere reviewed. Ultrasound(s): - Right diagnostic breast ultrasound (03/04/2025). - Right ultrasound-guided breast biopsy (03/05/2025). Ultrasound is an jumbo operator-dependent real-time examination and therefore nointerpretation can be rendered on the submitted US imaging. Any USfindings mentioned below are based only on what has been [facility]. MRI(s): - None. FINDINGS: SCREENING MAMMOGRAM (01/31/2025): Breast Composition: The breasts are heterogeneously dense, which mayobscure small masses. Right: There is an asymmetry in the upper right breast at posterior depth. Left: No abnormal masses, suspicious calcifications, or other significantfindings are identified mammographically in the left breast. RIGHT DIAGNOSTIC MAMMOGRAM (03/04/2025): There is a mass in the upper outer quadrant at posterior depth thatpersists on spot compression images, better seen in the full-field XCCLview. RIGHT DIAGNOSTIC ULTRASOUND (03/04/2025): Per outside facility reports, sonographic images show at 10:00, 10 cm fromthe nipple, there is a 7 x 6 x 4 mm hypoechoic irregular mass, likelycorrelating with the mammographic findings. RIGHT BREAST ULTRASOUND-GUIDED CORE NEEDLE BIOPSY AND POST-BIOPSYMAMMOGRAM (03/05/2025): *Ultrasound-guided core needle biopsy of an irregular mass with in theright breast at 10:00, 10 cm from the nipple with clip placement.Postbiopsy mammogram demonstrates a open coil-shaped tissue marker inappropriate position. *As described in the outside report, during the pre-procedure evaluation,a second smaller hypoechoic mass measuring 5 x 3 mm was identified at10:00, 10 cm from the nipple, adjacent to the large mass. Anultrasound-guided biopsy with clip placement of this mass was performed onthe same day. Post-biopsy mammogram demonstrate a butterfly-shape tissuemarker in appropriate position. PATHOLOGY (PER OUTSIDE FACILITY; NO [facility] [place] AVAILABLE AT TIME OF THISREPORT): *Breast, right, 10:00 mass, site A larger, core biopsy: - Invasive ductal carcinoma with lobular features, grade 2 - Ductal carcinoma in situ, nuclear grade 1. *Breast, right, 10:00 mass, site B smaller, core biopsy: - Benign breast tissue with columnar cell change and hyperplasia withoutatypia, stromal fibrosis, and sclerosing adenosis with focalmicrocalcifications. IMPRESSION: 1. Biopsy-proven malignancy in the upper outer right breast withassociated open coil clip. Given dense breast tissue and patient age,breast MRI is recommended to evaluate extend of disease. 2. Benign right breast mass status post biopsy with associated butterflyclip. 3. No mammographic evidence of malignancy in the left breast. Findings and recommendations were discussed at the multidisciplinaryoncology conference on 03/13/2025. BI-RADS 6 KNOWN BIOPSY PROVEN MALIGNANCY ATTESTATION: I, Dr. Kelvin Dee as teaching physician, have reviewedthe images for this case and if necessary edited the report originallycreated by Chas Dietrich. Karen TOBIAS OUTSIDE IMAGING W/ INTERPRETATION Final Result [address] [address] documented in this encounter Visit Diagnoses Diagnosis Cancer Other malignant neoplasm of unspecified site documented in this encounter Additional Health Concerns Assessment Noted Time PHQ-2 Depression Total Score: 0 02/20/20 24 1:05 PM EDT documented as of this encounter Care Teams Career Development Coordinator/Teacher Relationship Specialty Start Date End Date Natalie Blevins MD [address] [place] [address] PCP - General Internal Medicine 12/01/23 Cesilia Betancourt MD [address] [place] [phone] [email or web address] 03/12/25 Todd Priest MD [address] [place] [phone] [email or web address] Breast Surgery 03/12/25 documented as of this encounter Additional Source Comments The information contained in this document represents components of the legal health record. It is not the complete legal health record.[facility]
--- OUTSIDE RECORDS SUMMARY | 2025-03-13 14:00 | XMS_ITS | Encounter Summary ---
Author Organization [facility] Address [address] [place] [address] [place] [address] Phone Care Team Providers Care Sharepoint Consultant Name Role Phone Natalie Blevins MD Primary Care Provider Cesilia Betancourt MD Unavailable [phone] Todd Priest MD Unavailable Reason for Referral * Consultation (Within 2 weeks) - New Request Specialty Diagnoses / Procedures Referred By Contac t Referred To Contact Medical Oncology Diagnoses unknown Karen Watts MD [address] [place] [address] Phone: tel: fax: mailto:[email or web address] [address] Phone: tel: Referral ID Status Reason Start Date Expiration Date V isits Requested Visits Authorized [id number] New Request 03/13/2025 03/13/2026 1 1 * Consultation (Within 2 weeks) - New Request Specialty Diagnoses / Procedures Referred By Contac t Referred To Contact Federico Tyler MD [address] [place] [phone] Phone: tel: fax: mailto:[email or web address] Referral ID Status Reason Start Date Expiration Date V isits Requested Visits Authorized [id number] New Request 03/13/2025 03/13/2026 1 1 * MRI/CAT Scan - Authorized Specialty Diagnoses / Procedures Referred By Contac t Referred To Contact Radiology Diagnoses Invasive ductal carcinoma of breast, female, right Procedures MRI Breast (Bilateral) CHG MRI BREAST WITHOUT CONTRAST MATERIAL BILATERAL CHG MRI BREAST WITHOUT&WITH CONTRAST W/CAD BILATERAL CHG MRI BREAST W/OUT&WITH CONTRAST W/CAD UNILATERAL Federico Tyler MD [address] [facility] 7 [place] [address] Phone: tel: fax: mailto:[email or web address] Referral ID Status Reason Start Date Expiration Date V isits Requested Visits Authorized [id number] Authorized 03/13/2025 05/14/2025 1 1 Encounter Details Date Type Department Care Team ([facility] st Contact Info) Description 03/13/2025 2:00 PM EDT Office Visit [facility] [address] [facility], 9th Floor, [address] [place] [address] Karen Watts MD [address] [facility], [address] [place] [address] [email or web address] Invasive ductal carcinoma of breast, female, right (Primary Dx) Social History Tobacco Use Types Packs/Day Years [...] AM EDT documented as of this encounter Last Filed Vital Signs Vital Sign Reading Time Taken Comments Blood Pressure 102/68 03/13/2025 2:02 PM EDT Pulse 75 03/13/2025 2:02 PM EDT Temperature 36.4 C (97.6 F) 03/13/2025 2:02 PM EDT Respiratory Rate 18 03/13/2025 2:02 PM EDT Oxygen Saturation 100% 03/13/2025 2:02 PM EDT Inhaled Oxygen Concentration - - Weight 59.6 kg (131 lb 6.4 oz) 03/13/2025 2:02 P M EDT Height 165.5 cm (5' 5.16 ) 03/13/2025 2:02 PM ED T Body Mass Index 21.76 03/13/2025 2:02 PM EDT documented in this encounter Progress Notes * Karen Watts MD - 03/13/2025 2:00 PM EDT [facility] Breast Surgical Oncology Consult Patient Name: Layla Quinn : 1980 Date of Service: 03/13/2025 Provider Name: Karen Holcomb MD ? CC: Layla Quinn is a 44 y.o. woman referred by Dr. Blevins, Natalie Argueta MD for consultation regarding management of newly diagnosed right breast cancer HPI: Layla Quinn is a 44 y.o. woman with screen-detected right breast cancer who presents for surgical consultation. She has been undergoing high rescreening with mammograms and breast MRIs due to family history. The patient herself had not noticed any breast masses, skin changes, nipple discharge orretraction, or other breast complaints. She notes since her biopsy she can now feel a R breast mass. Her work-up to date is detailed below: Imagin08/20/2024 breast MRI: Negative 01/31/2025 screening mammogram: New asymmetry superior right breast posterior depth/lower axillary region. Left breast negative 03/04/2025 right diagnostic mammogram and ultrasound: Heterogeneously dense. Right breast 10:00 N100.7 x 0.6 x 0.4 cm hypoechoic solid mass Pathology: 03/05/2025 right breast mass 10:00 site a larger (open coil clip_: Invasive ductal carcinoma with lobular features, grade 2, ER positive MN positive HER2 negative (0), Ki-67 30 to 45%. DCIS, grade 1 Right breast mass 10:00 site B small (butterfly clip - this mass was seen at time of biopsy, not initial diag US): Benign breast tissue with columnar cell change and hyperplasia without atypia, stromal fibrosis, sclerosing adenosis with focal micro calcifications She comes for discussion of management options. 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 TO CLARIFY THE DOSE SHOULD BE 10 MG NIGHTLY SUMAtriptan (TOSYMRA) 10 mg/actuation [place] 10 mg by Nasal route daily as needed (Migraine). BRAND NAME MEDICALLY NECESSARY topiramate (TOPAMAX) 50 MG tablet Take 1 tablet (50 mg total) by mouth daily. No past surgical history on file. No past medical history on file. Patient Active Problem List Diagnosis Nontoxic multinodular goiter ALLERGIES: Allergies Allergen Reactions Pepper (Genus Capsicum) Nausea Only Red pepper causes severe GI upset, nausea, vomiting and diarrhea ROS: General: no weight loss/gain, no fevers, no chills, no change in appetite HEENT: no neck swelling, no neck stiffness, no hoarseness, no hearing loss Resp: no cough, no wheezing, no hemoptysis Cardiac: no chest pain/pressure, no palpitations, no orthopnea, no PND Gastrointestinal: no nausea, no vomiting, no diarrhea, no constipation, no bleeding Neurologic: no seizures, no headache, no weakness Lymph nodes: no enlarged lymph nodes Musculoskeletal: No back pain, no neck pain, no leg pain, no arm pain Urologic: No hematuria, no dysuria, no polyuria Hematologic: No bruising, no bleeding Exposures: No sick contacts, no recent travel Psych: no depression, no change in sleep patterns PHYSICAL EXAM BP 102/68 (BP Location: Right arm, Patient Position: Sitting, Cuff Size: Medium) Pulse 75 Temp 36.4 ??C (97.6 ??F) (Temporal) Resp 18 Ht 165.5 cm (5' 5.16 ) Wt 59.6 kg (131 lb 6.4 oz) SpO2 100% BMI 21.76 kg/m?? Constitutional: well developed, well nourished, no acute distress Psychiatric: Alert and oriented x 3 Breasts: Exam performed in sitting and supine positions Symmetric in size and contour, no skin changes, no skin dimpling, small-med, minimal ptosis Nipples: everted, no spontaneous discharge or erosion Palpation - R: vaguel R upper outer breast mass, mobile Palpation - L: no masses Lymph nodes: Axilla: R: no enlarged nodes L: no enlarged nodes Supraclavicular: no enlarged nodes Cervical: no enlarged nodes ?Cardiovascular: RRR Respiratory: unlabored Extremities: no edema IMPRESSION: Ms. Layla Quinn is a 44 y.o. woman with screen-detected right breast cT1bN0 invasive ductal carcinoma with lobular features, ER + MN + HER2-, with imaging suggestive of unifocal 0.7cm mass at 10 o'clock 10cm from the nipple, who is presenting for surgical consultation. She was seen in a multidisciplinary session with members of the Breast Imaging team I reviewed her images and pathology results in conjunction with her physical exam and history. We reviewed the nature and my clinical assessment of her cancer. I reviewed her exam, imaging, and pathology findings at length with her. We discussed management options. It was advised that with thecurrently known information, management options include breast conservation, consisting of lumpectomy and subsequent breast irradiation, versus total mastectomy with or without reconstruction. The details of each were described, and the lack of a survival difference and the risk of local recurrencewith both were discussed. If she opts for BCT, would recommend breast MRI for extent of disease andto screen other breast. The patient has been thinking about this and strongly prefers mastectomy. She is interested in immediate reconstruction and will see one of the plastic surgeons to discuss options further. She would prefer nipple preservation if feasible. Her imaging studies suggest a reasonable distance between the tumor and the nipple. We discussed that removal of the nipple would be required if it is ischemic, heals poorly, or is found to have tumor involvement. We discussed that although the nipple is retained, nipple sensation is lost. She understands all this, and wishes to proceed with an attempt at nipple preservation. Management of the axilla was also discussed. The use of sentinel node biopsy for axillary staging was reviewed. She is considering bilateral mastectomies for risk reduction and symmetry. We discussed the pros and cons of contralateral prophylactic mastectomy. We discussed that this approach clearly minimizes risk and has been found to reduce anxiety about development of breast cancer. I explained that contralateral mastectomy would not be expected to improve her overall survival and would increase her riskof complications. We reviewed the difficulties surrounding breast reconstruction and the negative psychological and physical impact of losing both breasts. She has considered these issues and still feels that bilateral mastectomy is her choice. We discussed that additional treatment recommendations will be based on her final pathology. She would like to proceed with care at [facility] and will return to the Breast Center postoperatively. The patient expressed understanding of the treatment plan, and indicated interest in proceeding with bilateral NSM + IBR, right SLNB. Informed consent was obtained today. All questions were answered, and the patient was encouraged to contact our office should she have any questions or concerns in the interim. PLAN: - Bilateral NSM + IBR, right SLNB. Plastics consult - Genetic testing ordered. - Will forgo breast MRI as patient would like to proceed with bilateral mastectomy. - PACT referral I personally spent a total of at least 65 minutes on care for this patient on the date of the encounter. Karen Estes MD 03/13/2025 [facility] documented in this encounter Plan of Treatment Upcoming Encounters Date Type Department Care Team (Late st Contact Info) Description 03/25/2025 11:00 AM EST Pre-Admission Testing [facility] Pre-Procedure Evaluation Department [place] [address] Karen Watts MD [address] [place] [phone] [email or web address] 03/29/2025 Hospital Encounter [facility] PERIOPERATIVE DEPT [address] [place] [phone] Karen Watts MD [address] [place] [phone] [email or web address] 03/29/2025 Procedure Pass [facility] PERIOPER[facility]IVE DEPT [address] [place] [phone] 03/29/2025 9:30 AM EST Procedure visit Replaced by [facility] [address] [facility], [address] [place] [address] Karen Watts MD [address] [place] [phone] [email or web address] Scheduled Orders Name Type Priority Associated Diagnoses Orde r Schedule CANCER CENTER GERMLINE TESTING ([facility]ER [facility] ONLY) Lab Routine Invasive ductal carcinoma of breast, female, right Expected: 03/13/2025, Expires: 03/13/2026 MRI Breast (Bilateral) Imaging Routine Invasive ductal carcinoma of breast, female, right Expected: 03/13/2025, Expires: 06/13/2025 Scheduled Procedures Name Priority Associated Diagnoses Date/Ti me MASTECTOMY Malignant neoplasm of right female breast, unspecified estrogen receptor status, unspecified site of breast BIOPSY SENTINEL LYMPH NODE BREAST Malignant neoplasm of right female breast, unspecified estrogen receptor status, unspecified site of breast IMMEDIATE RECONSTRUCTION GLENN AST WITH IMPLANT Malignant neoplasm of right female breast, unspecified estrogen receptor status, unspecified site of breast Scheduled Referrals Name Type Priority Associated Diagnoses Order Schedule Ambulatory referral to [facility] Surgery Outpatient Referral Routine Ordered: 03/13/2025 Ambulatory referral to [facility] Oncology Supportive Care Services Outpatient Referral Routine Ordered: 03/13/2025 documented as of this encounter Visit Diagnoses Diagnosis Invasive ductal carcinoma of breast, female, right- Primary documented in this encounter Additional Health Concerns Assessment Noted Time PHQ-2 Depression Total Score: 0 02/20/20 24 1:05 PM EDT documented as of this encounter Care Teams Sharepoint Consultant Relationship Specialty Start Date End Date Natalie Belvins MD [address] [place] [phone] PCP - General Internal Medicine 12/01/23 Cesilia Betancourt MD [address] [place] [address] [email or web address] Medical Oncology 03/12/25 Todd Priest MD [address] [place] [address] [email or web address] Breast Surgery 03/12/25 documented as of this encounter Additional Source Comments The information contained in this document represents components of the legal health record. It is not the complete legal health record.[facility]
--- NOTE | ~2025-03-15 | MM_ITS ---
EXAMINATION: DXA BONE DENSITY AXIAL HISTORY: R63.4 FAMILY HX OF OSTEOPOROSIS TECHNIQUE: Slanissue Dual energy absorptiometry (DEXA) of the lumbar spine, total left hip, and femoral neck was performed. COMPARISON: There are no prior studies for comparison. FINDINGS: The bone mineral density of the lumbar spine is 1.316 g/cm2, corresponding to a T-score of 1.1, and a Z-score of 1.4. This is indicative of normal bone mineral density. The bone mineral density of the left total hip is 1.001 g/cm2, corresponding to a T-score of -0.1, and a Z-score of 0.4. This is indicative of normal bone mineral density. The bone mineral density of the left femoral neck is 0.991 g/cm2, corresponding to a T-score of -0.3, and a Z-score of 0.4. This is indicative of normal bone mineral density. FRACTURE RISK: The FRAX index suggests a risk of major osteoporotic fracture of 4.4%, and of hip fracture 0.1%. MM/XR DEXA axial skeleton IMPRESSION: Based on bone mineral density, and according to World Health Organization (WHO) criteria, the diagnosis is consistent with normal bone mineral density. Statistically, 68% of repeat scans fall within 1 SD (+/- 0.010 g/cm2 for AP spine L1-L4) and 1 SD (+/- 0.012 g/cm2 for femur total) FRAX is a trademark of the [employer], a World Health Organization (WHO) Collaborating Center. Electronically signed by: Corbin Prasad MD 03/15/2025 10:47 AM EDT
--- OUTSIDE RECORDS SUMMARY | 2025-03-15 11:08 | XMS_ITS | Clinical Summary ---
Author Organization [facility] Address [address] [place] [address] Care Team Providers Care Route Rider Name Role Phone Natalie Blevins Primary Care Provider [phone] Allergies Active Allergy Reactions Criticality Noted Date [...] mouth daily. Active predniSONE (DELTASONE) 20 mg tabletIndicatio ns:Adverse effect of drug, subsequent encounter Take 0.5 tablets (10 mg total) by mouth once a day. prednisone 30 mg 11 hours, then 7 hours and 3 hours prior to vaccine 9 tablet 5 Active mometasone (ELOCON) 0.1 % ointmentIndicat ions:Dermatitis Apply topically to the affected area once a day. 45 g 1 5 Active levocetirizine (XYZAL) 5 mg tabletIndicatio ns:Adverse effect of drug, subsequent encounter,Seaso nal allergic rhinitis due to pollen Take 1 tablet (5 mg total) by mouth every evening. 30 tablet 11 5 Active Active Problems Problem Noted Date Diagnosed Date Adverse reaction to vaccine, sequela 04/26/2023 Seasonal allergic rhinitis due to pollen 023 Encounters Date Type Department Care Team Description 02/06/2025 10:00 AM EDT Office Visit [facility] [address] Allergy/Immunology [address] [place] [address] Kylee Hernandez DO Dermatitis (Primary Dx); Adverse effect of drug, [...] Description 02/12/2026 10:00 AM EDT Office Visit [facility] [address] Allergy/Immunology [address] [place] [phone] Kylee Hernandez DO [address] [place] [address] Health Maintenance Due Date Last Done Comments Cervical Cancer Screening 1980 HIV Screening 1980 HPV and Pap Smear 1980 Hepatitis C Screening 1980 Pap Smear 1980 Varicella Vaccines (1 of 2 - 13+ 2-dose series) 1993 Hepatitis B Vaccines (1 of 3 - 19+ 3-dose series) 09/19/1999 Mammogram 2020 Alcohol/Substance Use Screening 05/16/2024 Depression Screening and Follow-Up 05/16/2024 Social [employer] [facility] [employer] Annual Screening 05/16/2024 COVID-19 Vaccine (2024- season) 2025 04/28/2023, 04/02/2022, 11/06/2021, Additional history [...] age to complete this topic Insurance DR [id number] [employer] [address] [facility] HSNO/FREE CARE Care Teams Route Rider Relationship Specialty Start Date End Date Natalie Blevins [address] [place] [address] PCP - General Family Medicine 03/04/23
--- OUTSIDE RECORDS SUMMARY | 2025-03-15 11:08 | XMS_ITS | Encounter Summary ---
Author Organization [facility] Address [address] [facility] [address] [place] [address] Phone Care Team Providers Care Pulp Mixer Name Role Phone Natalie Blevins MD Primary Care Provider Cesilia Betancourt MD Unavailable [phone] Todd Priest MD Unavailable Reason for Referral * - New Request Specialty Diagnoses / Procedures Referred By Contnoel t Referred To Contact Radiology Diagnoses Malignant neoplasm of right female breast, unspecified estrogen receptor status, unspecified site of breast Procedures NM Lymphoscintigraphy Breast Injection without Imaging Karen Watts MD [address] [place] [address], [facility] [address] [place] [address] Phone: tel: fax: mailto:[email or web address] Referral ID Status Reason Start Date Expiration Date V isits Requested Visits Authorized [id number] New Request 03/15/2025 1 1 Encounter Details Date Type Department Care Team (Late st Contact Info) Description 03/15/2025 Orders Only [facility] Surgical Oncology [address] [place] [address], 4th Floor, [address] [place] [address] Karen Watts MD [address] [place], [place] [address] [address] [email or web address] Malignant neoplasm of right female breast, unspecified estrogen receptor status, unspecified site of breast (Primary Dx) Social History Tobacco Use Types [...] Description 03/25/2025 11:00 AM EST Pre-Admission Testing [facility] Pre-Procedure Evaluation Department Please [place] [phone] Karen Watts MD [address] [place] [phone] [email or web address] 03/29/2025 Hospital Encounter [facility] PERIOPERATIVE DEPT [address] [place] [phone] Karen Watts MD [address] [place] [phone] [email or web address] 03/29/2025 Procedure Pass [facility] PERIOPERATIVE DEPT [address] [place] [phone] 03/29/2025 9:30 AM EST Procedure visit [facility] [address] [facility], [address] [place] [address] Karen Watts MD [address] [facility], [address] [place] [address] [email or web address] Scheduled Orders Name Type Priority Associated Diagnoses Orde r Schedule NM Lymphoscintigraphy Breast Injection without Imaging Imaging Routine Malignant neoplasm of right female breast, unspecified estrogen receptor status, unspecified site of breast Expected: 03/29/2025, Expires: 06/15/2025 Scheduled Procedures Name Priority Associated Diagnoses Date/Ti [...] of breast documented as of this encounter Visit Diagnoses Diagnosis Malignant neoplasm of right female breast, unspecified estrogen receptor status, unspecified site of breast- Primary documented in this encounter Additional Health Concerns Assessment Noted Time PHQ-2 Depression Total Score: 0 02/20/20 24 1:05 PM EDT documented as of this encounter Care Teams Pulp Mixer Relationship Specialty Start Date End Date Natalie Blevins MD [address] [place] [address] PCP - General Internal Medicine 12/01/23 Cesilia Betancourt MD [address] [place] [address] [email or web address] Medical Oncology 03/12/25 Todd Priest MD [address] [place] [phone] [email or web address] Breast Surgery 03/12/25 documented as of this encounter Additional Source Comments The information contained in this document represents components of the legal health record. It is not the complete legal health record.[facility]
--- OUTSIDE RECORDS SUMMARY | 2025-03-15 11:08 | XMS_ITS | Data Portability ---
Author Organization L[facility] Palencia s, [address] Address [address] [place] [address] Assessment No assessment recorded. Plan of Treatment Reminders Order Date Submit Date Provider Last Modified By Organization Details Last Modified Time Details Appointments None recorded. Lab rapid strep group A, throat 2023 024 [email or web address] _[facility], [address] [place] [address], [phone], 4 10:42:46 SARS CoV 2 (COVID-19) Ag, QL, IA, upper respiratory specimen 2023 024 [facility], [address] [place] [address], [phone], 4 10:42:48 rapid flu (A+B) 2021 022 [email or web address] 05 [facility], [address] [place] [address], [phone], 2 12:08:31 Referral None recorded. Procedures None recorded. Surgeries None recorded. Imaging None recorded. Medication Orders Paxlovid 300 mg (150 mg x 2)-100 mg tablets in a dose pack 2023 024 [facility]/Pharmacy #1230, [address] [facility], [place], [address], 4 10:42:46 benzonatate 100 mg capsule 2021 [facility], [address] [place], [address], 4 09:49:26 Tamiflu 75 mg capsule 2021 [address], [address] [place], [address], 4 09:49:35 albuterol sulfate HFA 90 mcg/actuati on aerosol inhaler [address]/Pharmacy #1230, [address] [place], [address], 4 09:54:24 Patient TargetsNo targets recorded. Patient Instructions Encounter Date Encounter Id Patient Instructions Last Modified By Organization Details Last Modified Time 05/02/2022 [id number] influenza (flu): care instructions [email or web address] Not available 05/02/2022 12:08:31 Go to the [facility] emergency department if you develop [...] without a prescription. Drink plenty of water. [email or web address] Not available 05/02/2022 13:05:18 01/25/2024 [id number] Acute Sinusitis: Care Instructions [email or web address] Not available 01/25/2024 10:42:44 You have been [...] this over a decongestant. 3. Saline Nasal Bath 4. Salt Water Gargles. I would be [...] AND HUMAN SERVICES Thank you for visiting [facility] today, please feel free to call our office you have any questions or concerns. [email or web address] Not available 01/25/2024 10:42:42 Reason for Referral None Reported. Results Created Date Observation Date Name Description Value Unit Range Abnormal Flag Note LastModifiedBy Organization Detail LastModifiedTime 05/02/20 22 05/02/2022 rapid flu (A+B) Unknown Analyte Normal = Negati ve Not Available [address], [address], 05/02/2022 11:39:58 05/02/20 22 05/02/2022 rapid flu (A+B) Unknown Analyte positi ve Not Available [address], [address], 05/02/2022 11:39:58 05/02/20 22 05/02/2022 rapid flu (A+B) Unknown Analyte Normal = Negati ve Not Available [address] [place] [address], [address], 05/02/2022 11:39:58 05/02/20 22 05/02/2022 rapid flu (A+B) Unknown Analyte negati ve Not Available [address] [place] [address], [address], 05/02/2022 11:39:58 01/25/20 24 01/25/2024 SARS CoV 2 (COVI D-19) Ag, QL, IA, upper respi rator y speci men Unknown Analyte positi ve Not Available [address] [place], [address], 01/25/2024 09:56:55 01/25/20 24 01/25/2024 SARS CoV 2 (COVI D-19) Ag, QL, IA, upper respi rator y speci men Unknown Analyte yes Not Available 20999_ [facility] [address] [place], [address], 01/25/2024 09:56:55 01/25/20 24 01/25/2024 rapid strep group A, throa t Unknown Analyte negati ve Not Available [address] [place], [address], 01/25/2024 09:56:49 01/25/20 24 01/25/2024 rapid strep group A, throa t Unknown Analyte yes Not Available _ [facility] [address] [place], [address], 01/25/2024 09:56:49 Result Notes None recorded. Problems Name Problem SNOMED Code Status Onset Date Resolution Date Notes Provider Name and Address Organization Details Recorded Time Depressive disorder 42620216 Active Pari [place] Rose[place] null, [place] - [facility] 09:50:43 Migraine 96306151 Active 022 SAMMI DEPINTO null, [place] - [facility] 11:37:59 Goiter 3854824 Active 022 SAMMI DEPINTO null, [place] - [...] Name and Address Organization Details Recorded Time 662245 tree and shrub pollen environme nt,medica tion [...] Updated DateTime 4 165.1 cm 19.1 kg/m2 01754.1 2 g 97.9 [degF] 100 % 100 [...] Updated DateTime 2 165.1 cm 19 kg/m2 48050.5 3 g 4 98 % 98 % [...] ICD10 Code Diagnosis IMO Codes Diagnosis Note [id number] _[address] [place] [address] 09/13/2021 09:08:24 09/13/2021 10:35:40 [id number] LAVERN Vyas [address] [place] [address] 05/02/2022 10:07:30 05/02/2022 12:19:56 Influenza caused by Influenza A virus 623822796 J09.X2 [id number] LAVERN LARIOS [address] [facility] [place] [address] 01/25/2024 09:26:14 01/25/2024 10:45:01 COVID-19 959740227 U07.1 Health Concerns Section Related Observation LastModified by Organization Detai ls LastModified Time None Recorded Concern Status LastModified by Organization Details LastModified Time None Recorded Advance Directives Directive None Recorded Payers Insurance Date Sequence Insurance Name Policy Number Policy Roman Covered Member ID Roman Member ID Guarantor Name 02/09/2024 1 [employer] [place] [id number] Layla Kai [id number] Layla Kai 02/09/[address] [facility] [id number] Layla Kai [id number] Layla Kai 02/09/2024 2 [place] [facility] Layla Kai [id number] Layla Kai 02/09/[address] [facility] (PPO) [id number] Layla Kai [id number] Layla Kai Notes Date Note Type Note Provider Name and Address Organization Details Recorded Time 05/02/2022 text/html CongestionReport ed by PatientPt reports mild cough for about 2 weeks that was improved. Within the last 48 hours, developed sweats, chills, congestion, body aches, worsening cough all the sudden. Reports no SOB, wheezing, n/v/d. No known exposures. LAVERN Vyas [address] [place], [address], [place] - [facility] 05/02/2022 13:05:44 01/25/2024 text/html Sinus Complaints UCReported by [email or web address] y.o female pt presents with congestion, sore throat x 3 days. Pt denies chest pain or SOB. LAVERN LARIOS [address] [place], [address], [place] - [facility] 01/25/2024 13:17:49 OBGyn Episode No OBEpisode recorded.
--- OUTSIDE RECORDS SUMMARY | 2025-03-15 11:08 | XMS_ITS | Encounter Summary ---
Author Organization [facility] Address [address] [facility] [address] [place] [address] Phone Care Team Providers Care Electrician Elevator Maintenance Name Role Phone Natalie Blevins MD Primary Care Provider Cesilia Betancourt MD Unavailable [phone] Todd Priest MD Unavailable Encounter Details Date Type Department Care Team (Late st Contact Info) Description 03/12/2025 Ancillary Orders [facility] General Imaging [address] [place] [address] Karen Watts MD [address] [place] [address] [email or web address] Social History Tobacco Use Types Packs/Day [...] Description 03/25/2025 11:00 AM EST Pre-Admission Testing [facility] Pre-Procedure Evaluation Department [place] [address] Karen Watts MD [address] [place] [address] YEYO@[email or web address] 03/29/2025 Hospital Encounter [facility] PERIOPERATIVE DEPT [address] [place] [phone] Karen Watts MD [address] [place] [address] YEYO@[email or web address] 03/29/2025 Procedure Pass [facility] PERIOPERATIVE DEPT [address] [place] [phone] 03/29/2025 9:30 AM EST Procedure visit [facility] [facility] [address] [place] [address], [address] [place] [address] Karen Watts MD [address] [place] [address] YEYO@[email or web address] Scheduled Procedures Name Priority Associated Diagnoses Date/Ti [...] of breast documented as of this encounter Results * Mammogram Outside (No Interpretation) (03/04/2025 12:00 AM EDT) Narrative [facility] IMG INTERFACES - 03/12/2025 8:21 AM EDT This study is for PACS storage only and not for interpretation. Karen Barbara rocha MD IMG OUTSIDE IMAGING W/OUT INTERPRETATION Final Result [facility] IMG INTERFACES documented in this encounter Visit Diagnoses Not on filedocumented in this encounter Additional Health Concerns Assessment Noted Time PHQ-2 Depression Total Score: 0 02/20/20 24 1:05 PM EDT documented as of this encounter Care Teams Electrician Elevator Maintenance Relationship Specialty Start Date End Date Natalie Blevins MD [address] [place] [address] PCP - General Internal Medicine 12/01/23 Cesilia Betancourt MD [address] [place] [address] [email or web address] Medical Oncology 03/12/25 Todd Priest MD [address] [place] [address] [email or web address] u Breast Surgery 03/12/25 documented as of this encounter Additional Source Comments The information contained in this document represents components of the legal health record. It is not the complete legal health record.[facility]
--- OUTSIDE RECORDS SUMMARY | 2025-03-15 11:08 | XMS_ITS | Encounter Summary ---
Author Organization [facility] Address [address] [facility] [address] [place] [address] Phone Care Team Providers Care Classified Ad Clerk Name Role Phone Natalie Blevins MD Primary Care Provider Cesilia Betancourt MD Unavailable [phone] Todd Priest MD Unavailable Encounter Details Date Type Department Care Team (Late st Contact Info) Description 03/12/2025 Ancillary Orders [facility] General Imaging [address] [place] [address] Karen Watts MD [address] [place] [address] YEYO@[email or web address] Social History Tobacco Use Types Packs/Day Years [...] Description 03/25/2025 11:00 AM EST Pre-Admission Testing [facility] Pre-Procedure Evaluation Department [place] [address] Karen Watts MD [address] [place] [address] YEYO@[facility] 03/29/2025 Hospital Encounter [facility] PERIOPERATIVE DEPT [address] [place] [phone] Karen Watts MD [address] [place] [address] YEYO@[facility] 03/29/2025 Procedure Pass [facility] PERIOPERATIVE DEPT [address] [place] [phone] 03/29/2025 9:30 AM EST Procedure visit [facility] Center [address] [place] [address], [address] [place] [address] Karen Watts MD [address] [place] [address] YEYO@[email or web address] Scheduled Procedures Name Priority Associated [...] documented as of this encounter Results * MRI Breast Outside (No Interpretation) (08/20/2024 12:00 AM EDT) Narrative [facility] IMG INTERFACES - 03/12/2025 8:22 AM EDT This study is for PACS storage only and not for interpretation. Karen Barbara rocha MD IMG OUTSIDE IMAGING W/OUT INTERPRETATION Final Result [facility] IMG INTERFACES documented in this encounter Visit Diagnoses Not on filedocumented in this encounter Additional Health Concerns Assessment Noted Time PHQ-2 Depression Total Score: 0 02/20/20 24 1:05 PM EDT documented as of this encounter Care Teams Classified Ad Clerk Relationship Specialty Start Date End Date Natalie Blevins MD [address] [place] [address] PCP - General Internal Medicine 12/01/23 Cesilia Betancourt MD [address] [place] [address] [email or web address] Medical Oncology 03/12/25 Todd Priest MD [address] [place] [address] [email or web address] u Breast Surgery 03/12/25 documented as of this encounter Additional Source Comments The information contained in this document represents components of the legal health record. It is not the complete legal health record.[facility]
--- OUTSIDE RECORDS SUMMARY | 2025-03-15 11:08 | XMS_ITS | Encounter Summary ---
Author Organization [facility] Address [address] [place] [address] [place] [address] Phone Care Team Providers Care Fringe Knotter Name Role Phone HasmukhAnia NP Primary Care Provider [phone] Natalie Blevins MD Primary Care Provider Cesilia Betancourt MD Unavailable [phone] Todd Priest MD Unavailable Encounter Details Date Type Department Care Team (Late st Contact Info) Description 06/16/2023 Telephone [facility] Medical Specialties [address] [address] [place] [address] Corbin [email or web address] u Social History Tobacco Use Types Packs/Day [...] Upcoming Encounters Date Type Department Care Team ([facility] st Contact Info) Description 03/25/2025 11:00 AM EST Pre-Admission Testing [facility] Pre-Procedure Evaluation Department [place] [address] Karen Watts MD [address] [place] [address], [address] [address] YEYO@[facility] 03/29/2025 Hospital Encounter [facility] PERIOPERATIVE DEPT [address] [place] [phone] Karen Watts MD [address] [place] [address] YEYO@[facility] 03/29/2025 Procedure Pass [facility] PERIOPERATIVE DEPT [address] [place] [phone] 03/29/2025 9:30 AM EST Procedure visit [facility] [address] [place] [address], [address] [place] [address] Karen Watts MD [address] [place] [address] YEYO@[email or web address] Scheduled Procedures Name Priority Associated Diagnoses Date/Ti [...] on filedocumented in this encounter Care Teams Fringe Knotter Relationship Specialty Start Date End Date Ania Noe NP [address] [place] [address] PCP - General 07/02/21 11/30/23 Natalie Blevins MD [address] [place] [address] PCP - General Internal Medicine 12/01/23 Cesilia Betancourt MD [address] [place] [address] [place] [address] [email or web address] Medical Oncology 03/12/25 Todd Priest MD [address] [place] [address] [email or web address] u Breast Surgery 03/12/25 documented as of this encounter Additional Source Comments The information contained in this document represents components of the legal health record. It is not the complete legal health record.[facility]
--- OUTSIDE RECORDS SUMMARY | 2025-03-15 11:08 | XMS_ITS | Encounter Summary ---
Author Organization [facility] Address [address] [facility] [address] [place] [address] Phone Care Team Providers Care Epic Interface Analyst Name Role Phone Natalie Blevins MD Primary Care Provider Cesilia Betancourt MD Unavailable Todd Priest MD Unavailable Encounter Details Date Type Department Care Team (Late st Contact Info) Description 03/12/2025 Ancillary Orders [facility] General Imaging [address] [place] [address] Karen Watts MD [address] [place] [address] YEYO@[email or web address] Social History Tobacco Use Types Packs/Day [...] Description 03/25/2025 11:00 AM EST Pre-Admission Testing [facility] Pre-Procedure Evaluation Department [place] [address] Karen Watts MD [address] [place] [address] YEYO@[email or web address] 03/29/2025 Hospital Encounter [facility] PERIOPERATIVE DEPT [address] [place] [phone] Karen Watts MD [address] [place] [address] YEYO@[email or web address] 03/29/2025 Procedure Pass [facility] PERIOPERATIVE DEPT [address] [place] [phone] 03/29/2025 9:30 AM EST Procedure visit [facility] [address] [place] [address], [address] [place] [address] Karen Watts MD [address] [place] [address] YEYO@[email or web address] Scheduled Procedures Name Priority Associated Diagnoses Date/Ti [...] encounter Results * Mammogram Outside (No Interpretation) (02/09/2022 12:00 AM EDT) Narrative [facility] IMG INTERFACES - 03/12/2025 8:22 AM EDT This study is for PACS storage only and not for interpretation. Karen Barbara rocha MD IMG OUTSIDE IMAGING W/OUT INTERPRETATION Final Result [facility] IMG INTERFACES documented in this encounter Visit Diagnoses Not on filedocumented in this encounter Additional Health Concerns Assessment Noted Time PHQ-2 Depression Total Score: 0 02/20/20 24 1:05 PM EDT documented as of this encounter Care Teams Epic Interface Analyst Relationship Specialty Start Date End Date Natalie Blevins MD [address] [place] [address] PCP - General Internal Medicine 12/01/23 Cesilia Betancourt MD [address] [place] [address] [email or web address] Medical Oncology 03/12/25 Todd Priest MD [address] [place] [address] [email or web address] u Breast Surgery 03/12/25 documented as of this encounter Additional Source Comments The information contained in this document represents components of the legal health record. It is not the complete legal health record.[facility]
--- OUTSIDE RECORDS SUMMARY | 2025-03-15 11:08 | XMS_ITS | Encounter Summary ---
Author Organization [facility] Address [address] [place] [address] [place] [address] Phone Care Team Providers Care Registered Nurse Bone Marrow Transplant Name Role Phone Natalie Blevins MD Primary Care Provider Cesilia Betancourt MD Unavailable Todd Priest MD Unavailable Encounter Details Date Type Department Care Team (Late st Contact Info) Description 03/12/2025 Orders Only [facility], [facility], [facility] [address] [place] [address], [address] [place] [address] Luisa Neves@[email or web address] [email or web address].[facility] Malignant neoplasm of female breast, unspecified estrogen receptor status, unspecified laterality, unspecified site of breast (Primary Dx) Social [...] Description 03/25/2025 11:00 AM EST Pre-Admission Testing [facility] Pre-Procedure Evaluation Department [place] [address] Karen Watts MD [address] [place] [address] YEYO@[email or web address] 03/29/2025 Hospital Encounter [facility] PERIOPER[facility]IVE DEPT [address] [place] [phone] Karen Watts MD [address] [place] [address] YEYO@[email or web address] 03/29/2025 Procedure Pass [facility] PERIOPER[facility]IVE DEPT [address] [place] [phone] 03/29/2025 9:30 AM EST Procedure visit [facility] [address] [place] [address], [address] [place] [address] Karen Watts MD [address] [place] [address] YEYO@[email or web address] Scheduled Procedures Name Priority Associated Diagnoses [...] encounter Visit Diagnoses Diagnosis Malignant neoplasm of female breast, unspecified estrogen receptor status, unspecified laterality, unspecified site of breast- Primary documented in this encounter Additional Health Concerns Assessment Noted Time PHQ-2 Depression Total Score: 0 02/20/20 24 1:05 PM EDT documented as of this encounter Care Teams Registered Nurse Bone Marrow Transplant Relationship Specialty Start Date End Date Natalie Blevins MD [address] [place] [address] PCP - General Internal Medicine 12/01/23 Cesilia Betancourt MD [address] [place] [address] Dominguez@[email or web address].[facility] Medical Oncology 03/12/25 Todd Priest MD [address] [place] [address] [email or web address] u Breast Surgery 03/12/25 documented as of this encounter Additional Source Comments The information contained in this document represents components of the legal health record. It is not the complete legal health record.[facility]
--- OUTSIDE RECORDS SUMMARY | 2025-03-15 11:08 | XMS_ITS | Encounter Summary ---
Author Organization [facility] Address [address] [facility] [address] [place] [phone] Phone Care Team Providers Care Senior Logistics Manager Name Role Phone Natalie Blevins MD Primary Care Provider Cesilia Betancourt MD Unavailable Todd Priest MD Unavailable Encounter Details Date Type Department Care Team (Late st Contact Info) Description 03/12/2025 Ancillary Orders [facility] General Imaging [address] [place] [address] Karen Watts MD [address] [place] [address] [email or web address] Social History Tobacco Use Types Packs/Day [...] Description 03/25/2025 11:00 AM EST Pre-Admission Testing [facility] Pre-Procedure Evaluation Department Please [place] [address] Karen Watts MD [address] [place] [phone] [email or web address] 03/29/2025 Hospital Encounter [facility] PERIOPERATIVE DEPT [address] [place] [phone] Karen Watts MD [address] [place] [phone] [email or web address] 03/29/2025 Procedure Pass [facility] PERIOPERATIVE DEPT [address] [place] [phone] 03/29/2025 9:30 AM EST Procedure visit [facility] [address] [place] [address], [address] [place] [address] Karen Watts MD [address] [place] [phone] [email or web address] Scheduled Procedures Name Priority Associated Diagnoses [...] encounter Results * Mammogram Outside (No Interpretation) (01/31/2025 12:00 AM EDT) Narrative [facility] IMG INTERFACES - 03/12/2025 8:21 AM EDT This study is for PACS storage only and not for interpretation. Karen Barbara rocha MD IMG OUTSIDE IMAGING W/OUT INTERPRETATION Final Result [facility] IMG INTERFACES documented in this encounter Visit Diagnoses Not on filedocumented in this encounter Additional Health Concerns Assessment Noted Time PHQ-2 Depression Total Score: 0 02/20/20 24 1:05 PM EDT documented as of this encounter Care Teams Senior Logistics Manager Relationship Specialty Start Date End Date Natalie Blevins MD [address] [place] [phone] PCP - General Internal Medicine 12/01/23 Cesilia Betancourt MD [address] [place] [phone] [email or web address] Medical Oncology 03/12/25 Todd Priest MD [address] [place] [phone] [email or web address] Breast Surgery 03/12/25 documented as of this encounter Additional Source Comments The information contained in this document represents components of the legal health record. It is not the complete legal health record.[facility]
--- OUTSIDE RECORDS SUMMARY | 2025-03-15 11:08 | XMS_ITS | Clinical Summary ---
Author Organization [facility] Address [facility] [employer] [facility] [address] [place] [phone] Phone Care Team Providers Care Commercial Green Building Designer Name Role Phone Natalie Blevins MD Primary Care Provider Cesilia Betancourt MD Unavailable [phone] Todd Priest MD Unavailable Allergies Active Allergy Reactions Criticality Noted Date Comments Pepper (Genus Capsicum) Nausea Only 04/26/2023 Red pepper causes severe GI upset, nausea, vomiting and diarrhea Medications topiramate (TOPAMAX) 50 MG tablet Take 1 tablet (50 mg total) by mouth daily. 90 tablet 1 10/11/19 25 Active amitriptyline (ELAVIL) 10 MG tablet TAKE 1 TABLET (10 MG TOTAL) BY MOUTH NIGHTLY AT BEDTIME. TO CLARIFY THE DOSE SHOULD BE 10 MG NIGHTLY 90 tablet 1 01/16/20 25 Active SUMAtriptan (TOSYMRA) 10 mg/actuation Pollock 10 mg by Nasal route daily as needed (Migraine). BRAND NAME MEDICALLY NECESSARY 6 each 5 02/21/20 25 Active loratadine (CLARITIN) 10 mg tablet Take 10 mg by mouth. 03/14/20 20 025 Discontin ued(No longer taking) mv,calcium,min/ iron/folic/vitK (MULTI FOR HER ORAL) Orally 025 Discontin ued(No longer taking) albuterol 90 mcg/actuation inhaler Inhale 2 puffs every 6 hours by inhalation route. 05/02/20 Discontin ued(No longer taking) azelastine (ASTELIN) 137 mcg (0.1 %) nasal spray 2 sprays by Nasal route. 04/26/20 Discontin ued(No longer taking) busPIRone (BUSPAR) 7.5 MG tablet Take 7.5 mg by mouth. 03/09/20 Discontin ued(No longer taking) doxycycline hyclate (VIBRAMYCIN) 50 MG capsule 60 each, TAKE 1 CAPSULE BY MOUTH TWICE A DAY, 0 Refills, 07/01/21 20:31:00 EST, Partial fill upon patient request if the prescription is for a schedule II opioid drug. 07/01/19 Discontin ued(No longer taking) fluticasone propionate (FLONASE) 50 mcg/actuation nasal spray 1 spray by Nasal route. Discontin ued(No longer taking) SUMAtriptan (IMITREX) 25 MG tablet Orally Discontin ued(No longer taking) SUMAtriptan (TOSYMRA) 10 mg/actuation Pollock INSTILL 10 MG BY NASAL ROUTE DAILY NEEDED. INDICATIONS: BRAND NAME MEDICALLY NECESSARY 6 each 5 05/14/20 24 Discontin ued(Reord er) fremanezumab-vf rm (AJOVY AUTOINJECTOR) 225 mg/1.5 mL AtInIndications :Migraine without aura and without status migrainosus, not intractable INJECT 225 MG UNDER THE SKIN EVERY 28 DAYS. 1.5 mL 5 08/17/19 25 Discontin ued(No longer taking) SUMAtriptan (TOSYMRA) 10 mg/actuation Pollock 10 mg by Nasal route daily as needed (Migraine). BRAND NAME MEDICALLY NECESSARY 6 each 5 02/21/20 25 Discontin ued(Reord er) Active Problems Problem Noted Date Diagnosed Date Nontoxic multinodular goiter 08/17/2021 Encounters Date Type Department Care Team Description 03/15/2025 Orders Only [facility] Surgical Oncology [address] [facility], 4th Floor, [address] [place] [address] Karen Watts MD Malignant neoplasm of right female breast, unspecified estrogen receptor status, unspecified site of breast (Primary Dx) 03/14/2025 Documentation [facility] Child Psychiatry [address] [facility], 6th [address], [address] [place] [address] Afia Shelton, PhD 03/13/2025 2:00 PM EDT Office Visit [facility] [address] 9th [address], [address] [place] [address] Karen Watts MD Invasive ductal carcinoma of breast, female, right (Primary Dx) 03/12/2025 3:20 PM EDT - 03/12/2025 11:59 PM EDT Hospital Encounter [facility] [address] [place] [address] Karen Watts MD Arrived Discharge Disposition: Home or Self Care 03/12/2025 Orders Only [facility], [facility], [facility] [place] [address] [facility], 9th [place] [address] Luisa Neves Malignant neoplasm of female breast, unspecified estrogen receptor status, unspecified laterality, unspecified site of breast (Primary Dx) 03/12/2025 Ancillary Orders [facility] [address] [place] [address] Karen Watts MD Cancer (Primary Dx) 03/12/2025 Ancillary Orders [facility] [address] [place] [address] Karen Watts MD 03/12/2025 Ancillary Orders [facility] [address] [place] [address] Karen Watts MD 03/12/2025 Ancillary Orders [facility] [address] [place] [address] Karen Watts MD 03/12/2025 Ancillary Orders [facility] [address] [place] [address] Karen Watts MD 03/12/2025 Ancillary Orders [facility] [address] [place] [address] Karen Watts MD 03/12/2025 Ancillary Orders [facility] [address] [place] [address] Karen Watts MD 03/12/2025 Ancillary Orders [facility] [address] [place] [address] Karen Watts MD 03/12/2025 Ancillary Orders [facility] [address] [place] [address] Karen Wtats MD 03/12/2025 Ancillary Orders [facility] [address] [place] [address] Karen Watts MD 03/08/2025 [facility] [address] 9[address], [address] [place] [address] Esme Soria, RENEE 03/05/2025 12:05 AM EDT Hospital Encounter [facility] [address] [place] [address] Karen Watts MD 03/05/2025 Hospital Encounter [facility] [address] [place] [address] Karen Watts MD 03/05/2025 Hospital Encounter [facility] [address] [place] [address] Karen Watts MD Discharge Disposition: Home or Self Care 03/04/2025 Hospital Encounter [facility] [address] [place] [address] Karen Watts MD Discharge Disposition: Home or Self Care 03/04/2025 Hospital Encounter [facility] [address] [place] [address] Karen Watts MD 02/20/2025 11:[address] [facility] Neurology at [address] [place] [address] Eliel, Rosanne, PA-C Migraine without aura and without status migrainosus, not intractable (Primary Dx) 01/31/2025 - 01/31/2025 11:59 PM EDT Hospital Encounter [facility] [address] [place] [address] Karen Watts MD Discharge Disposition: Home or Self Care 01/15/[address] [facility] Neurology at [address] [address] Andre Deng MD Medication Refill 01/07/[address] [facility] Neurology at [address] [address] Andre Deng MD Medication Refill from Last [...] Orientation Straight 03/08/2025 8: 40 AM EDT Last Filed Vital Signs Vital Sign [...] Mass Index 21.76 03/13/2025 2:02 PM EDT Plan of Treatment Upcoming Encounters Date Type Department Care Team (Late st Contact Info) Description 03/25/2025 11:00 AM EST Pre-Admission Testing [facility] Pre-Procedure Evaluation Department Please [place] [phone] Karen Watts MD [address] [place] [phone] [email or web address] 03/29/2025 Hospital Encounter [facility] PERIOPERATIVE DEPT [address] [place] [phone] Karen Watts MD [address] [place] [phone] [email or web address] 03/29/2025 Procedure Pass [facility] PERIOPERATIVE DEPT [address] [place] [phone] 03/29/2025 9:30 AM EST Procedure visit [facility] [address] [place] [address], [address] [place] [address] Karen Watts MD [address] [place] [phone] [email or web address] Scheduled Procedures Name Priority Associated Diagnoses Date/Ti me MASTECTOMY Malignant neoplasm of right female breast, unspecified estrogen receptor status, unspecified site of breast BIOPSY SENTINEL LYMPH NODE BREAST Malignant neoplasm of right female breast, unspecified estrogen receptor status, unspecified site of breast IMMEDIATE RECONSTRUCTION GLENN AST WITH IMPLANT Malignant neoplasm of right female breast, unspecified estrogen receptor status, unspecified site of breast Health Maintenance Due Date Last Done Comments HEPATITIS C SCREENING 1998 HIV ONE-TIME SCREENING (18-65 YEARS) 1998 PNEUMOCOCCAL VACCINES (0-49 years) (1 of 2 - PCV) 09/19/1999 PAP SMEAR 2001 COVID-19 VACCINE ( season) 2025 04/10/2024, 04/28/2023, 04/02/2022, Additional history exists DEPRESSION SCREENING 02/19/2025 02/20/2024 Adult Td,Tdap Booster 04/12/2026 04/12/2016 MAMMOGRAM 03/12/2027 03/12/2025, 02/14, 03/04/2025, Additional history exists HEPATITIS A VACCINES Aged Out 07/29/2006 No long er eligible based on patient's age to complete this topic SMOKING STATUS SCREENING (Once After 26 Yrs) Completed 02/20/2024 INFLUENZA VACCINE Completed 02/15/2025, , 02/15/2023, Additional history exists HIB VACCINES Aged Out No longer eligi [...] CONSULT Routine 03/12/2025 3:20 PM EDT Cancer BI US BREAST OUTSIDE (NO INTERPRETATION) Routine 03/05/2025 12:05 AM EDT OUTSIDE PATHOLOGY 03/05/2025 BI US BREAST OUTSIDE (NO INTERPRETATION) Routine 03/05/2025 12:00 AM EDT BI MAMMOGRAM OUTSIDE (NO INTERPRETATION) Routine 03/05/2025 12:00 AM EDT OUTSIDE PROCEDURE 03/05/2025 OUTSIDE IMAGING 03/04/2025 BI MAMMOGRAM OUTSIDE (NO INTERPRETATION) Routine 03/04/2025 12:00 AM EDT BI US BREAST OUTSIDE (NO INTERPRETATION) Routine 03/04/2025 12:00 AM EDT BI MAMMOGRAM OUTSIDE (NO INTERPRETATION) Routine 01/31/2025 12:00 AM EDT from Last 3 Months Results * (ABNORMAL) Mammogram Outside With Interpretation Or Consult (03/12/2025 3:20 PM EDT) 03/13/2025 10:4 1 AM EDT Impressions [facility] - 03/13/2025 2:16 PM EDT 1. Biopsy-proven [...] report originally created by Chas Dietrich. Narrative [facility] - 03/13/2025 2:16 PM EDT BI MAMMOGRAM OUTSIDE WITH INTERPRETATION OR CONSULT Additional patient information: 44-year-old patient with a new diagnosis of right invasive ductal carcinoma, presents for oncologic management. COMPARISON: No relevant prior MGB imaging is available at time of dictation. Only the submitted outside imaging is used for comparison. TECHNIQUE: The imaging reviewed below was performed at an outside institution. [facility] facilities are not responsible for image quality, completeness of this examination, or accuracy of patient identity. At the request of the patient's referring clinician, we have been asked to interpret the examination(s) pertinent to facilitating breast care at [facility]. OUTSIDE IMAGING REVIEWED: Mammogram(s): - Bilateral screening [...] ultrasound-guided breast biopsy (03/05/2025). Ultrasound is an heel nailing machine operator-dependent real-time examination and therefore no interpretation [...] appropriate position. PATHOLOGY (PER OUTSIDE FACILITY; NO [facility] REVIEW AVAILABLE AT TIME OF THIS REPORT): [...] reviewed below was performed at an outsideinstitution. [facility] facilities are not responsible for imagequality, completeness of this examination, or accuracy of patientidentity. At the request of the patient's referring clinician, we havebeen asked to interpret the examination(s) pertinent to facilitatingbreast care at [facility]. OUTSIDE IMAGING REVIEWED: Mammogram(s): - Bilateral screening [...] ultrasound-guided breast biopsy (03/05/2025). Ultrasound is an heel nailing machine operator-dependent real-time examination and therefore nointerpretation can be rendered on the submitted US imaging. Any USfindings mentioned below are based only on what has been described [facility] reports. MRI(s): - None. [...] appropriate position. PATHOLOGY (PER OUTSIDE FACILITY; NO [facility] REVIEW AVAILABLE AT TIME OF THISREPORT): *Breast, [...] TOBIAS OUTSIDE IMAGING W/ INTERPRETATION Final Result [facility] [address] [place] [address] * US Breast Outside (No Interpretation) (03/05/2025 12:05 AM EDT) Narrative [facility] IMG INTERFACES - 03/12/2025 8:21 AM EDT This study is for PACS storage only and not for interpretation. us Karen TOBIAS OUTSIDE IMAGING W/OUT INTERPRETATION Final Result Performing Organization Address [facility] Co de Phone Number [facility] IMG INTERFACES * Outside Procedure (03/05/2025) us Scanning Interface Provider PROCEDURE/MINOR SURG ICAL PERFORMABLES Final Result * Outside Pathology (03/05/2025) us Scanning Interface Provider PATHOLOGY ORDERABLES Final Result * US Breast Outside (No Interpretation) (03/05/2025 12:00 AM EDT) Narrative [facility] IMG INTERFACES - 03/12/2025 8:17 AM EDT This study is for PACS storage only and not for interpretation. us Karen TOBIAS OUTSIDE IMAGING W/OUT INTERPRETATION Final Result Performing Organization Address [facility] de Phone Number [facility] IMG INTERFACES * Mammogram Outside (No Interpretation) (03/05/2025 12:00 AM EDT) Narrative [facility] IMG INTERFACES - 03/12/2025 8:16 AM EDT This study is for PACS storage only and not for interpretation. us Karen TOBIAS OUTSIDE IMAGING W/OUT INTERPRETATION Final Result Performing Organization Address [facility] de Phone Number [facility] IMG INTERFACES * Outside Imaging Report Only (03/04/2025) us Scanning Interface Provider IMG XR CHEST Aminata l Result * US Breast Outside (No Interpretation) (03/04/2025 12:00 AM EDT) Narrative [facility] IMG INTER[facility]AC[facility] - 03/12/2025 8:21 AM EDT This study is for PACS storage only and not for interpretation. us Karen rocha MD IMG OUTSIDE IMAGING W/OUT INTERPRETATION Final Result Performing Organization Address City/[facility] de Phone Number [facility] IMG INTERFACES * Mammogram Outside (No Interpretation) (03/04/2025 12:00 AM EDT) Narrative [facility] - 03/12/2025 8:21 AM EDT This study is for PACS storage only and not for interpretation. us Karen rocha MD IMG OUTSIDE IMAGING W/OUT INTERPRETATION Final Result Performing Organization Address [facility] de Phone Number [facility] IM[facility] INTERFAC[facility] * Mammogram Outside (No Interpretation) (01/31/2025 12:00 AM EDT) Narrative [facility] - 03/12/2025 8:21 AM EDT This study is for PACS storage only and not for interpretation. us Karen rocha MD IMG OUTSIDE IMAGING W/OUT INTERPRETATION Final Result Performing Organization Address [facility] de Phone Number [facility] IMG INTERFACES from Last 3 Months Insurance [facility] [employer] [facility] [employer]EF[employer] ADMIN[employer]RAT[employer] [facility] [employer] [facility] ADMINISTRATORS [facility] [employer] ADMINISTRATORS [facility] [employer] [place] [employer] [place] [address] Care Teams Commercial Green Building Designer Relationship Specialty Start Date End Date Natalie Blevins MD [address] [place] [address] PCP - General Internal Medicine 12/01/23 Cesilia Betancourt MD [address] [address] [email or web address] Medical Oncology 03/12/25 Todd Priest MD [address] [place] [address] [email or web address] Breast Surgery 03/12/25 Additional Source Comments The information contained in this document represents components of the legal health record. It is not the complete legal health record.[facility]
--- OUTSIDE RECORDS SUMMARY | 2025-03-15 11:08 | XMS_ITS | Encounter Summary ---
Author Organization [facility] Address [address] [facility] [address] [place] [address] Phone Care Team Providers Care Principal Gifts Officer Name Role Phone Natalie Blevins MD Primary Care Provider Cesilia Betancourt MD Unavailable Todd Priest MD Unavailable Encounter Details Date Type Department Care Team (Late st Contact Info) Description 03/12/2025 Ancillary Orders [facility] General Imaging [address] [place] [address] Karen Watts MD [address] [place] [address] [email or web address] [email or web address] Social History Tobacco Use Types [...] Description 03/25/2025 11:00 AM EST Pre-Admission Testing [facility] Pre-Procedure Evaluation Department Please [place] [phone] Karen Watts MD [address] [place] [phone] [email or web address] 03/29/2025 Hospital Encounter [facility] PERIOPERATIVE DEPT [address] [place] [phone] Karen Watts MD [address] [place] [phone] [email or web address] 03/29/2025 Procedure Pass [facility] PERIOPERATIVE DEPT [address] [place] [phone] 03/29/2025 9:30 AM EST Procedure visit [facility] Breast Center [address] [place] [address], [address] [place] [address] Karen Watts MD [address] [place] [phone] [email or web address] Scheduled Procedures Name Priority Associated Diagnoses [...] encounter Results * Mammogram Outside (No Interpretation) (02/25/2023 12:00 AM EDT) Narrative [facility] IMG INTERFACES - 03/12/2025 8:22 AM EDT This study is for PACS storage only and not for interpretation. Karen Barbara rocha MD IMG OUTSIDE IMAGING W/OUT INTERPRETATION Final Result [facility] IMG INTERFACES documented in this encounter Visit Diagnoses Not on filedocumented in this encounter Additional Health Concerns Assessment Noted Time PHQ-2 Depression Total Score: 0 02/20/20 24 1:05 PM EDT documented as of this encounter Care Teams Principal Gifts Officer Relationship Specialty Start Date End Date Natalie Blevins MD [address] [place] [phone] PCP - General Internal Medicine 12/01/23 Cesilia Betancourt MD [address] [place] [phone] [email or web address] Medical Oncology 03/12/25 Todd Priest MD [address] [place] [phone] [email or web address] Breast Surgery 03/12/25 documented as of this encounter Additional Source Comments The information contained in this document represents components of the legal health record. It is not the complete legal health record.[facility]
--- OUTSIDE RECORDS SUMMARY | 2025-03-15 11:08 | XMS_ITS | Encounter Summary ---
Author Organization [facility] Address [address] [place] [address] [address] [place] [address] Phone Care Team Providers Care Hydrology Technician Name Role Phone Natalie Blevins MD Primary Care Provider Cesilia Betancourt MD Unavailable [phone] Todd Priest MD Unavailable Encounter Details Date Type Department Care Team (Late st Contact Info) Description 03/14/2025 Documentation [facility] [place] Psychiatry [address], 6th [address], [address] [place] [address] Afia Shelton, PhD [address] [facility] [address] [place] [address] [email or web address] Social History Tobacco Use Types Packs/Day [...] AM EDT documented as of this encounter Progress Notes * Afia Shelton, PhD - 03/14/2025 5:11 PM EDT [facility] Parenting At a Challenging Time Program 03/14/2025 Patient name: Layla Quinn Referral source: Karen Holcomb MD Demographics: Ms. Layla Quinn is a 44 y.o. female who is the parent of 2 children, with a recent diagnosis of breast cancer. Comments: Spoke by telephone with Ms. Layla Quinn for an initial PACT consultation. Described the overall goals of the PACT Program as providing parent education to help parents to support children's adjustment to a parent's medical illness. Distinguished this psycho-educational parent guidance c onsultation from psychotherapy or psychological treatment intended to assess or treat a mental health concern in parents or children. Indicated that PACT clinicians work collaboratively with the patient's medical team and also document in the electronic medical record. Completed a focused chart review prior to outreach and reviewed with Layla her recent diagnosis with breast cancer following regular screening due to heightened familial risk, and plan for bilateral mastectomies, with additional treatment recommendations based on final pathology. Layla and her Rosendo are together the parents of two sons, ages 8 and 11 years. She describedboth as complex; her older son is brilliant - very scientifically minded and well informed beyond what is typical for his age. He picks up on everything- what is said and not said and is very sensitive to emotions. He has a therapist to help him with anxiety and also has been diagnosed with ASD.Their younger son has had multiple surgeries as an and remains in the the cardiac neurodevelopmental program at [facility]. He has big emotions, struggles with flexibility, and has a hard time reading the room in a variety of social situations. He also has a therapist, and Layla has been in touchwith both of them for advice. Encouraged her to remain in contact with them and to run by them any recommendations from our discussion today. We discussed her plan to share the diagnosis with the boys, individually first then as a family. Wediscussed talking to her older son about his understanding of cancer given his interest in science,and clarifying what can be generalized to her situation and what cannot. Discussed being reassuringwithout overpromising. Considered impact on their daily lives of her surgery, and how the boys might adjust to this. Her is already the primary provider of the day to day things (eg, getting them ready for school) while she takes care of bigger picture issues (medical appts, school advocacy), so in the short termthe boys will be well supported in their usual activities. Shared that I or others on the PACT team are available for future conversations whenever helpful. Discussed options for follow-up and agreed that I will follow- up with a telephone call on 03/27/25. Also, indicated I can be contacted through [facility] [place], provided the PACT Program voicemail number ([phone]), and shared the PACT Program email address ( ) and noted that this mode of communication is not encrypted. We appreciate the referral and the opportunity to participate in Ms. Quinn's care. PACT clinician: Rosibel Shelton, PhD documented in this encounter Plan of Treatment Upcoming Encounters Date Type Department Care Team ([facility] st Contact Info) Description 03/25/2025 11:00 AM EST Pre-Admission Testing [facility] [place] Pre-Procedure Evaluation Department [place] [address] Karen Watts MD [address] [place] [address] [email or web address] 03/29/2025 Hospital Encounter [facility] [place] PERIOPERATIVE DEPT [address] [place] [phone] Karen Watts MD [address] [place] [address] [email or web address]@[email or web address] 03/29/2025 Procedure Pass [facility] [place]IVE DEPT [address] [place] [address] 03/29/2025 9:30 AM EST Procedure visit [facility] [address], [address] [place] [address] Karen Watts MD [address] [place] [address] [email or web address]@[email or web address] Scheduled Procedures Name Priority Associated Diagnoses Date/Ti [...] documented as of this encounter Care Teams Hydrology Technician Relationship Specialty Start Date End Date Natalie Blevins MD [address] [place] [address] PCP - General Internal Medicine 12/01/23 Cesilia Betancourt MD [address] [place] [address] [email or web address] Medical Oncology 03/12/25 Todd Priest MD [address] [place] [address] [email or web address] u Breast Surgery 03/12/25 documented as of this encounter Additional Source Comments The information contained in this document represents components of the legal health record. It is not the complete legal health record.[facility]
--- OUTSIDE RECORDS SUMMARY | 2025-03-15 11:08 | XMS_ITS | Patient Health Record ---
Author Organization [facility] Address [address] [place] [address] Care Team Providers Care Human Resources Recruiter Name Role Phone NICOLASA ROJAS MD Primary Care Provider Dee Dasilva Unavailable [phone] Reason For Referral No Information Medications Medication SIG (Take, Route, Frequency, Duration) Notes Start Date End Date Status Multi For Her Orally Active Topamax 50 MG 1 tablet at bedtime Orally Once a day Active SUMAtriptan Succinate 25 MG Orally Active Problems Problem Type SNOMED Code ICD Code Onset Dates Problem Status W/U Status Risk Notes Problem Cyst of thyroid (03555778) Cyst of thyroid (246.2) Active confirmed Problem Migraine (disorder) (26570182) Migraine, unspecified without mention of intractable migraine without mention of status migrainosus (346.90) Active confirmed Major Problem Abnormal vaginal bleeding (284149344) Other disorder of menstruation and other abnormal bleeding from female genital tract (626.8) Active confirmed Diag Plan Of Treatment No Information Insurance Providers Payer Name Payer Address Payer Phone Subscriber Number Group Number Insured Name Patient Relationship to Insured Coverage Start Date Coverage End Date [employer] [address] [address] [place] [address] [id number] DOROTHY MODI Self - patient is the [...]
--- OUTSIDE RECORDS SUMMARY | 2025-03-15 11:08 | XMS_ITS | Encounter Summary ---
Author Organization [facility] Address [address] [place] [address] Phone Care Team Providers Care Mushroom Growing Supervisor Name Role Phone Natalie Blevins MD Primary Care Provider Cesilia Betancourt MD Unavailable [phone] Todd Priest MD Unavailable Encounter Details Date Type Department Care Team (Late st Contact Info) Description 03/12/2025 Ancillary Orders [facility] General Imaging [address] [place] [address] Karen Watts MD [address] [place] [address] [email or web address] Cancer (Primary Dx) Social History Tobacco Use Types [...] 03/25/2025 11:00 AM EST Pre-Admission Testing [facility] Pre-Procedure Evaluation Department Please [place] [address] Karen Watts MD [address] [place] [address] YEYO@[email or web address] 03/29/2025 Hospital Encounter [facility] PERIOPERATIVE DEPT [address] [place] [phone] Karen Watts MD [address] [place] [address] YEYO@[email or web address] 03/29/2025 Procedure Pass [facility] PERIOPERATIVE DEPT [address] [place] [phone] 03/29/2025 9:30 AM EST Procedure visit [facility] [address] [place] [address], [address] [place] [address] Karen Watts MD [address] [place] [address] [email or web address]@[email or web address] Scheduled Procedures Name Priority Associated Diagnoses Date/Ti [...] documented as of this encounter Results * (ABNORMAL) Mammogram Outside With Interpretation Or Consult (03/12/2025 3:20 PM EDT) 03/13/2025 10:4 1 AM EDT Impressions [facility] - 03/13/2025 2:16 PM EDT 1. Biopsy-proven [...] report originally created by Chas Dietrich. Narrative [facility] - 03/13/2025 2:16 PM EDT BI MAMMOGRAM OUTSIDE WITH INTERPRETATION OR CONSULT Additional patient information: 44-year-old patient with a new diagnosis of right invasive ductal carcinoma, presents for oncologic management. COMPARISON: No relevant prior MGB imaging is available at time of dictation. Only the submitted outside imaging is used for comparison. TECHNIQUE: The imaging reviewed below was performed at an outside institution. [facility] facilities are not responsible for image quality, completeness of this examination, or accuracy of patient identity. At the request of the patient's referring clinician, we have been asked to interpret the examination(s) pertinent to facilitating breast care at [facility]. OUTSIDE IMAGING REVIEWED: Mammogram(s): - Bilateral screening [...] ultrasound-guided breast biopsy (03/05/2025). Ultrasound is an flattening machine operator-dependent real-time examination and therefore no [...] position. PATHOLOGY (PER OUTSIDE FACILITY; NO [facility] REVIEW AVAILABLE AT TIME OF THIS REPORT): [...] reviewed below was performed at an outsideinstitution. [facility] facilities are not responsible for imagequality, completeness of this examination, or accuracy of patientidentity. At the request of the patient's referring clinician, we havebeen asked to interpret the examination(s) pertinent to facilitatingbreast care at [facility]. OUTSIDE IMAGING REVIEWED: Mammogram(s): - Bilateral screening [...] ultrasound-guided breast biopsy (03/05/2025). Ultrasound is an flattening machine operator-dependent real-time examination and therefore nointerpretation can be rendered on the submitted US imaging. Any USfindings mentioned below are based only on what has been described in theoutside imaging reports. MRI(s): - None. FINDINGS: SCREENING [...] position. PATHOLOGY (PER OUTSIDE FACILITY; NO [facility] REVIEW AVAILABLE AT TIME OF THISREPORT): *Breast, [...] edited the report originallycreated by Chas Dietrich. us Karen TOBIAS OUTSIDE IMAGING W/ INTERPRETATION Final Result [address] [address] documented in this encounter Visit Diagnoses Diagnosis Cancer- Primary Other malignant neoplasm of unspecified site Cancer Other malignant neoplasm of unspecified site documented in this encounter Additional Health Concerns Assessment Noted Time PHQ-2 Depression Total Score: 0 02/20/20 24 1:05 PM EDT documented as of this encounter Care Teams Mushroom Growing Supervisor Relationship Specialty Start Date End Date Natalie Blevins MD [address] [place] [address] PCP - General Internal Medicine 12/01/23 Cesilia Betancourt MD [address] [place] [address] [email or web address] Medical Oncology 03/12/25 Todd Priest MD [address] [place] [address] [email or web address] Breast Surgery 03/12/25 documented as of this encounter Additional Source Comments The information contained in this document represents components of the legal health record. It is not the complete legal health record.[facility]
--- OUTSIDE RECORDS SUMMARY | 2025-03-15 11:09 | XMS_ITS | Encounter Summary ---
Author Organization [facility] Address [address] [address] Phone Care Team Providers Care Drier Tender Naphthalene Name Role Phone Natalie Blevins MD Primary Care Provider Cesilia Betancourt MD Unavailable [phone] Todd Priest MD Unavailable Reason for Visit * Reason Comments Medication Refill Encounter Details Date Type Department Care Team (Late st Contact Info) Description 01/07/[address] [facility] Neurology at [address] [address] Andre Deng MD [address] [place] [address] Department of Neurology, [place] [address] [email or web address] Medication Refill Social History Tobacco [...] Description 03/25/2025 11:00 AM EST Pre-Admission Testing [facility] Pre-Procedure Evaluation Department [place] [address] Karen Watts MD [address] [place] [address] YEYO@[email or web address] 03/29/2025 Hospital Encounter [facility] [address] [place] [phone] Karen Watts MD [address] [place] [address] YEYO@[email or web address] 03/29/2025 Procedure Pass [facility]PT [address] [place] [phone] 03/29/2025 9:30 AM EST Procedure visit [facility] [facility] [address] [place] [address], [address] [place] [address] Karen Watts MD [address] [place] [address] YEYO@[email or web address] Scheduled Procedures Name Priority Associated Diagnoses [...] documented as of this encounter Care Teams Drier Tender Naphthalene Relationship Specialty Start Date End Date Natalie Blevins MD [address] [place] [address] PCP - General Internal Medicine 12/01/23 Cesilia Betancourt MD [address] [place] [address] [email or web address] Medical Oncology 03/12/25 Todd Priest MD [address] [place] [address] [email or web address] Breast Surgery 03/12/25 documented as of this encounter Additional Source Comments The information contained in this document represents components of the legal health record. It is not the complete legal health record.[facility]
--- OUTSIDE RECORDS SUMMARY | 2025-03-15 11:09 | XMS_ITS | Encounter Summary ---
Author Organization [facility] Address [address] [facility] [address] [place] [address] Phone Care Team Providers Care Auto Parts Manager Name Role Phone Natalie Blevins MD Primary Care Provider Cesilia Betancourt MD Unavailable Todd Priest MD Unavailable Encounter Details Date Type Department Care Team (Late st Contact Info) Description 03/12/2025 Ancillary Orders [facility] General Imaging [address] [place] [address] Karen Watts MD [address] [place] [address] [email or web address] Social History Tobacco Use Types Packs/Day [...] Pre-Procedure Evaluation Department [place] [address] Karen Watts MD [address] [place] [address] [email or web address] 03/29/2025 Hospital Encounter [facility] PERIOPER[facility]IVE DEPT [address] [place] [phone] Karen Watts MD [address] [place] [address] YEYO@[email or web address] 03/29/2025 Procedure Pass [facility] PERIOPERATIVE DEPT [address] [place] [phone] 03/29/2025 9:30 AM EST Procedure visit [facility] [address] [place] [address], [address] [place] [address] Karen Watts MD [address] [place] [address] [email or web address] Scheduled Procedures Name Priority Associated Diagnoses Date/Ti [...] encounter Results * Mammogram Outside (No Interpretation) (03/05/2025 12:00 [...] documented as of this encounter Care Teams Auto Parts Manager Relationship Specialty Start Date End Date Natalie Blevins MD [address] [place] [address] PCP - General Internal Medicine 12/01/23 Cesilia Betancourt MD [address] [place] [address] [email or web address] Medical Oncology 03/12/25 Todd Priest MD [address] [place] [address] [email or web address] Breast Surgery 03/12/25 documented as of this encounter Additional Source Comments The information contained in this document represents components of the legal health record. It is not the complete legal health record.[facility]
--- OUTSIDE RECORDS SUMMARY | 2025-03-15 11:09 | XMS_ITS | Encounter Summary ---
Author Organization [facility] Address [address] [facility] [address] [place] [address] Phone Care Team Providers Care Ultrasonic Solderer Name Role Phone Natalie Blevins MD Primary Care Provider Cesilia Betancourt MD Unavailable Todd Priest MD Unavailable Encounter Details Date Type Department Care Team (Late st Contact Info) Description 03/12/2025 Ancillary Orders [facility] General Imaging [address] [place] [address] Karen Watts MD [address] [place] [address] [email or web address] Social History Tobacco Use Types Packs/Day Years [...] Description 03/25/2025 11:00 AM EST Pre-Admission Testing [facility] Pre-Procedure Evaluation Department [place] [address] Karen Watts MD [address] [place] [address] YEYO@[email or web address] 03/29/2025 Hospital Encounter [facility] PERIOPERATIVE DEPT [address] [place] [phone] Karen Watts MD [address] [place] [address] [email or web address]@[facility] 03/29/2025 Procedure Pass [facility] PERIOPER[facility]IVE DEPT [address] [place] [phone] 03/29/2025 9:30 AM EST Procedure visit [facility] [address] [place] [address], [address] [place] [address] Karen Watts MD [address] [place] [address] YEYO@[email or web address] Scheduled Procedures Name Priority Associated [...] documented as of this encounter Results * US Breast Outside (No Interpretation) (03/04/2025 12:00 AM EDT) Narrative [facility] IMG INTERFACES - 03/12/2025 8:21 AM EDT This study is for PACS storage only and not for interpretation. Karen Barbara rocha MD IMG OUTSIDE IMAGING W/OUT INTERPRETATION Final Result [facility] IMG INTERFACES documented in this encounter Visit Diagnoses Not on filedocumented in this encounter Additional Health Concerns Assessment Noted Time PHQ-2 Depression Total Score: 0 02/20/20 24 1:05 PM EDT documented as of this encounter Care Teams Ultrasonic Solderer Relationship Specialty Start Date End Date Natalie Blevins MD [address] [place] [address] PCP - General Internal Medicine 12/01/23 Cesilia Betancourt MD [address] [place] [address] [email or web address] Medical Oncology 03/12/25 Todd Priest MD [address] [place] [address] [email or web address] u Breast Surgery 03/12/25 documented as of this encounter Additional Source Comments The information contained in this document represents components of the legal health record. It is not the complete legal health record.[facility]
--- OUTSIDE RECORDS SUMMARY | 2025-03-15 11:09 | XMS_ITS | Encounter Summary ---
Author Organization [facility] Address [address] [facility] [address] [place] [address] Phone Care Team Providers Care Service Team Leader Name Role Phone Natalie Blevins MD Primary Care Provider Cesilia Betancourt MD Unavailable [phone] Todd Priest MD Unavailable Encounter Details Date Type Department Care Team (Late st Contact Info) Description 03/12/2025 Ancillary Orders [facility] General Imaging [address] [place] [address] Karen Watts MD [address] [place] [address] [email or web address] Social History Tobacco Use Types [...] Description 03/25/2025 11:00 AM EST Pre-Admission Testing [facility] Pre-Procedure Evaluation Department Please [place] [address] Karen Watts MD [address] [place] [address] YEYO@[email or web address] 03/29/2025 Hospital Encounter [facility] PERIOPERATIVE DEPT [address] [place] [phone] Karen Watts MD [address] [place] [address] YEYO@[email or web address] 03/29/2025 Procedure Pass [facility] PERIOPERATIVE DEPT [address] [place] [phone] 03/29/2025 9:30 AM EST Procedure visit [facility] [address] [place] [address], [address] [place] [address] Karen Watts MD [address] [place] [address] [email or web address]@[email or web address] Scheduled Procedures Name Priority Associated Diagnoses Date/Ti [...] (No Interpretation) (03/05/2025 12:00 AM EDT) Narrative [facility] IMG INTERFACES - 03/12/2025 8:17 AM EDT This study is for PACS storage only and not for interpretation. Karen Barbara rocha MD IMG OUTSIDE IMAGING W/OUT INTERPRETATION Final Result [facility] IMG INTERFACES documented in this encounter Visit Diagnoses Not on filedocumented in this encounter Additional Health Concerns Assessment Noted Time PHQ-2 Depression Total Score: 0 02/20/20 24 1:05 PM EDT documented as of this encounter Care Teams Service Team Leader Relationship Specialty Start Date End Date Natalie Blevins MD [address] [place] [address] PCP - General Internal Medicine 12/01/23 Cesilia Betancourt MD [address] [place] [address] [email or web address] Medical Oncology 03/12/25 Todd Priest MD [address] [place] [address] [email or web address] u Breast Surgery 03/12/25 documented as of this encounter Additional Source Comments The information contained in this document represents components of the legal health record. It is not the complete legal health record.[facility]
--- OUTSIDE RECORDS SUMMARY | 2025-03-15 11:09 | XMS_ITS | Encounter Summary ---
Author Organization [facility] Address [address] [place] [phone] Phone Care Team Providers Care Managed Services Consultant Name Role Phone Natalie Blevins MD Primary Care Provider Cesilia Betancourt MD Unavailable Todd Priest MD Unavailable Encounter Details Date Type Department Care Team (Late st Contact Info) Description 03/12/2025 Ancillary Orders [facility] [address] [place] [address] Karen Watts MD [address] [place] [address] [email or web address] Social History Tobacco Use Types Packs/Day Years [...] Description 03/25/2025 11:00 AM EST Pre-Admission Testing [facility] [place] [place] Pre-Procedure Evaluation Department Please [place] [phone] Karen Watts MD [address] [place] [phone] [email or web address] 03/29/2025 Hospital Encounter [facility] [place] [place] PERIOPERATIVE DEPT [address] [place] [phone] Karen Watts MD [address] [place] [id number] [email or web address] 03/29/2025 Procedure Pass [facility] [place] [place] PERIOPERATIVE DEPT [address] [place] [id number] 03/29/2025 9:30 AM EST Procedure visit [facility] [address] [place] [address], [address] [place] [address] Karen Watts MD [address] [place] [phone] [email or web address] Scheduled Procedures Name Priority Associated [...] (No Interpretation) (03/05/2025 12:05 AM EDT) Narrative [facility] [place] [place] IMG INTERFACES - 03/12/2025 8:21 AM EDT This study is for PACS storage only and not for interpretation. Karen Barbara rocha MD IMG OUTSIDE IMAGING W/OUT INTERPRETATION Final Result [facility] [place] [place] IMG INTERFACES documented in this encounter Visit Diagnoses Not on filedocumented in this encounter Additional Health Concerns Assessment Noted Time PHQ-2 Depression Total Score: 0 02/20/20 24 1:05 PM EDT documented as of this encounter Care Teams Managed Services Consultant Relationship Specialty Start Date End Date Natalie Blevins MD [address] [place] [phone] PCP - General Internal Medicine 12/01/23 Cesilia Betancourt MD [address] [place] [phone] [email or web address] Medical Oncology 03/12/25 Todd Priest MD [address] [place] [phone] [email or web address] Breast Surgery 03/12/25 documented as of this encounter Additional Source Comments The information contained in this document represents components of the legal health record. It is not the complete legal health record.[facility]
== END 2025-03-15 09:57 | disposition home or self-care (01) ==
LOC: HO.MAMMO 09:56
PROVIDERS: Visit Provider Family Medicine
DX: R63.4 Abnormal weight loss (principal); Z13.820 Encounter for screening for osteoporosis; Z82.62 Family history of osteoporosis
CPT/HCPCS: 77080

== ENCOUNTER → 2025-03-15 10:00 | Outpatient (BNV) | payer OTHER, SELFPAY | PROVIDERS: Visit Provider Radiology Diagnostic Radiology | DX: E28.39 Other primary ovarian failure (principal) | CPT/HCPCS: 77080 ==